=== PATIENT | female | born 1970 | race Caucasian/White ===

== ENCOUNTER 2021-09-20 15:33 | Emergency (ER) | payer MEDICARE, MEDICAID, SELFPAY ==
[2021-09-20] VITALS (14 sets, daily range): BP systolic 92–143; BP diastolic 66–83; PULSE 77–129; RESP 10–21; TEMP 36.6–36.7; O2SAT 97–100
--- NOTE | ~2021-09-20 | XR_ITS ---
EXAMINATION: XR chest 1V portable EXAM DATE: 09/20/2021 18:14 INDICATION: cough/covid,weakness and vomiting . TECHNIQUE: Portable AP frontal chest x-ray was obtained. There is no prior study for comparison. FINDINGS: Small amount of focal left basilar airspace disease, probably nonspecific pneumonia. Follow -up chest x-ray is indicated to exclude chronic process, cancer. There are right breast and axillary surgical clips. No pneumothorax or pleural effusion. Narrow cardiac silhouette, hyperinflated lungs. IMPRESSION: 1. Subsegmental left basilar airspace disease could be pneumonia but follow-up chest x-ray indicated to exclude chronic process. Reviewed, dictated and finalized at location A. ONHOLER
[2021-09-20 18:19] LABS: Basophils Percent Auto 0.3 % (0.2-1.2); Eosinophils Percent Auto 0.7 % (0-4.4); Hematocrit 42.7 % (37.0-47.0); Hemoglobin 14.6 g/dL (12.0-15.0); Immature Granulocyte Absolute 0.01 K/mm3 (0.00-0.031); Immature Granulocyte Percent A 0.2 % (0-0.5); Lymphocytes Absolute Auto 1.28 K/mm3 (0.9-3.2); Lymphocytes Percent Auto 22.1 % (18.3-44.2); Mean Corpuscular HGB Conc 34.2 g/dl (32-36); Mean Corpuscular Hemoglobin 29.3 pg (26-34); Mean Corpuscular Volume 85.7 fl (80-100); Monocytes Absolute Auto 0.4 K/mm3 (0.1-0.6); Monocytes Percent Auto 7.1 % (2.6-8.5); Neutrophils Percent Auto 69.6 % (45.5-73.1); Platelet Count Result 249 k/mm3 (150-375); Red Blood Count 4.98 M/mm3 (4.2-5.4); Red Cell Distribution Width 12.8 % (11.5-14.5); White Blood Count 5.8 K/mm3 (4.5-10.0)
[2021-09-20] MEDS: ONDANSETRON INJ 4 MG/2 ML VIAL IV PUSH (18:20)
[2021-09-20] MEDS: SODIUM CHLORIDE 0.9% IV 1,000 ML 999 ML IV CONT (18:24)
[2021-09-20 18:29] LABS: Alanine Aminotransferase 23 U/L (4-35); Albumin Level 5.2 g/dL (3.5-5.1); Alkaline Phosphatase 98 U/L (38-126); Anion Gap 16 mmol/L (8-16); Aspartate Amino Transferase 33 U/L (14-36); Bilirubin,Total 2.6 mg/dL (0.2-1.3); Blood Urea Nitrogen 22 mg/dL (7-17); Calcium 9.5 mg/dL (8.4-10.2); Carbon Dioxide 26 mmol/L (22-30); Chloride 94 mmol/L (98-107); Estimated CRCL calculation 53 ml/min; Estimated Glomerular Filt Rate > 60; Glucose 102 mg/dL (65-110); Potassium 3.4 mmol/L (3.4-5.0); Sodium 136 mmol/L (137-145)
[2021-09-20 18:31] LABS: CRP 0.8 mg/dL (<1.0)
--- NOTE | 2021-09-20 19:44 | PC.NURSE ---
Walk test ordered by ED MD Dr. Wallace. civil design technician currently in room c pt.
--- NOTE | 2021-09-20 19:58 | PC.NURSE ---
Pt unable to take a step with walker and oil change technician assisting. ED MD Wallace updated. 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 When asked why, pt reported it's bc her wc won't fit next to her bed. She never ambulates unassisted. Lives alone and has daily homemaker services. States specifically she is able to accomplish ADLs without assist and does not want to go to residential/assisted living.
--- NOTE | 2021-09-20 20:39 | ED.NAVMDI ---
HPI - Nausea/Vomiting/Diarrhea General Chief complaint: Nausea/Vomiting/Diarrhea Stated complaint: COVID + SOB Time Seen by Provider: 09/20/21 17:27 History of Present Illness HPI Narrative: Patient is a 51-year-old female who presents ER due to concern for becoming Covid positive. Patient test +2 days ago. She reports fevers and chills. She has been having persistent nausea with occasional vomiting. No chest pain or chest pressure. No productive cough. She reports she is feeling short of breath the moment however she is also crying and anxious. Patient is a not vaccinated. No alleviating factors. Related Data Allergies Allergy/AdvReac Type Severity Reaction Status Date / Time hydromorphone [From Dilaudid] Allergy Anaphylaxis Verified 09/20/21 18:16 Review of Systems Review of Systems: All systems reviewed & are unremarkable except as noted in HPI and below Constitutional: Constitutional: Reports chills, Reports fatigue and Reports fever(s) ENT: Denies nasal congestion and Denies sore throat Cardiovascular: Cardiovascular: Denies chest pain and Denies radiating jaw, neck or arm pain Respiratory: Respiratory: Reports cough and Reports dyspnea Gastrointestinal: Gastrointestinal: Denies abdominal pain, Denies diarrhea, Reports nausea and Reports vomiting PMFSH Past Medical History Medical History (Updated 09/20/21 @ 21:24 by Ciaran Wallace MD) Blindness Breast cancer Surgical History Surgical History (Updated 09/20/21 @ 21:24 by Ciaran Wallace MD) H/O mastectomy History of breast reconstruction Exam Narrative: GENERAL: Chronically ill-appearing, well-nourished, and anxious/tearful. HEAD: Normocephalic, atraumatic. ENT: Mucous membranes moist. CHEST: Clear to auscultation. No respiratory distress. HEART: Tachycardic and regular. Normal peripheral pulses. ABDOMEN: Soft, nontender, nondistended. EXTREMITIES: Normal range of motion. No edema. SKIN: Warm, dry, no rash. NEURO: Alert and oriented x3. PSYCH: Normal mood and affect. Course Course Emergency Course: Patient hydrated and given antiemetics. She feels improved. Labs unremarkable. Chest x-ray concerning for Covid pneumonia. Patient without hypoxia. Patient reports able to perform ADLs at home and can get around. She uses a walker to transfer to her wheelchair at home. Vital Signs Vital signs: Vital Signs Temperature 97.9 F 09/20/21 15:54 Pulse Rate 129 H 09/20/21 15:54 Respiratory Rate 20 09/20/21 15:54 Blood Pressure 106/73 09/20/21 15:54 Pulse Oximetry 100 09/20/21 15:54 Temperature 97.9 F 09/20/21 19:20 Pulse Rate 85 09/20/21 19:45 Respiratory Rate 20 09/20/21 19:45 Blood Pressure 143/72 H 09/20/21 19:45 Pulse Oximetry 97 09/20/21 19:45 MDM - Nausea/Vomiting/Diarrhea Lab Data Result diagrams: 09/20/21 18:10 09/20/21 18:10 Labs: Lab Results 09/20/21 09/20/21 09/20/21 Range/Units 18:10 18:10 18:11 WBC 5.8 (4.5-10.0) K/mm3 RBC 4.98 (4.2-5.4) M/mm3 Hgb 14.6 (12.0-15.0) g/dL Hct 42.7 (37.0-47.0) % MCV 85.7 (80-100) fl MCH 29.3 (26-34) pg MCHC 34.2 (32-36) g/dl RDW 12.8 (11.5-14.5) % Plt Count 249 (150-375) k/mm3 MPV 10.0 (7.4-10.4) fl Immature Gran % (Auto) 0.2 (0-0.5) % Neut % (Auto) 69.6 (45.5-73.1) % Lymph % (Auto) 22.1 (18.3-44.2) % Smyth % (Auto) 7.1 (2.6-8.5) % Eos % (Auto) 0.7 (0-4.4) % Baso % (Auto) 0.3 (0.2-1.2) % Lymph # (Auto) 1.28 (0.9-3.2) K/mm3 Smyth # (Auto) 0.4 (0.1-0.6) K/mm3 Eos # (Auto) 0.0 (0-0.3) K/mm3 Baso # (Auto) 0.0 (0.0-0.1) K/mm3 Abs Immat Gran (auto) 0.01 (0.00-0.031) K/mm3 Absolute Neuts (auto) 4.0 (1.3-6.7) K/mm3 Absolute Nucleated RBC 0.0 (0.0-0.012) K/mm3 Nucleated RBC % 0.0 (0.0-0.2) % Sodium 136 L (137-145) mmol/L Potassium 3.4 (3.4-5.0) mmol/L Chloride 94 L (98-107) mmol/L Carbon D
== END 2021-09-20 22:18 | disposition home or self-care (01) ==
PROVIDERS: Emergency Provider Emergency Medicine; PCP Internal Medicine
DX: U07.1 COVID-19 (principal); J12.82 Pneumonia due to coronavirus disease 2019; R11.0 Nausea; Z85.3 Personal history of malignant neoplasm of breast; Z90.10 Acquired absence of unspecified breast and nipple
CPT/HCPCS: 36415; 71045; 80053; 85025; 86140; 96361; 96374; 99284; J2405; J7030

== ENCOUNTER → 2021-10-20 01:02 | Outpatient (CLI) | payer MEDICARE, MEDICAID, SELFPAY ==
[2021-10-20 21:03] LABS: SARS-CoV-2 RNA PCR Positive
== END ==
PROVIDERS: PCP Internal Medicine
DX: U07.1 COVID-19 (principal)
CPT/HCPCS: C9803; U0003; U0005

== ENCOUNTER 2023-11-14 21:00 | Emergency (ER) | payer MEDICARE, MEDICAID, SELFPAY ==
--- NOTE | ~2023-11-14 | CT_ITS ---
EXAMINATION: CT brain wo con DATE: 11/15/2023 01:20 INDICATION: Syncope. TECHNIQUE: Computed tomography (CT) of the head was performed without intravenous contrast. The mA wa s adjusted according to patient size. Iterative reconstruction technique was employed. The dose-lengt h product was 605.33 mGy-cm. COMPARISON: None FINDINGS: There is no intracranial hemorrhage, acute infarction, or abnormal intracranial mass lesion . The ventricles are normal in size. The paranasal sinuses are clear. The mastoid air cells are katlin l. IMPRESSION: 1. Normal brain. Reviewed, dictated and finalized at location A. TIC PARTS DESIGNER IMPRESSION: 1. Normal brain.
--- NOTE | ~2023-11-14 | XR_ITS ---
EXAMINATION: XR chest 2V Exam Date/Time: 11/14/2023 21:40 CARTRIDGE LOADING OPERATOR HISTORY: cp Comparison: 09/20/2021. RESULT: Lines, tubes, and devices: Bilateral axillary and breast surgical clips. Lungs and pleura: Clear. Cardiomediastinal silhouette: Stable. Other: No acute osseous or upper abdominal finding. IMPRESSION: No acute cardiopulmonary process. Reviewed, dictated and finalized at location K. RIDGE LOADING OPERATOR
--- NOTE | ~2023-11-14 | CT_ITS ---
EXAMINATION: CTA chest PE protocol DATE: 11/15/2023 01:20 INDICATION: Syncope. Chest pain. Breast cancer. TECHNIQUE: Computed tomography angiography (CTA) of the chest was performed with 100 mL Omnipaque-350 intravenous contrast timed to evaluate the pulmonary arteries. Coronal maximum intensity projection 3D-reconstructions were created by the technologist. Automated exposure control and iterative reconst ruction technique were employed. The dose-length product was 465.06 mGy-cm. COMPARISON: Chest 2 views 11/14/2023 FINDINGS: There are airspace opacities with volume loss and bronchiectasis in right upper lobe and ri ght middle lobe, consistent with scarring. There is mild atelectasis in left lower lobe and lingula. A calcified left lung nodule is consistent with old granulomatous disease. No pleural effusion. The h eart size is normal. No pericardial effusion. There is no pulmonary embolus. There are bilateral favian st implants. There are changes of cholecystectomy. There is a small focus of old calcified fat necros is in the abdomen. There is a small sliding hiatal hernia. There is mild thoracic spondylosis. IMPRESSION: 1. No pulmonary embolus. 2. Chronic lung disease involving right upper lobe and right middle lobe. 3. Small sliding hiatal hernia. Reviewed, dictated and finalized at location A. NITIES TEACHER
--- NOTE | 2023-11-14 21:01 | ECG_ITS ---
Measurements Intervals Venus Rate: 112 P: 75 MN: 159 QRS: -63 QRSD: 86 T: 60 QT: 302 QTc: 413 Interpretive Statements SINUS TACHYCARDIA POSSIBLE LEFT ATRIAL ENLARGEMENT [-0.1mV P WAVE IN V1/V2] MARKED LEFT AXIS DEVIATION [QRS AXIS < -30] NONSPECIFIC T-WAVE ABNORMALITY BASELINE ARTIFACT LIMITS INTERPRETATION NO PREVIOUS ECG AVAILABLE FOR COMPARISON Electronically Signed On 11-15-2023 8:44:54 COMMUNICATIONS EDITOR by Chanel Beltran M.D.
[2023-11-14 21:10] VITALS: BP 115/80; PULSE 94; RESP 15; TEMP 36.8; O2SAT 100
[2023-11-14 21:29] LABS: Basophils Percent Auto 0.4 % (0.2-1.2); Eosinophils Absolute Auto 0.1 K/mm3 (0-0.3); Hematocrit 40.3 % (37.0-47.0); Hemoglobin 13.1 g/dL (12.0-15.0); Immature Granulocyte Absolute 0.01 K/mm3 (0.00-0.031); Immature Granulocyte Percent A 0.2 % (0-0.5); Lymphocytes Absolute Auto 1.69 K/mm3 (0.9-3.2); Lymphocytes Percent Auto 35.9 % (18.3-44.2); Mean Corpuscular HGB Conc 32.5 g/dl (32-36); Mean Corpuscular Volume 89.4 fl (80-100); Mean Platelet Volume 9.1 fl (7.4-10.4); Monocytes Absolute Auto 0.4 K/mm3 (0.1-0.6); Monocytes Percent Auto 8.7 % (2.6-8.5); Neutrophils Absolute Auto 2.4 K/mm3 (1.3-6.7); Neutrophils Percent Auto 51.8 % (45.5-73.1); Platelet Count Result 175 k/mm3 (150-375); Red Blood Count 4.51 M/mm3 (4.2-5.4); Red Cell Distribution Width 13.5 % (11.5-14.5); White Blood Count 4.7 K/mm3 (4.5-10.0)
[2023-11-14 21:40] LABS: INR 0.9
[2023-11-14 21:41] LABS: Partial Thromboplastin Time 22.5 SECONDS (22.3-36.8)
[2023-11-14 21:42] LABS: Alanine Aminotransferase 21 U/L (6-35); Albumin Level 4.2 g/dL (3.5-5.1); Alkaline Phosphatase 68 U/L (38-126); Anion Gap 8 mmol/L (8-16); Aspartate Amino Transferase 32 U/L (14-36); Bilirubin,Total 1.6 mg/dL (0.2-1.3); Blood Urea Nitrogen 16 mg/dL (7-17); Calcium 8.2 mg/dL (8.4-10.2); Carbon Dioxide 25 mmol/L (22-30); Chloride 106 mmol/L (98-107); Estimated CRCL calculation 56 ml/min; Estimated Glomerular Filt Rate > 60; Glucose 106 mg/dL (65-110); Lipase 186 U/L (23-300); Potassium 3.9 mmol/L (3.4-5.0); Sodium 139 mmol/L (137-145)
[2023-11-14 21:54] LABS: Troponin I < 0.012 ng/mL (0.000-0.034)
[2023-11-15 00:48] VITALS: BP 130/89; PULSE 83; RESP 16; O2SAT 100
--- NOTE | 2023-11-15 02:19 | ED.GENADULT ---
HPI - General Adult General Chief complaint: Chest Pain Stated complaint: chest pain Time Seen by Provider: 11/15/23 00:05 History of Present Illness HPI narrative: patient 53-year-old female who presents emergency department with chief complaint of left upper extremity discomfort. Patient reports that she has prior history of breast cancer and had a double mastectomy the patient reports that she started having swelling and pain in her left upper extremity and reports that she also had an episode where she briefly passed out and family noticed that she may have had some shaking within regain consciousness. The patient had no postictal phase no bowel or bladder dysfunction. Related Data Allergies Allergy/AdvReac Type Severity Reaction Status Date / Time hydromorphone [From Dilaudid] Allergy Unknown Anaphylaxis Verified 11/14/23 22:44 aspirin AdvReac Unknown Vomiting Verified 11/14/23 22:44 Review of Systems Review of Systems: A 10 system review of systems was completed on the patient and is negative except for what is stated in the HPI. Nursing and ancillary documentation was reviewed. PMFSH Past Medical History Medical History Blindness Breast cancer Surgical History Surgical History H/O mastectomy History of breast reconstruction Exam Narrative: GENERAL: Well-appearing, well-nourished, and in no acute distress. HEAD: Normocephalic, atraumatic. EYES: PERRLA and EOMI. ENT: Nares clear, no rhinorrhea or epistaxis. Mucous membranes moist. NECK: Supple. CHEST: Clear to auscultation. No respiratory distress. HEART: Regular rate and rhythm. No murmur heard. Normal peripheral pulses. ABDOMEN: Soft, nontender, nondistended, normal active bowel sounds. EXTREMITIES: Normal range of motion. No edema. SKIN: Warm, dry, no rash. NEURO: No focal deficits. Alert and oriented x3. PSYCH: Normal mood and affect. Course Vital Signs Vital signs: Vital Signs Temperature 36.8 C 11/14/23 21:10 Pulse Rate 94 11/14/23 21:10 Respiratory Rate 15 11/14/23 21:10 Blood Pressure 115/80 11/14/23 21:10 Pulse Oximetry 100 11/14/23 21:10 Oxygen Delivery Room Air 11/14/23 21:10 Temperature 36.8 C 11/14/23 21:10 Pulse Rate 83 11/15/23 00:48 Respiratory Rate 16 11/15/23 00:48 Blood Pressure 130/89 11/15/23 00:48 Pulse Oximetry 100 11/15/23 00:48 Oxygen Delivery Room Air 11/14/23 21:10 Medical Decision Making MDM Narrative Medical decision making narrative: Differential diagnosis includes syncopal episode, seizure, pulmonary embolism, left upper extremity DVT laboratory studies were obtained on the patient showed normal CBC normal CMP troponin was negative CT head was negative CTA chest showed no evidence of PE Vital Signs Vital Signs: Vital Signs Temperature 36.8 C 11/14/23 21:10 Pulse Rate 94 11/14/23 21:10 Respiratory Rate 15 11/14/23 21:10 Blood Pressure 115/80 11/14/23 21:10 Pulse Oximetry 100 11/14/23 21:10 Oxygen Delivery Room Air 11/14/23 21:10 Temperature 36.8 C 11/14/23 21:10 Pulse Rate 83 11/15/23 00:48 Respiratory Rate 16 11/15/23 00:48 Blood Pressure 130/89 11/15/23 00:48 Pulse Oximetry 100 11/15/23 00:48 Oxygen Delivery Room Air 11/14/23 21:10 Lab Data 11/14/23 21:23 11/14/23 21:23 Labs: Lab Results 11/14/23 11/15/23 Range/Units 21:23 02:07 WBC 4.7 (4.5-10.0) K/mm3 RBC 4.51 (4.2-5.4) M/mm3 Hgb 13.1 (12.0-15.0) g/dL Hct 40.3 (37.0-47.0) % MCV 89.4 (80-100) fl MCH 29.0 (26-34) pg MCHC 32.5 (32-36) g/dl RDW 13.5 (11.5-14.5) % Plt Count 175 (150-375) k/mm3 MPV 9.1 (7.4-10.4) fl Immature Gran % (Auto) 0.2 (0-0.5) % Neut % (Auto) 51.8 (45.5-73.1) % Lymph % (Auto) 35.9 (18.3-44.2) %
[2023-11-15 02:42] LABS: Troponin I < 0.012 ng/mL (0.000-0.034)
[2023-11-15 03:30] VITALS: BP 127/76; PULSE 81; RESP 16; O2SAT 100
== END 2023-11-15 03:32 | disposition home or self-care (01) ==
PROVIDERS: Emergency Provider Emergency Medicine; PCP Internal Medicine
DX: R22.32 Localized swelling, mass and lump, left upper limb (principal); R55 Syncope and collapse; H54.7 Unspecified visual loss; Z85.3 Personal history of malignant neoplasm of breast; Z90.13 Acquired absence of bilateral breasts and nipples; R00.0 Tachycardia, unspecified; R94.31 Abnormal electrocardiogram [ECG] [EKG]
CPT/HCPCS: 36415; 70450; 71046; 71275; 80053; 83690; 84484; 85025; 85610; 85730; 93005; 93971; 99284; Q9967

== ENCOUNTER 2023-11-15 08:04 | Outpatient (CLI) | payer MEDICARE, MEDICAID, SELFPAY ==
--- NOTE | ~2023-11-15 | US_ITS ---
EXAMINATION: US venous doppler UE LT DATE: 11/15/2023 09:13 INDICATION: Left upper limb pain and swelling TECHNIQUE: Grayscale images without and with compression and Doppler images of the left upper extremi ty veins were obtained. COMPARISON: None. FINDINGS: The left internal jugular vein, subclavian vein, axillary vein, brachial vein, basilic vein, cephalic vein, radial vein, and ulnar vein are patent. IMPRESSION: 1. Patent left upper extremity veins. No evidence of venous thrombosis. Reviewed, dictated and finalized at location A. MANUFACTURING SPECIALIST
== END 2023-11-15 08:05 | disposition home or self-care (01) ==
PROVIDERS: PCP Internal Medicine; Visit Provider Emergency Medicine
DX: M79.622 Pain in left upper arm (principal)
CPT/HCPCS: 93971

== ENCOUNTER 2025-04-16 16:21 | Outpatient (CLI) | payer MEDICARE, MEDICAID, SELFPAY ==
--- NOTE | ~2025-04-16 | US_ITS ---
RIGHT LOWER EXTREMITY VENOUS ULTRASOUND Ordering provider: Monserrat Smith, History: . Right leg pain . Comparison: None. FINDINGS: --COMMON FEMORAL: Patent and free of thrombus. Normal compressibility, phasic flow and augmentation. --PROXIMAL SUPERFICIAL FEMORAL: Patent and free of thrombus. Normal compressibility, phasic flow and augmentation. --DISTAL SUPERFICIAL FEMORAL: Patent and free of thrombus. Normal compressibility, phasic flow and au gmentation. --POPLITEAL: Patent and free of thrombus. Normal compressibility, phasic flow and augmentation. --POSTERIOR TIBIAL: Patent and free of thrombus. Normal compressibility, phasic flow and augmentation . IMPRESSION: Negative right lower extremity venous US. No deep vein thrombosis. Reviewed, dictated and finalized at location A.
--- OUTSIDE RECORDS SUMMARY | 2025-04-16 16:25 | XMS_ITS | Encounter Summary ---
Author Organization [facility] Address [address] [facility] [address] [place] [address] Phone Care Team Providers Care Chef Head Name Role Phone Carol Harris MD Primary Care Provid er Carol Harris MD Primary Care Provid er Daniella Elmore MD Primary Care Provider + No, Physician Primary Care Provider [phone] Daniella Elmore MD Primary Care Provider + Elke Perrin MD Unavailable [phone] [facility] Unavailable [phone] Cori Mcgee NP Primary Care Provider + [phone] Dipak Ramsey MD Unavailable [phone] Kurtis Tyson MD Unavailable + [phone] Helen Sweeney MD Unavailable [phone] James Reece MD Unavailable [phone] Daniella Elmore MD Unavailable [phone] Osorio Camacho MD Unavailable [phone] Cori Mcgee NP Primary Care Provider + [phone] Unknown, Notinfile Primary Care Provider Unavail able Unknown, Notinfile Primary Care Provider Unavail able Unknown, Notinfile Primary Care Provider Unavail able Leroy Cotton MD Unavailable [phone] Niles Valencia MD Unavailable [phone] Jaimie Smith MD Primary Care Provide r Дмитрий Pearson MD PhD Unavailable Osorio Munoz MD Unavailable [phone] Peewee Palma MD PhD Unavailable [phone] Curt Layne MD Unavailable Carolina Lutz RN Unavailable Brayden James MD Unavailable Encounter Details Date Type Department Care Team (Latest Contact Info) Description 02/29/2012 Orders Only [facility] Scanning, Provider Social History Tobacco Use Types Packs/Day Years Used Date Smoking Tobacco: Never Assessed Comments Unknown Sex and Gender Information Value Date Recorded Sex Assigned at Not on file Legal Sex Female 2:52 PM DIRECTOR 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 FOR THERAPY Gender Identity Not on file Sexual Orientation Not on file documented as of this encounter Plan of Treatment Not on file documented as of this encounter Procedures Procedure Name Priority Date/Time Associated Diagnosis Comments SCAN - LABS 02/29/2012 documented in this encounter Results * SCAN - LABS (02/29/2012) us Provider Scanning Final Result documented in this encounter Visit Diagnoses Not on filedocumented in this encounter Care Teams Chef Head Relationship Specialty Start Date End Date Carol Harris MD PCP - General 09/18/13 06/26/17 Carol Harris MD PCP - General 07/12/11 09/17/13 Daniella Elmore MD PCP - General 06/27/17 01/10/18 No, Physician PCP - General 01/11/18 02/04/18 Daniella Elmore MD PCP - General 02/05/18 07/17/18 Cori Mcgee NP PCP - General 07/18/18 04/22/19 Cori Mcgee, TRANSLATOR PCP - General 04/24/19 07/24/19 Unknown, Notinfile PCP - General 07/25/19 08/27/19 Unknown, Notinfile PCP - General 08/29/19 03/23/20 Unknown, Notinfile PCP - General 08/28/19 08/28/19 Jaimie Smith MD [address] [place] [address] PCP - General Internal Medicine 03/24/20 Elke Perrin MD Consulting Physician Gastroenterology 03/21/18 08/13/21 Nafisa Son MD Consulting Physician Medical Oncology 03/21/18 04/01/19 Dipak Ramsey MD Referring Physician Otolaryngology 04/02/19 04/22/19 Kurtis Tyson MD Surgeon Ophthalmology 04/02/19 Helen Sweeney MD [address] [place] [address] Referring Physician Ophthalmology 04/02/19 [place] [address] [place] [id number] Consulting Physician Pulmonary Disease 04/02/19 0 Daniella Elmore MD [address] [facility] [address] [place] [address] Referring Physician Family Medicine 04/23/19 03/23/20 Osorio Camacho MD [address] [place] [address] Consulting Physician Internal Medicine 04/23/19 0 Leroy Cotton MD [address] [facility] [address] [place] [address] Referring Physician Dermatology 12/06/19 [place] [address] [facility] [address] [place] [address] Consulting Physician Pulmonary Disease 03/24/20 Дмитрий Pearson MD PhD [address] [facility] [address] [place], [place] [id number] Consulting Physician Neurology 08/11/21 10/09/22 Osorio Munoz MD [address] [facility] [address] [place] [address] Consulting Physician Neurology 08/11/21 05/09/22 Peewee Palma MD PhD [address] [facility] [address] [place] [address] Medical Oncologist/Burrito Maker Medical Oncology 08/14/21 05/31/22 Curt Layne MD [address] [facility] [address] [place] [address] Consulting Physician Gastroenterology 08/14/21 Carolina Lutz, RN [address] [address] Horticultural Specialty Grower Inside 06/25/22 Brayden James MD [address] [address] Consulting Physician Medical Oncology 11/10/22 documented as of this encounter
--- OUTSIDE RECORDS SUMMARY | 2025-04-16 16:25 | XMS_ITS | Data Portability ---
Author Organization [facility] [employer], Main Office Address [address] [place] [address] Assessment Encounter Date Assessment Date Assessment LastModified by Organization Details LastModified Time 06/28/2023 06/28/2023 04/13/2023: B12 989 VIT D 28.0 Gluc 108, ca 7.7 Chol 218, LDL 135 WBC 3.8 40 minutes spent with the patient [email or web address] Not available 06/28/2023 12:03:36 12/13/2023 12/13/2023 04/13/2023: B12 989 VIT D 28.0 Gluc 108, ca 7.7 Chol 218, LDL 135 WBC 3.8 08/24/2023: WBC 3.7 Bili T 2.20H 10/28/2023: Gluc 105 11/14/2023: [facility] 8.2L, T bili 1.6H [facility] Not available 12/13/2023 15:26:55 06/07/2024 06/07/2024 04/13/2023: B12 989 VIT D 28.0 Gluc 108, ca 7.7 Chol 218, LDL 135 WBC 3.8 08/24/2023: WBC 3.7 Bili T 2.20H 10/28/2023: Gluc 105 11/14/2023: [facility] Ca 8.2L, T bili 1.6H [facility] Not available 06/07/2024 17:49:03 04/16/2025 04/16/2025 04/13/2023: B12 989 VIT D 28.0 Gluc 108, ca 7.7 Chol 218, LDL 135 WBC 3.8 08/24/2023: WBC 3.7 Bili T 2.20H 10/28/2023: Gluc 105 11/14/2023: [facility] Ca 8.2L, T bili 1.6H 11/16/2024: Jelena Huff [employer] [facility] PLT 144 CMP stable 45 minutes spent with the patient from 2.15pm till 3.00pm Her oncologist note reviewed, labs reviewed from oncology, referrals and labs provided advised to get US R LE stat and called [facility] to notify that she is to come there [email or web address] Not available 04/16/2025 16:17:47 Plan of Treatment Reminders Order Date Submit Date Provider Last Modified By Organization Details Last Modified Time Details Appointments Any 2024 02:30P Audrey ascencio MD Not available Not available Not available Any 2024 02:45P Audrey ascencio MD Not available Not available Not available Lab vitamin D, 25-hydrox y, total, serum [address] (Lab), [address] [place], [address], 04/16/2025 16:57:42 lipid panel, serum [address] (Lab), [address] [place], [address], 04/16/2025 16:57:42 CMP, serum or plasma [address] (Lab), [address] [place], [address], 04/16/2025 16:57:42 CBC w/ auto diff [address] (Lab), [address] [place], [address], 04/16/2025 16:57:42 TSH, serum or plasma [address] (Lab), [address] [place], [address], 04/16/2025 16:57:42 vitamin D, 25-hydrox y, total, serum [address] (Lab), [address] [place], [address], 12/04/2024 08:42:53 lipid panel, serum [address] (Lab), [address] [place], [address], 12/04/2024 08:42:52 CMP, serum or plasma [address] (Lab), [address] [place], [address], 12/04/2024 08:42:52 CBC w/ auto diff [address] (Lab), [address] [place], [address], 12/04/2024 08:42:53 TSH, serum or plasma [address] (Lab), [address] [place], [address], 12/04/2024 08:42:53 T4, free, serum [address] (Lab), [address] [place], [address], 12/04/2024 08:42:53 vitamin D, 25-hydrox y, total, serum [address] (Lab), [address] [place], [address], 06/18/2024 09:11:30 lipid panel, serum [address] (Lab), [address] [place], [address], 06/18/2024 09:11:29 CMP, serum or plasma [address] (Lab), [address] [place], [address], 06/18/2024 09:11:30 CBC w/ auto diff [address] (Lab), [address] [place], [address], 06/18/2024 09:11:30 TSH, serum or plasma [address] (Lab), [address] [place], [address], 06/18/2024 09:11:30 T4, free, serum [address] (Lab), [address] [place], [address], 06/18/2024 09:11:30 vitamin D, 25-hydrox y, total, serum [address] (Lab), [address] [place], [address], 10/13/2023 09:48:03 lipid panel, serum 2022 023 [facility] (Lab), [address] [place], [address], 08/24/2023 18:23:10 CMP, serum or plasma 2022 023 [facility] (Lab), [address] [place], [address], 08/24/2023 18:23:20 CBC w/ auto diff 2022 023 [facility] (Lab), [address] [place], [address], 08/24/2023 18:14:18 TSH, serum or plasma 2022 023 [facility] (Lab), [address] [place], [address], 08/24/2023 18:58:04 T4, free, serum 2022 023 [facility] (Lab), [address] [place], [address], 08/24/2023 18:45:37 vitamin D, 25-hydrox y, total, serum [address] (Lab), [address] [place], [address], 04/26/2023 11:31:38 lipid panel, serum [address] (Lab), [address] [place], [address], 04/26/2023 11:30:33 CMP, serum or plasma [address] (Lab), [address] [place], [address], 04/26/2023 11:30:51 CBC w/ auto diff [address] (Lab), [address] [place], [address], 04/26/2023 11:31:07 TSH, serum or plasma [address] (Lab), [address] [place], [address], 04/26/2023 11:31:20 T4, free, serum 2022 023 [email or web address] [facility] ([facility] [address] [place], [address], 04/26/2023 11:31:[address] referral 2024 025 [email or web address] Jason Laboy MD, [address] [facility], [address], [place], [address], 04/16/2025 16:00:24 gastroent erologist referral 2024 025 [email or web address] Vargas Aden MD, [address] [facility], [facility] [address], [address], 04/16/2025 16:00:24 gastroent erologist referral - Please call patient to [facility] nt. Thank you. 2024 025 [email or web address] Vargas Aden MD, [address] [facility], [facility] [address], [place], [address], 04/16/2025 16:34:10 cardiolog ist referral - Please call patient to schedule. 2024 025 [email or web address] [place], [address] , [place] [address], [address], 04/16/2025 16:00:24 oncologis t referral 2023 024 MICHAEL Magana MD, [address], [place], [address], 11/16/2024 12:06:30 gastroent erologist referral - Please call patient to schedule. 2023 024 [facility], [address], [address], [place], [address], 01/16/2025 15:41:20 cardiolog ist referral - Please call patient to schedule. 2023 024 [email or web address] [place], [address], [address], [place], [address], 12/10/2024 08:49:26 gastroent erologist referral 2023 024 [email or web address] Del Cid MD, [address], [address], [place], [address], 07/10/2024 08:34:13 cardiolog ist referral 2023 024 [place], [address], [address], [place], [address], 07/10/2024 08:34:11 gastroent erologist referral 2022 023 tiffanie Del Cid MD, [address], [address], [place], [address], 12/27/2023 08:43:04 cardiolog ist referral 2022 023 [place], [address] , [address], [place], [address], 12/27/2023 08:43:02 hematolog ist/oncol ogist referral 2022 023 MICHAEL Palma MD, [address] [facility] , [place], [address], 08/19/2023 18:23:20 cardiolog ist referral 2022 023 [email or web address], [address], [address], [place], [address], 04/26/2023 11:29:55 hematolog ist/oncol ogist referral 2022 023 [email or web address] Palma MD, [address], [place], [address], 04/26/2023 11:29:24 Procedures None recorded. Surgeries None recorded. Imaging US, duplex, venous, lower extremity , unilatera l - STAT hold and call, Dr. Emili ascencio 2024 025 [facility], [address] [facility] [address], [place], [address], 04/16/2025 16:02:25 DEXA, axial skeleton 2024 025 [facility] ([facility]), [address] [place], [address], 04/16/2025 16:00:08 DEXA, axial skeleton [email or web address] ([facility]), [address] [place], [address], 06/12/2024 11:52:10 DEXA, axial skeleton 2023 024 [facility] ([facility]), [address] [place], [address], 12/16/2023 16:31:55 Medication Orders cholecalc iferol (vitamin D3) 1,250 mcg (50,000 unit) capsule 2022 023 [id number], [address] [place], [place], [id number], 04/16/2025 15:17:23 Patient TargetsNo targets recorded. Patient Instructions Encounter Date Encounter Id Patient Instructions Last Modified By Organization Details Last Modified Time 06/07/2024 [id number] dementia rating scale-2* [email or web address] Not available 06/07/2024 18:07:21 alcohol misuse* [email or web address] Not available 06/13/2024 08:02:19 depression screening* [email or web address] Not available 06/07/2024 18:07:40 Timed Up and Go test (TUG)* [email or web address] Not available 06/07/2024 19:17:26 multi-dimensiona l health assessment questionnaire* [email or web address] Not available 06/07/2024 18:06:21 advance directiv es: care instructions [email or web address] 2 Not available 06/07/2024 19:17:26 advance care planning: care instructions [email or web address] 2 Not available 06/07/2024 19:17:26 [place] Advance Directives [email or web address] 2 Not available 06/07/2024 19:17:26 Personalized a lth Plan and Screening Recommendations Advance Directives - Do you have one? No You have indicated that you are capable of preparing your advance care directive Advance Directives - Do we have your advance directive on file in your health record? Primary Prevention/Interven tion (prevents or decreases the chance of common diseases from occurring) Smoking Risk: Non Smoker Alcohol Misuse Screening: Negative Weight: Overweight try to lose 5% of your body weight Physical activity: Appropriate physical activity minimum of 10-20 minutes of activity that causes mild breathlessness/day Nutrition: Good Refer to attached handout Heart-Healthy Diet: After Your Visit Fall Risk (screened today): High Refer to attached handout Preventing Falls: After your Visit Vaccines Pneumococcal: Recommended today, but you have declined Influenza: Recommended today, but you have declined Chronic Disease Risks Stroke: Intermediate Risk Follow Heart Healthy/ DASH diet. Heart Attack: Intermediate Risk Follow Heart Healthy/ DASH diet. Clogging of the Arteries: Intermediate Risk Follow Heart Healthy/ DASH diet. Diabetes: Intermediate Risk Drastically limit sugar and products made with any type of flour (bread, pasta, cereal, cookies, crackers, etc.) Secondary Prevention/Interven tion (detects treatable diseases before they may cause symptoms, disability, or ) Breast Cancer Screening with mammogram: No screening necessary Cervical/Uterine/Ov yomaira Cancer Screening: No screening necessary Osteoporosis Screening: Recommended today Colon Cancer Screening: No screening necessary Eye Disease Screening: Recommended today Dementia Risk: Low Depression Screening: Positive Active diagnosis, Continue current treatment plan [email or web address] Not available 06/07/2024 18:09:53 Reason for Referral Referring Physician: Alexandrea Smith, Internal Medicine, Encounter Date: 03/08/2023 Yard Laborer Referral for Sc reening for cardiovascular system disease Referring Physician: Gregorio Geronimo, Encounter Date: 03/08/2023 Referring Physician: Gregorio Geronimo, Encounter Date: 06/28/2023 Yard Laborer Referral for Sc reening for cardiovascular system disease Referring Physician: Gregorio Geronimo, Encounter Date: 06/28/2023 Extension Course Counselor Referral for Colostomy present Referring Physician: Gregorio Geronimo, Encounter Date: 06/28/2023 Yard Laborer Referral for Sc reening for cardiovascular system disease Referring Physician: Gregorio Geronimo, Encounter Date: 12/13/2023 Extension Course Counselor Referral for Colostomy present Referring Physician: Gregorio Geronimo, Encounter Date: 12/13/2023 Yard Laborer Referral for Sc reening for cardiovascular system disease Please call patient to schedule. Referring Physician: Gregorio Geronimo, Encounter Date: 06/07/2024 Extension Course Counselor Referral for Colostomy present Please call patient to schedule. Referring Physician: Gregorio Geronimo, Encounter Date: 06/07/2024 Referring Physician: Gregorio Geronimo, Encounter Date: 06/07/2024 Yard Laborer Referral for Sc reening for cardiovascular system disease Please call patient to schedule. Referring Physician: Gregorio Geronimo, Encounter Date: 04/16/2025 Extension Course Counselor Referral for Colostomy present Please call patient to schedu an appointment. Thank you. 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 Referring Physician: Alexandrea Smith, Internal Medicine, Encounter Date: 04/16/2025 Results Created Date Observation Date Name Description Value Unit Range Abnormal Flag Note LastModifiedBy Organization Detail LastModifiedTime 03/24/20 23 03/24/2023 CBC/C OMPLE TE BLD COUNT W/DIF F white blood cells 3.5 x10'3 /uL 4.2-10 .8 low Not Available [facility] (Lab) [address] [place], [address], 03/24/2023 10:09:09 03/24/20 23 03/24/2023 CBC/C OMPLE TE BLD COUNT W/DIF F red blood cells 4.87 x10'6 /uL 3.80-5 .20 Not Available [facility] (Lab) [address] [place], [address], 03/24/2023 10:09:09 03/24/20 23 03/24/2023 CBC/C OMPLE TE BLD COUNT W/DIF F hemoglobin 13.9 g/dL 12.0-1 5.6 Not Available [facility] (Lab) [address] [place], [address], 03/24/2023 10:09:09 03/24/20 23 03/24/2023 CBC/C OMPLE TE BLD COUNT W/DIF F hematocrit 43.2 % 35.7-4 5.7 Not Available [facility] (Lab) [address] [place], [address], 03/24/2023 10:09:09 03/24/20 23 03/24/2023 CBC/C OMPLE TE BLD COUNT W/DIF F mean red cell volume 88.7 fL 82.0-9 9.0 Not Available [facility] (Lab) [address] [place], [address], 03/24/2023 10:09:09 03/24/20 23 03/24/2023 CBC/C OMPLE TE BLD COUNT W/DIF F mean red cell hemoglobin 28.5 pg 27.0-3 3.0 Not Available [facility] (Lab) [address] [place], [address], 03/24/2023 10:09:09 03/24/20 23 03/24/2023 CBC/C OMPLE TE BLD COUNT W/DIF F mean RBC HGB concentratio n 32.2 g/dL 31.0-3 6.0 Not Available [facility] (Lab) [address] [place], [address], 03/24/2023 10:09:09 03/24/20 23 03/24/2023 CBC/C OMPLE TE BLD COUNT W/DIF F red cell distribution width 13.4 % 11.8-1 5.5 Not Available [facility] (Lab) [address] [place], [address], 03/24/2023 10:09:09 03/24/20 23 03/24/2023 CBC/C OMPLE TE BLD COUNT W/DIF F platelets 173 x10'3 /uL 150-40 0 Not Available [facility] (Lab) [address] [place], [address], 03/24/2023 10:09:09 03/24/20 23 03/24/2023 CBC/C OMPLE TE BLD COUNT W/DIF F mean platelet volume 9.2 fL 9.0-12 .4 Not Available [facility] (Lab) [address] [place], [address], 03/24/2023 10:09:09 03/24/20 23 03/24/2023 CBC/C OMPLE TE BLD COUNT W/DIF F neutrophils 44.5 % 39.0-7 2.0 Not Available [facility] (Lab) [address] [place], [address], 03/24/2023 10:09:09 03/24/20 23 03/24/2023 CBC/C OMPLE TE BLD COUNT W/DIF F lymphocytes 43.8 % 16.0-4 7.0 Not Available [facility] (Lab) [address] [place], [address], 03/24/2023 10:09:09 03/24/20 23 03/24/2023 CBC/C OMPLE TE BLD COUNT W/DIF F monocytes 7.7 % 5.0-12 .0 Not Available [facility] (Lab) [address] [place], [address], 03/24/2023 10:09:09 03/24/20 23 03/24/2023 CBC/C OMPLE TE BLD COUNT W/DIF F eosinophils 3.4 % 1.0-7. 0 Not Available [facility] (Lab) [address] [place], [address], 03/24/2023 10:09:09 03/24/20 23 03/24/2023 CBC/C OMPLE TE BLD COUNT W/DIF F basophils 0.6 % 0.0-2. 0 Not Available [facility] (Lab) [address] [place], [address], 03/24/2023 10:09:09 03/24/20 23 03/24/2023 CBC/C OMPLE TE BLD COUNT W/DIF F immature granulocytes 0.0 % 0.00-0 .50 Not Available [facility] (Lab) [address] [place], [address], 03/24/2023 10:09:09 03/24/20 23 03/24/2023 CBC/C OMPLE TE BLD COUNT W/DIF F neutrophils, absolute count 1.55 x10'3 /uL 1.5-8. 0 Not Available [facility] (Lab) [address] [place], [address], 03/24/2023 10:09:09 03/24/20 23 03/24/2023 CBC/C OMPLE TE BLD COUNT W/DIF F lymphocytes, absolute count 1.53 x10'3 /uL 1.07-3 .43 Not Available [facility] (Lab) [address] [place], [address], 03/24/2023 10:09:09 03/24/20 23 03/24/2023 CBC/C OMPLE TE BLD COUNT W/DIF F monocytes, absolute count 0.27 x10'3 /uL 0.29-0 .99 low Not Available [facility] (Lab) [address] [place], [address], 03/24/2023 10:09:09 03/24/20 23 03/24/2023 CBC/C OMPLE TE BLD COUNT W/DIF F eosinophils, absolute count 0.12 x10'3 /uL 0.02-0 .53 Not Available [facility] (Lab) [address] [place], [address], 03/24/2023 10:09:09 03/24/20 23 03/24/2023 CBC/C OMPLE TE BLD COUNT W/DIF F basophils, absolute count 0.02 x10'3 /uL 0.01-0 .08 Not Available [facility] (Lab) [address] [place], [address], 03/24/2023 10:09:09 03/24/20 23 03/24/2023 CBC/C OMPLE TE BLD COUNT W/DIF F immature granulocytes ,absolute 0.00 x10'3 /uL 0.00-0 .05 Not Available [facility] (Lab) [address] [place], [address], 03/24/2023 10:09:09 03/24/20 23 03/24/2023 CBC/C OMPLE TE BLD COUNT W/DIF F nucleated red blood cells 0.0 % -0 Not Available [facility] (Lab) [address] [place], [address], 03/24/2023 10:09:09 03/24/20 23 03/24/2023 CBC/C OMPLE TE BLD COUNT W/DIF F NRBC# 0.00 x10'3 /uL Not Available [facility] (Lab) [address] [place], [address], 03/24/2023 10:09:09 03/24/20 23 03/24/2023 LIPID PANEL cholesterol 253 mg/dL 140-19 9 high NIH POLLY NSUS RECOM MENDA TION FOR KHUSHBU STERO L: ADULT CHILD LOW RISK: <200 <170 BORDE RLINE : <200- 239 ----- HIGH RISK: >240 >200 Not Available [facility] (Lab) [address] [place], [address], 03/24/2023 10:18:13 03/24/20 23 03/24/2023 LIPID PANEL triglyceride s 130 mg/dL 0-150 NIH POLLY NSUS REPOR T RECOM MENDA TION FOR TRIGL YCERI YOLANDA: ADULT CHILD LOW RISK: <150 ----- BODER LINE: 150-1 99 ----- HIGH RISK: >200 ----- Not Available [facility] (Lab) [address] [place], [address], 03/24/2023 10:18:13 03/24/20 23 03/24/2023 LIPID PANEL HDL cholesterol 53 mg/dL 40- Not Available [facility] (Lab) [address] [place], [address], 03/24/2023 10:18:13 03/24/20 23 03/24/2023 LIPID PANEL LDL cholesterol, calculated 174 mg/dL 0-130 high NIH POLLY NSUS REPOR T RECOM MENDA TIONS FOR LDL: ADULT CHILD LOW RISK <130 <110 (OPTI MAL LDL) <100 ----- BORDE RLINE : 130-1 59 ----- HIGH RISK: >160 >130 A TRIGL YCERI DE RESUL T >400 INVAL IDATE S THE CALCU LATIO N FOR LDL FRACT IONAT ION - THE LDL RESUL T WILL NOT BE REPOR CINDY. Not Available [facility] (Lab) [address] [place], [address], 03/24/2023 10:18:13 03/24/20 23 03/24/2023 COMPR EHENS SHWETHA METAB OLIC PANEL sodium 140 mmol/ L 137-14 5 Not Available [facility] (Lab) [address] [place], [address], 03/24/2023 10:18:28 03/24/20 23 03/24/2023 COMPR EHENS SHWETHA METAB OLIC PANEL potassium 4.1 mmol/ L 3.5-5. 1 Not Available [facility] (Lab) [address] [place], [address], 03/24/2023 10:18:28 03/24/20 23 03/24/2023 COMPR EHENS SHWETHA METAB OLIC PANEL chloride 104 mmol/ L 98-107 Not Available [facility] (Lab) [address] [place], [address], 03/24/2023 10:18:28 03/24/20 23 03/24/2023 COMPR EHENS SHWETHA METAB OLIC PANEL carbon dioxide 27 mmol/ L 22-30 Not Available [facility] (Lab) [address] [place], [address], 03/24/2023 10:18:28 03/24/20 23 03/24/2023 COMPR EHENS SHWETHA METAB OLIC PANEL anion gap 13.1 mmol/ L 14-22 low Not Available [facility] (Lab) [address] [place], [address], 03/24/2023 10:18:28 03/24/20 23 03/24/2023 COMPR EHENS SHWETHA METAB OLIC PANEL glucose 101 mg/dL 70-99 high Not Available [facility] (Lab) [address] [place], [address], 03/24/2023 10:18:28 03/24/20 23 03/24/2023 COMPR EHENS SHWETHA METAB OLIC PANEL BUN 14 mg/dL 8-19 Not Available [facility] (Lab) [address] [place], [address], 03/24/2023 10:18:28 03/24/20 23 03/24/2023 COMPR EHENS SHWETHA METAB OLIC PANEL creatinine 0.89 mg/dL 0.66-1 .25 Not Available [facility] (Lab) [address] [place], [address], 03/24/2023 10:18:28 03/24/20 23 03/24/2023 COMPR EHENS SHWETHA METAB OLIC PANEL GFR >60 Refer ence Range : [place] ge GFR Healt hy Adult : >60 mL/mi n/1.7 3 m2 Chron ic Kidne y Disea se: 15-60 mL/mi n/1.7 3 m2 Kidne y Failu re: <15/m L/min /1.73 m2 www.n iddk. nih.g ov The MDRD study equat ion has not been valid ated in child ronald <18 years of age; pregn ant women ; the elder ly >85 years of age; or in some racia l or ethni c subgr oups, such as [facility] nics. Outsi de the valid ated myron eters , estim ated GFR is less accur ate, requi ring clini milagros judgm ent on a case- by-ca se basis . Clini milagros inter preta tion for other races and ages must be made by the clini shirley. The MDRD study equat ion has not been valid ated for the evalu ation of serum creat inine relat ed to nutri lisa l statu s or medic ation usage . For perso ns <18 years of age, a pedia tric GFR calcu lator is avail able on the [facility] websi te: https ://shakira w.zuly dubon.o rg/pr ofess ional s/kdo qi/gf r_cal culat or Not Available [facility] (Lab) [address] [place], [address], 03/24/2023 10:18:28 03/24/20 23 03/24/2023 COMPR EHENS SHWETHA METAB OLIC PANEL alkaline phosphatase 69 U/L 38-126 Not Available [facility] (Lab) [address] [place], [address], 03/24/2023 10:18:28 03/24/20 23 03/24/2023 COMPR EHENS SHWETHA METAB OLIC PANEL alanine aminotransfe rase 18 U/L 0-35 Not Available [facility] (Lab) [address] [place], [address], 03/24/2023 10:18:28 03/24/20 23 03/24/2023 COMPR EHENS SHWETHA METAB OLIC PANEL aspartate aminotransfe rase 30 U/L 15-37 Not Available [facility] (Lab) [address] [place], [address], 03/24/2023 10:18:28 03/24/20 23 03/24/2023 COMPR EHENS SHWETHA METAB OLIC PANEL bilirubin, total 1.80 mg/dL 0.20-1 .30 high Not Available [facility] (Lab) [address] [place], [address], 03/24/2023 10:18:28 03/24/20 23 03/24/2023 COMPR EHENS SHWETHA METAB OLIC PANEL calcium 8.1 mg/dL 8.4-10 .2 low Not Available [facility] (Lab) [address] [place], [address], 03/24/2023 10:18:28 03/24/20 23 03/24/2023 COMPR EHENS SHWETHA METAB OLIC PANEL total protein 7.7 g/dL 6.3-8. 2 Not Available [facility] (Lab) [address] [place], [address], 03/24/2023 10:18:28 03/24/20 23 03/24/2023 COMPR EHENS SHWETHA METAB OLIC PANEL albumin 4.4 g/dL 3.4-5. 0 Not Available [facility] (Lab) [address] [place], [address], 03/24/2023 10:18:28 03/24/20 23 03/24/2023 COMPR EHENS SHWETHA METAB OLIC PANEL globulin 3.3 g/dL 2.6-4. 2 Not Available [facility] (Lab) [address] [place], [address], 03/24/2023 10:18:28 03/24/20 23 03/24/2023 COMPR EHENS SHWETHA METAB OLIC PANEL A/G ratio 1.3 ratio 1.0-2. 0 Not Available [facility] (Lab) [address] [place], [address], 03/24/2023 10:18:28 03/24/20 23 03/24/2023 TSH W/REF KATHERINE FT4 TSH with reflex free T4 3.760 uIU/m L 0.465- 4.680 Not Available [facility] (Lab) [address] [place], [address], 03/24/2023 10:45:20 03/24/20 23 03/24/2023 VITAM IN D 25-HY DROXY [id number] 22.0 NG/mL 30-100 low Vitam in D Statu s: Defic ient: <20 ng/mL Insuf ficie nt: 20-29 ng/mL Suffi cient : 30-10 0 ng/mL Not Available [facility] (Lab) [address] [place], [place], [address], 03/24/2023 13:32:31 03/24/20 23 03/24/2023 VITAM IN B12 (KAYLEE IVETTE ) vb12 >1000 pg/mL 239-93 1 high Not Available [facility] (Lab) [address] [place], [address], 03/24/2023 14:21:40 03/24/20 23 03/24/2023 FOLAT E, SERUM /PLAS MA folate 6.20 NG/mL 2.76-2 0.0 Not Available [facility] (Lab) [address] [place], [address], 03/24/2023 14:21:46 04/13/20 23 04/13/2023 CBC/C OMPLE TE BLD COUNT W/DIF F white blood cells 3.8 x10'3 /uL 4.2-10 .8 low Not Available [facility] (Lab) [address] [place], [address], 04/13/2023 14:23:35 04/13/20 23 04/13/2023 CBC/C OMPLE TE BLD COUNT W/DIF F red blood cells 4.62 x10'6 /uL 3.80-5 .20 Not Available [facility] (Lab) [address] [place], [address], 04/13/2023 14:23:35 04/13/20 23 04/13/2023 CBC/C OMPLE TE BLD COUNT W/DIF F hemoglobin 13.2 g/dL 12.0-1 5.6 Not Available [facility] (Lab) [address] [place], [address], 04/13/2023 14:23:35 04/13/20 23 04/13/2023 CBC/C OMPLE TE BLD COUNT W/DIF F hematocrit 40.6 % 35.7-4 5.7 Not Available [facility] (Lab) [address] [place], [address], 04/13/2023 14:23:35 04/13/20 23 04/13/2023 CBC/C OMPLE TE BLD COUNT W/DIF F mean red cell volume 87.9 fL 82.0-9 9.0 Not Available [facility] (Lab) [address] [place], [address], 04/13/2023 14:23:35 04/13/20 23 04/13/2023 CBC/C OMPLE TE BLD COUNT W/DIF F mean red cell hemoglobin 28.6 pg 27.0-3 3.0 Not Available [facility] (Lab) [address] [place], [address], 04/13/2023 14:23:35 04/13/20 23 04/13/2023 CBC/C OMPLE TE BLD COUNT W/DIF F mean RBC HGB concentratio n 32.5 g/dL 31.0-3 6.0 Not Available [facility] (Lab) [address] [place], [address], 04/13/2023 14:23:35 04/13/20 23 04/13/2023 CBC/C OMPLE TE BLD COUNT W/DIF F red cell distribution width 13.8 % 11.8-1 5.5 Not Available [facility] (Lab) [address] [place], [address], 04/13/2023 14:23:35 04/13/20 23 04/13/2023 CBC/C OMPLE TE BLD COUNT W/DIF F platelets 165 x10'3 /uL 150-40 0 Not Available [facility] (Lab) [address] [place], [address], 04/13/2023 14:23:35 04/13/20 23 04/13/2023 CBC/C OMPLE TE BLD COUNT W/DIF F mean platelet volume 9.2 fL 9.0-12 .4 Not Available [facility] (Lab) [address] [place], [address], 04/13/2023 14:23:35 04/13/20 23 04/13/2023 CBC/C OMPLE TE BLD COUNT W/DIF F neutrophils 52.3 % 39.0-7 2.0 Not Available [facility] (Lab) [address] [place], [address], 04/13/2023 14:23:35 04/13/20 23 04/13/2023 CBC/C OMPLE TE BLD COUNT W/DIF F lymphocytes 36.5 % 16.0-4 7.0 Not Available [facility] (Lab) [address] [place], [address], 04/13/2023 14:23:35 04/13/20 23 04/13/2023 CBC/C OMPLE TE BLD COUNT W/DIF F monocytes 6.1 % 5.0-12 .0 Not Available [facility] (Lab) [address] [place], [address], 04/13/2023 14:23:35 04/13/20 23 04/13/2023 CBC/C OMPLE TE BLD COUNT W/DIF F eosinophils 4.0 % 1.0-7. 0 Not Available [facility] (Lab) [address] [place], [address], 04/13/2023 14:23:35 04/13/20 23 04/13/2023 CBC/C OMPLE TE BLD COUNT W/DIF F basophils 0.8 % 0.0-2. 0 Not Available [facility] (Lab) [address] [place], [address], 04/13/2023 14:23:35 04/13/20 23 04/13/2023 CBC/C OMPLE TE BLD COUNT W/DIF F immature granulocytes 0.3 % 0.00-0 .50 Not Available [facility] (Lab) [address] [place], [address], 04/13/2023 14:23:35 04/13/20 23 04/13/2023 CBC/C OMPLE TE BLD COUNT W/DIF F neutrophils, absolute count 1.96 x10'3 /uL 1.5-8. 0 Not Available [facility] (Lab) [address] [place], [address], 04/13/2023 14:23:35 04/13/20 23 04/13/2023 CBC/C OMPLE TE BLD COUNT W/DIF F lymphocytes, absolute count 1.37 x10'3 /uL 1.07-3 .43 Not Available [facility] (Lab) [address] [place], [address], 04/13/2023 14:23:35 04/13/20 23 04/13/2023 CBC/C OMPLE TE BLD COUNT W/DIF F monocytes, absolute count 0.23 x10'3 /uL 0.29-0 .99 low Not Available [facility] (Lab) [address] [place], [address], 04/13/2023 14:23:35 04/13/20 23 04/13/2023 CBC/C OMPLE TE BLD COUNT W/DIF F eosinophils, absolute count 0.15 x10'3 /uL 0.02-0 .53 Not Available [facility] (Lab) [address] [place], [address], 04/13/2023 14:23:35 04/13/20 23 04/13/2023 CBC/C OMPLE TE BLD COUNT W/DIF F basophils, absolute count 0.03 x10'3 /uL 0.01-0 .08 Not Available [facility] (Lab) [address] [place], [address], 04/13/2023 14:23:35 04/13/20 23 04/13/2023 CBC/C OMPLE TE BLD COUNT W/DIF F immature granulocytes ,absolute 0.01 x10'3 /uL 0.00-0 .05 Not Available [facility] (Lab) [address] [place], [address], 04/13/2023 14:23:35 04/13/20 23 04/13/2023 CBC/C OMPLE TE BLD COUNT W/DIF F nucleated red blood cells 0.0 % -0 Not Available [facility] (Lab) [address] [place], [address], 04/13/2023 14:23:35 04/13/20 23 04/13/2023 CBC/C OMPLE TE BLD COUNT W/DIF F NRBC# 0.00 x10'3 /uL Not Available [facility] (Lab) [address] [place], [address], 04/13/2023 14:23:35 04/13/20 23 04/13/2023 LIPID PANEL cholesterol 218 mg/dL 140-19 9 high NIH POLLY NSUS RECOM MENDA TION FOR KHUSHBU STERO L: ADULT CHILD LOW RISK: <200 <170 BORDE RLINE : <200- 239 ----- HIGH RISK: >240 >200 Not Available [facility] (Lab) [address] [place], [address], 04/13/2023 14:39:55 04/13/2004/13/2023 LIPID PANEL triglyceride s 140 mg/dL 0-150 NIH POLLY NSUS REPOR T RECOM MENDA TION FOR TRIGL YCERI YOLANDA: ADULT CHILD LOW RISK: <150 ----- BODER LINE: 150-1 99 ----- HIGH RISK: >200 ----- Not Available [facility] (Lab) [address] [place], [address], 04/13/2023 14:39:55 04/13/20 23 04/13/2023 LIPID PANEL HDL cholesterol 55 mg/dL 40- Not Available [facility] (Lab) [address] [place], [address], 04/13/2023 14:39:55 04/13/20 23 04/13/2023 LIPID PANEL LDL cholesterol, calculated 135 mg/dL 0-130 high NIH POLLY NSUS REPOR T RECOM MENDA TIONS FOR LDL: ADULT CHILD LOW RISK <130 <110 (OPTI MAL LDL) <100 ----- BORDE RLINE : 130-1 59 ----- HIGH RISK: >160 >130 A TRIGL YCERI DE RESUL T >400 INVAL IDATE S THE CALCU LATIO N FOR LDL FRACT IONAT ION - THE LDL RESUL T WILL NOT BE REPOR CINDY. Not Available [facility] (Lab) [address] [place], [address], 04/13/2023 14:39:55 04/13/20 23 04/13/2023 COMPR EHENS SHWETHA METAB OLIC PANEL sodium 140 mmol/ L 137-14 5 Not Available [facility] (Lab) [address] [place], [address], 04/13/2023 14:40:00 04/13/20 23 04/13/2023 COMPR EHENS SHWETHA METAB OLIC PANEL potassium 4.2 mmol/ L 3.5-5. 1 Not Available [facility] (Lab) [address] [place], [address], 04/13/2023 14:40:00 04/13/20 23 04/13/2023 COMPR EHENS SHWETHA METAB OLIC PANEL chloride 106 mmol/ L 98-107 Not Available [facility] (Lab) [address] [place], [address], 04/13/2023 14:40:00 04/13/20 23 04/13/2023 COMPR EHENS SHWETHA METAB OLIC PANEL carbon dioxide 23 mmol/ L 22-30 Not Available [facility] (Lab) [address] [place], [address], 04/13/2023 14:40:00 04/13/20 23 04/13/2023 COMPR EHENS SHWETHA METAB OLIC PANEL anion gap 15.2 mmol/ L 14-22 Not Available [facility] (Lab) [address] [place], [address], 04/13/2023 14:40:00 04/13/20 23 04/13/2023 COMPR EHENS SHWETHA METAB OLIC PANEL glucose 108 mg/dL 70-99 high Not Available [facility] (Lab) [address] [place], [address], 04/13/2023 14:40:00 04/13/20 23 04/13/2023 COMPR EHENS SHWETHA METAB OLIC PANEL BUN 13 mg/dL 8-19 Not Available [facility] (Lab) [address] [place], [address], 04/13/2023 14:40:00 04/13/20 23 04/13/2023 COMPR EHENS SHWETHA METAB OLIC PANEL creatinine 0.84 mg/dL 0.66-1 .25 Not Available [facility] (Lab) [address] [place], [address], 04/13/2023 14:40:00 04/13/20 23 04/13/2023 COMPR EHENS SHWETHA METAB OLIC PANEL GFR >60 Refer ence Range : [place] ge GFR Healt hy Adult : >60 mL/mi n/1.7 3 m2 Chron ic Kidne y Disea se: 15-60 mL/mi n/1.7 3 m2 Kidne y Failu re: <15/m L/min /1.73 m2 www.n iddk. nih.g ov The MDRD study equat ion has not been valid ated in child ronald <18 years of age; pregn ant women ; the elder ly >85 years of age; or in some racia l or ethni c subgr oups, such as Hispa nics. Outsi de the valid ated myron eters , estim ated GFR is less accur ate, requi ring clini milagros judgm ent on a case- by-ca se basis . Clini milagros inter preta tion for other races and ages must be made by the clini shirley. The MDRD study equat ion has not been valid ated for the evalu ation of serum creat inine relat ed to nutri lisa l statu s or medic ation usage . For perso ns <18 years of age, a pedia tric GFR calcu lator is avail able on the [facility] websi te: https ://shakira w.kid jagdish.o rg/pr ofess ional s/kdo qi/gf r_cal culat or Not Available [facility] (Lab) [address] [place], [address], 04/13/2023 14:40:00 04/13/20 23 04/13/2023 COMPR EHENS SHWETHA METAB OLIC PANEL alkaline phosphatase 67 U/L 38-126 Not Available [facility] (Lab) [address] [place], [address], 04/13/2023 14:40:00 04/13/20 23 04/13/2023 COMPR EHENS SHWETHA METAB OLIC PANEL alanine aminotransfe rase 18 U/L 0-35 Not Available [facility] (Lab) [address] [place], [address], 04/13/2023 14:40:00 04/13/20 23 04/13/2023 COMPR EHENS SHWETHA METAB OLIC PANEL aspartate aminotransfe rase 31 U/L 15-37 Not Available [facility] (Lab) [address] [place], [address], 04/13/2023 14:40:00 04/13/20 23 04/13/2023 COMPR EHENS SHWETHA METAB OLIC PANEL bilirubin, total 1.00 mg/dL 0.20-1 .30 Not Available [facility] (Lab) [address] [place], [address], 04/13/2023 14:40:00 04/13/20 23 04/13/2023 COMPR EHENS SHWETHA METAB OLIC PANEL calcium 7.7 mg/dL 8.4-10 .2 low Not Available [facility] (Lab) [address] [place], [address], 04/13/2023 14:40:00 04/13/20 23 04/13/2023 COMPR EHENS SHWETHA METAB OLIC PANEL total protein 7.3 g/dL 6.3-8. 2 Not Available [facility] (Lab) [address] [place], [address], 04/13/2023 14:40:00 04/13/20 23 04/13/2023 COMPR EHENS SHWETHA METAB OLIC PANEL albumin 4.3 g/dL 3.4-5. 0 Not Available [facility] (Lab) [address] [place], [address], 04/13/2023 14:40:00 04/13/20 23 04/13/2023 COMPR EHENS SHWETHA METAB OLIC PANEL globulin 3.0 g/dL 2.6-4. 2 Not Available [facility] (Lab) [address] [place], [address], 04/13/2023 14:40:00 04/13/20 23 04/13/2023 COMPR EHENS SHWETHA METAB OLIC PANEL A/G ratio 1.4 ratio 1.0-2. 0 Not Available [facility] (Lab) [address] [place], [address], 04/13/2023 14:40:00 04/13/20 23 04/13/2023 VITAM IN D 25-HY DROXY [id number] 28.0 NG/mL 30-100 low Vitam in D Statu s: Defic ient: <20 ng/mL Insuf ficie nt: 20-29 ng/mL Suffi cient : 30-10 0 ng/mL Not Available [facility] (Lab) [address] [place], [address], 04/13/2023 15:03:26 04/13/20 23 04/13/2023 TSH W/REF KATHERINE FT4 TSH with reflex free T4 3.300 uIU/m L 0.465- 4.680 Not Available [facility] (Lab) [address] [place], [address], 04/13/2023 15:11:59 04/13/20 23 04/13/2023 VITAM IN B12 (KAYLEE IVETTE ) vb12 989 pg/mL 239-93 1 high Not Available [facility] (Lab) [address] [place], [address], 04/13/2023 15:51:33 04/13/20 23 04/13/2023 FOLAT E, SERUM /PLAS MA folate 7.18 NG/mL 2.76-2 0.0 Not Available [facility] (Lab) [address] [place], [address], 04/13/2023 15:51:40 08/24/20 23 08/24/2023 CBC/C OMPLE TE BLD COUNT W/DIF F white blood cells 3.7 x10'3 /uL 4.2-10 .8 low Not Available [facility] (Lab) [address] [place], [address], 08/24/2023 19:03:56 08/24/20 23 08/24/2023 CBC/C OMPLE TE BLD COUNT W/DIF F red blood cells 4.56 x10'6 /uL 3.80-5 .20 Not Available [facility] (Lab) [address] [place], [address], 08/24/2023 19:03:56 08/24/20 23 08/24/2023 CBC/C OMPLE TE BLD COUNT W/DIF F hemoglobin 13.8 g/dL 12.0-1 5.6 Not Available [facility] (Lab) [address] [facility], [address], 08/24/2023 19:03:56 08/24/20 23 08/24/2023 CBC/C OMPLE TE BLD COUNT W/DIF F hematocrit 41.0 % 35.7-4 5.7 Not Available [facility] (Lab) [address] [place], [address], 08/24/2023 19:03:56 08/24/20 23 08/24/2023 CBC/C OMPLE TE BLD COUNT W/DIF F mean red cell volume 89.9 fL 82.0-9 9.0 Not Available [facility] (Lab) [address] [place], [address], 08/24/2023 19:03:56 08/24/20 23 08/24/2023 CBC/C OMPLE TE BLD COUNT W/DIF F mean red cell hemoglobin 30.3 pg 27.0-3 3.0 Not Available [facility] (Lab) [address] [place], [address], 08/24/2023 19:03:56 08/24/20 23 08/24/2023 CBC/C OMPLE TE BLD COUNT W/DIF F mean RBC HGB concentratio n 33.7 g/dL 31.0-3 6.0 Not Available [facility] (Lab) [address] [place], [address], 08/24/2023 19:03:56 08/24/20 23 08/24/2023 CBC/C OMPLE TE BLD COUNT W/DIF F red cell distribution width 13.3 % 11.8-1 5.5 Not Available [facility] (Lab) [address] [place], [address], 08/24/2023 19:03:56 08/24/20 23 08/24/2023 CBC/C OMPLE TE BLD COUNT W/DIF F platelets 173 x10'3 /uL 150-40 0 Not Available [facility] (Lab) [address] [place], [address], 08/24/2023 19:03:56 08/24/2008/24/2023 CBC/C OMPLE TE BLD COUNT W/DIF F mean platelet volume 9.7 fL 9.0-12 .4 Not Available [facility] (Lab) [address] [place], [address], 08/24/2023 19:03:56 08/24/2008/24/2023 CBC/C OMPLE TE BLD COUNT W/DIF F neutrophils 55.8 % 39.0-7 2.0 Not Available [facility] (Lab) [address] [place], [address], 08/24/2023 19:03:56 08/24/2008/24/2023 CBC/C OMPLE TE BLD COUNT W/DIF F lymphocytes 33.9 % 16.0-4 7.0 Not Available [facility] (Lab) [address] [place], [address], 08/24/2023 19:03:56 08/24/2008/24/2023 CBC/C OMPLE TE BLD COUNT W/DIF F monocytes 6.5 % 5.0-12 .0 Not Available [facility] (Lab) [address] [place], [address], 08/24/2023 19:03:56 08/24/2008/24/2023 CBC/C OMPLE TE BLD COUNT W/DIF F eosinophils 3.0 % 1.0-7. 0 Not Available [facility] (Lab) [address] [place], [address], 08/24/2023 19:03:56 08/24/20 23 08/24/2023 CBC/C OMPLE TE BLD COUNT W/DIF F basophils 0.5 % 0.0-2. 0 Not Available [facility] (Lab) [address] [place], [address], 08/24/2023 19:03:56 08/24/2008/24/2023 CBC/C OMPLE TE BLD COUNT W/DIF F immature granulocytes 0.3 % 0.00-0 .50 Not Available [facility] (Lab) [address] [place], [address], 08/24/2023 19:03:56 08/24/2008/24/2023 CBC/C OMPLE TE BLD COUNT W/DIF F neutrophils, absolute count 2.08 x10'3 /uL 1.5-8. 0 Not Available [facility] (Lab) [address] [place], [address], 08/24/2023 19:03:56 08/24/20 23 08/24/2023 CBC/C OMPLE TE BLD COUNT W/DIF F lymphocytes, absolute count 1.26 x10'3 /uL 1.07-3 .43 Not Available [facility] (Lab) [address] [place], [address], 08/24/2023 19:03:56 08/24/20 23 08/24/2023 CBC/C OMPLE TE BLD COUNT W/DIF F monocytes, absolute count 0.24 x10'3 /uL 0.29-0 .99 low Not Available [facility] (Lab) [address] [place], [address], 08/24/2023 19:03:56 08/24/20 23 08/24/2023 CBC/C OMPLE TE BLD COUNT W/DIF F eosinophils, absolute count 0.11 x10'3 /uL 0.02-0 .53 Not Available [facility] (Lab) [address] [place], [address], 08/24/2023 19:03:56 08/24/20 23 08/24/2023 CBC/C OMPLE TE BLD COUNT W/DIF F basophils, absolute count 0.02 x10'3 /uL 0.01-0 .08 Not Available [facility] (Lab) [address] [place], [address], 08/24/2023 19:03:56 08/24/20 23 08/24/2023 CBC/C OMPLE TE BLD COUNT W/DIF F immature granulocytes ,absolute 0.01 x10'3 /uL 0.00-0 .05 Not Available [facility] (Lab) [address] [place], [address], 08/24/2023 19:03:56 08/24/20 23 08/24/2023 CBC/C OMPLE TE BLD COUNT W/DIF F nucleated red blood cells 0.0 % -0 Not Available [facility] (Lab) [address] [place], [address], 08/24/2023 19:03:56 08/24/20 23 08/24/2023 CBC/C OMPLE TE BLD COUNT W/DIF F NRBC# 0.00 x10'3 /uL Not Available [facility] (Lab) [address] [place], [address], 08/24/2023 19:03:56 08/24/20 23 08/24/2023 CBC/C OMPLE TE BLD COUNT W/DIF F plt clum OCCASI ONAL Not Available [facility] (Lab) [address] [place], [address], 08/24/2023 19:03:56 08/24/20 23 08/24/2023 LIPID PANEL cholesterol 248 mg/dL 140-19 9 high NIH POLLY NSUS RECOM MENDA TION FOR KHUSHBU STERO L: ADULT CHILD LOW RISK: <200 <170 BORDE RLINE : <200- 239 ----- HIGH RISK: >240 >200 Not Available [facility] (Lab) [address] [place], [address], 08/24/2023 18:23:10 08/24/20 23 08/24/2023 LIPID PANEL triglyceride s 121 mg/dL 0-150 NIH POLLY NSUS REPOR T RECOM MENDA TION FOR TRIGL YCERI YOLANDA: ADULT CHILD LOW RISK: <150 ----- BODER LINE: 150-1 99 ----- HIGH RISK: >200 ----- Not Available [facility] (Lab) [address] [place], [address], 08/24/2023 18:23:10 08/24/20 23 08/24/2023 LIPID PANEL HDL cholesterol 49 mg/dL 40- Not Available [facility] (Lab) [address] [place], [address], 08/24/2023 18:23:10 08/24/20 23 08/24/2023 LIPID PANEL LDL cholesterol, calculated 175 mg/dL 0-130 high NIH POLLY NSUS REPOR T RECOM MENDA TIONS FOR LDL: ADULT CHILD LOW RISK <130 <110 (OPTI MAL LDL) <100 ----- BORDE RLINE : 130-1 59 ----- HIGH RISK: >160 >130 A TRIGL YCERI DE RESUL T >400 INVAL IDATE S THE CALCU LATIO N FOR LDL FRACT IONAT ION - THE LDL RESUL T WILL NOT BE REPOR CINDY. Not Available [facility] (Lab) [address] [place], [address], 08/24/2023 18:23:10 08/24/20 23 08/24/2023 COMPR EHENS SHWETHA METAB OLIC PANEL sodium 138 mmol/ L 137-14 5 Not Available [facility] (Lab) [address] [place], [address], 08/24/2023 18:23:20 08/24/20 23 08/24/2023 COMPR EHENS SHWETHA METAB OLIC PANEL potassium 4.7 mmol/ L 3.5-5. 1 Not Available [facility] (Lab) [address] [place], [address], 08/24/2023 18:23:20 08/24/20 23 08/24/2023 COMPR EHENS SHWETHA METAB OLIC PANEL chloride 104 mmol/ L 98-107 Not Available [facility] (Lab) [address] [place], [address], 08/24/2023 18:23:20 08/24/20 23 08/24/2023 COMPR EHENS SHWETHA METAB OLIC PANEL carbon dioxide 28 mmol/ L 22-30 Not Available [facility] (Lab) [address] [place], [address], 08/24/2023 18:23:20 08/24/20 23 08/24/2023 COMPR EHENS SHWETHA METAB OLIC PANEL anion gap 10.7 mmol/ L 14-22 low Not Available [facility] (Lab) [address] [place], [address], 08/24/2023 18:23:20 08/24/20 23 08/24/2023 COMPR EHENS SHWETHA METAB OLIC PANEL glucose 98 mg/dL 70-99 Not Available [facility] (Lab) [address] [place], [address], 08/24/2023 18:23:20 08/24/20 23 08/24/2023 COMPR EHENS SHWETHA METAB OLIC PANEL BUN 18 mg/dL 8-19 Not Available [facility] (Lab) [address] [place], [address], 08/24/2023 18:23:20 08/24/20 23 08/24/2023 COMPR EHENS SHWETHA METAB OLIC PANEL creatinine 0.98 mg/dL 0.66-1 .25 Not Available [facility] (Lab) [address] [place], [address], 08/24/2023 18:23:20 08/24/20 23 08/24/2023 COMPR EHENS SHWETHA METAB OLIC PANEL GFR 59 Refer ence Range : [place] ge GFR Healt hy Adult : >60 mL/mi n/1.7 3 m2 Chron ic Kidne y Disea se: 15-60 mL/mi n/1.7 3 m2 Kidne y Failu re: <15/m L/min /1.73 m2 www.n iddk. nih.g ov The MDRD study equat ion has not been valid ated in child ronald <18 years of age; pregn ant women ; the elder ly >85 years of age; or in some racia l or ethni c subgr oups, such as Hispa nics. Outsi de the valid ated myron eters , estim ated GFR is less accur ate, requi ring clini milagros judgm ent on a case- by-ca se basis . Clini milagros inter preta tion for other races and ages must be made by the clini shirley. The MDRD study equat ion has not been valid ated for the evalu ation of serum creat inine relat ed to nutri lisa l statu s or medic ation usage . For perso ns <18 years of age, a pedia tric GFR calcu lator is avail able on the [facility] websi te: https :[email or web address] dubon.jade choi/mahesh gunness mikaelal s/kdo qi/gf r_cal culat or Not Available [facility] (Lab) [address] [place], [address], 08/24/2023 18:23:20 08/24/20 23 08/24/2023 COMPR EHENS SHWETHA METAB OLIC PANEL alkaline phosphatase 54 U/L 38-126 Not Available [facility] (Lab) [address] [place], [address], 08/24/2023 18:23:20 08/24/20 23 08/24/2023 COMPR EHENS SHWETHA METAB OLIC PANEL alanine aminotransfe rase 16 U/L 0-35 Not Available [facility] (Lab) [address] [place], [address], 08/24/2023 18:23:20 08/24/20 23 08/24/2023 COMPR EHENS SHWETHA METAB OLIC PANEL aspartate aminotransfe rase 29 U/L 15-37 Not Available [facility] (Lab) [address] [place], [address], 08/24/2023 18:23:20 08/24/20 23 08/24/2023 COMPR EHENS SHWETHA METAB OLIC PANEL bilirubin, total 2.20 mg/dL 0.20-1 .30 high Not Available [facility] (Lab) [address] [place], [address], 08/24/2023 18:23:20 08/24/20 23 08/24/2023 COMPR EHENS SHWETHA METAB OLIC PANEL calcium 9.1 mg/dL 8.4-10 .2 Not Available [facility] (Lab) [address] [place], [address], 08/24/2023 18:23:20 08/24/20 23 08/24/2023 COMPR EHENS SHWETHA METAB OLIC PANEL total protein 7.4 g/dL 6.3-8. 2 Not Available [facility] (Lab) [address] [place], [address], 08/24/2023 18:23:20 08/24/20 23 08/24/2023 COMPR EHENS SHWETHA METAB OLIC PANEL albumin 4.4 g/dL 3.4-5. 0 Not Available [facility] (Lab) [address] [place], [address], 08/24/2023 18:23:20 08/24/20 23 08/24/2023 COMPR EHENS SHWETHA METAB OLIC PANEL globulin 3.0 g/dL 2.6-4. 2 Not Available [facility] (Lab) [address] [place], [address], 08/24/2023 18:23:20 11/08/24/2023 COMPR EHENS SHWETHA METAB OLIC PANEL A/G ratio 1.5 ratio 1.0-2. 0 Not Available [facility] (Lab) [address] [place], [address], 08/24/2023 18:23:20 08/24/20 23 08/24/2023 VITAM IN D 25-HY DROXY [id number] 33.0 NG/mL 30-100 Vitam in D Statu s: Defic ient: <20 ng/mL Insuf ficie nt: 20-29 ng/mL Suffi cient : 30-10 0 ng/mL Not Available [facility] - [facility] (Lab) [address] [place], [address], 08/24/2023 18:45:27 08/24/20 23 08/24/2023 T4 FREE free T4 0.95 NG/dL 0.78-2 .19 Not Available [facility] (Lab) [address] [place], [address], 08/24/2023 18:45:37 08/24/20 23 08/24/2023 TSH thyroid-stim ulating hormone 4.620 uIU/m L 0.465- 4.680 Not Available [facility] (Lab) [address] [place], [address], 08/24/2023 18:58:04 09/14/20 23 09/14/2023 CT, head, w/wo contr ast [facility] [address] [place] [address] Patien t Name: HERMILA WALL Access ion #: [id number] Sex: F : 1969 6 Dictat ed By: Awais Sands Attend ing Physic bg: ALYSA KINCAID Orderi Physic bg: ALYSA KINCAID Exam Date: 2022 07:54 AM Exam Name: CT HEAD WO Admitt ing Diagno sis(es ): CT HEAD WO INDICA TION: : 53 years old Female prior trauma with pain. EXAM DATE: 023 7:54 AM NON DESTRUCTIVE EVALUATION TECHNICIAN COMPAR MILAGRO: None RADIAT ION DOSE: CTDIvo l: 47 mGy, DLP: 1018 mGy*cm PROCED URE: CT scans of the head were obtain ed from the vertex to the skull base. Sagitt al and das l recons tructi ons were provid ed. All CT scans at this medica l facili ty are perfor med using dose modula tion techni ques as approp riate to a perfor med exam includ ing the follow ing: Automa cindy exposu re contro l was utiliz ed; adjust ment of the MA and/or KV accord ing to patien t size; and use of iterat shwetha recons tructi on techni que. FINDIN GS: The brain shows normal morpho logy and segundo-w rajesh matter differ entiat ion, withou t intrac ranial hemorr rafa, extra- axial fluid collec tion, mass effect or acute large vessel infarc t. The ventri cles are normal in size. The basal cister ns are patent . The skull and visibl e facial bones are intact . The parana dileep sinuse s, mastoi d air cells and middle ear caviti es are well-a erated . The soft tissue s of the scalp are unrema rkable . IMPRES GARTH: No acute intrac ranial abnorm ality. Electr onical ly Signed by: Awais Sands at 2022 13:43: 36 PM Page 1 [email or web address] [facility] (Imaging) [address] [place], [address], 09/16/2023 15:50:50 09/14/20 23 09/14/2023 CT, head, w/o contr ast No observ ation record ed. [email or web address] [facility] [address] [place], [address], 09/16/2023 15:50:50 09/14/20 23 09/14/2023 CT, maxil lofac ial, w/o contr ast [facility] [address] [place] [address] Patien t Name: HERMILA WALL Access ion #: [id number] Sex: F : 1969 6 Dictat ed By: Awais Sands Attend ing Physic bg: ALYSA KINCAID Orderi ng Physic bg: ALYSA KINCAID Exam Date: 2022 07:54 AM Exam Name: CT MAXILL OFACIA L WO Admitt ing Diagno sis(es ): CT MAXILL OFACIA L WO INDICA TION: : 53 years old Female with trauma and face pain. EXAM DATE: 023 7:54 AM NON DESTRUCTIVE EVALUATION TECHNICIAN COMPAR MILAGRO: None RADIAT ION DOSE: CTDIvo l: 20 mGy, DLP: 418 mGy*cm PROCED URE: Using the CT scanne r, contig uous noncon trast scans were obtain ed from above the orbita l rims to below the mandib le. Das l and sagitt al reform atted images were then genera cindy. All CT scans at this [facility] facili ty are perfor med using dose modula tion techni ques as approp riate to a perfor med exam includ ing the follow ing: Automa cindy exposu re contro l was utiliz ed; adjust ment of the MA and/or KV accord ing to patien t size; and use of iterat shwetha recons tructi on techni que. FINDIN GS: The facial bones, includ ing the orbits and parana dileep sinuse s are intact withou t eviden ce of fractu re. The parana dileep sinuse s, mastoi d air cells and middle ear caviti es are normal ly aerate d. The orbita l conten ts are normal . The soft tissue s of the face are unrema rkable . IMPRES GARTH: No acute abnorm al CT findin gs of the maxill ofacia l region . Electr onical ly Signed by: Awais Sands at 2022 13:51: 37 PM Page 1 [email or web address] [facility] (Imaging) [address] [place], [address], 09/16/2023 15:50:51 09/14/20 23 09/14/2023 CT, head, w/o contr ast No observ ation record ed. [email or web address] [facility] [address] [facility], [place], [address], 09/16/2023 15:50:51 11/14/19 24 11/14/2023 XR, chest , 2 view No observ ation record ed. [email or web address], [place], [address], 04/23/2024 17:49:52 11/15/19 24 11/15/2023 CT, head, w/o contr ast No observ ation record ed. [email or web address], [place], [address], 01/24/2025 17:03:58 11/15/19 24 11/15/2023 CT, angio gram, chest , w/ contr ast No observ ation record ed. [email or web address], [place], [address], 04/23/2024 17:50:17 11/15/19 24 11/15/2023 US, doppl er, venou s No observ ation record ed. [address], [place], [address], 04/23/2024 17:53:45 11/15/19 24 11/15/2023 US, doppl er, venou s No observ ation record ed. 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 Fractu re probab ility calcul ated for an untrea cindy patien t. Fractu re probab ility may be lower if the patien t has receiv ed treatm ent. T-scor e: compar milagro by birdie restrepo deviat ion (SD) to a young adult popula tion, matche d for sex and ethnic ity (used for postme nopkody al women and men >50 years) and classi fied by WHO criter ia. -1.0: normal <-1.0 to >-2.5: osteop enia -2.5: osteop orosis -2.5 plus fragil ity fractu re: severe osteop orosis Page 1 [place] [address] Patien t Name: HERMILA WALL Access ion #: [id number] Sex: F : 1969 0 Dictat ed By: Edmund Roth Attend ing Physic bg: ALYSA Mcmullen NESTORFREDDIE MUNGUIA Orderi Physic bg: NESTORALYSA VAZQUEZ Exam Date: 2023 11:43 AM Exam Name: XR DEXA-H IPS PELVIS SPINE Admitt ing Diagno sis(es ): Z-scor e: compar ed by SD to an age, sex, and ethnic ity popula tion (used for premen opausa l women, men <50 years, and childr en instea d of T-scor e WHO criter ia 4) <-2.0: below expect ed range/ low bone densit y for age, and a cause should be sought Electr onical ly Signed by: Edmund Roth at 2023 15:30: 36 PM Page 2 [email or web address] [facility] (Imaging) [address] [place], [address], 01/24/2025 17:03:59 Result Notes Documentation Provider Name and Address Organization Details Recorded Time Ct, Head, W/wo Contrast : [facility] [address] [place] [address] Patient Name: HERMILA WALL Sex: F : 1970 Dictated By: Awais Sands Attending Physician: ALEXANDREA SMITH Ordering Physician: ALEXANDREA SMITH Exam Date: 09/14/2023 07:54 AM Exam Name: CT HEAD WO Admitting Diagnosis(es): CT HEAD WO INDICATION: : 53 years old Female prior trauma with pain. EXAM DATE: 09/14/2023 7:54 AM NON DESTRUCTIVE EVALUATION TECHNICIAN COMPARISON: None RADIATION DOSE: CTDIvol: 47 mGy, DLP: 1018 mGy*cm PROCEDURE: CT scans of the head were obtained from the vertex to the skull base. Sagittal and coronal reconstructions were provided. All CT scans at this medical facility are performed using dose modulation techniques as appropriate to a performed exam including the following: Automated exposure control was utilized; adjustment of the MA and/or KV according to patient size; and use of iterative reconstruction technique. FINDINGS: The brain shows normal morphology and segundo-white matter differentiation, without intracranial hemorrhage, extra-axial fluid collection, mass effect or acute large vessel infarct. The ventricles are normal in size. The basal cisterns are patent. The skull and visible facial bones are intact. The paranasal sinuses, mastoid air cells and middle ear cavities are well-aerated. The soft tissues of the scalp are unremarkable. IMPRESSION: No acute intracranial abnormality. Page 1 Eleonora crocker [employer] 09/16/2023 15:50:50 Ct, Maxillofacial, W/o Contrast : [address] [address] Patient Name: HERMILA WALL Sex: F : 1970 Dictated By: Awais Sands Attending Physician: ALEXANDREA SMITH Ordering Physician: ALEXANDREA SMITH Exam Date: 09/14/2023 07:54 AM Exam Name: CT MAXILLOFACIAL WO Admitting Diagnosis(es): CT MAXILLOFACIAL WO INDICATION: : 53 years old Female with trauma and face pain. EXAM DATE: 09/14/2023 7:54 AM NON DESTRUCTIVE EVALUATION TECHNICIAN COMPARISON: None RADIATION DOSE: CTDIvol: 20 mGy, DLP: 418 mGy*cm PROCEDURE: Using the CT scanner, contiguous noncontrast scans were obtained from above the orbital rims to below the mandible. Coronal and sagittal reformatted images were then generated. All CT scans at this medical facility are performed using dose modulation techniques as appropriate to a performed exam including the following: Automated exposure control was utilized; adjustment of the MA and/or KV according to patient size; and use of iterative reconstruction technique. FINDINGS: The facial bones, including the orbits and paranasal sinuses are intact without evidence of fracture. The paranasal sinuses, mastoid air cells and middle ear cavities are normally aerated. The orbital contents are normal. The soft tissues of the face are unremarkable. IMPRESSION: No acute abnormal CT findings of the maxillofacial region. Page 1 RAFAELA Benedict [employer] [facility] [employer] [facility] 09/16/2023 15:50:51 Dexa, Axial Skeleton : [facility] [address] [place] [address] Patient Name: HERMILA WALL Sex: F : 1970 Dictated By: Abran Roth Attending Physician: ALEXANDREA SMITH Ordering Physician: ALEXANDREA SMITH Exam Date: 12/16/2023 11:43 AM Exam Name: XR DEXA-HIPS PELVIS SPINE Admitting Diagnosis(es): INDICATION: Postmenopausal osteoporosis DEXA SCAN: BONE DENSITY REPORT: AP SPINE (L2-L3) : T Score: -3.1 LEFT HIP TOTAL : T Score: -2.9 RT HIP TOTAL : T Score: -3.0 TOTAL BILAT HIP AVG: T Score: -2.9 10 YEAR FRACTURE RISK* na IMPRESSION: Osteoporosis bilateral hips and lumbar spine - *FRAX version 3.08. Fracture probability calculated for an untreated patient. Fracture probability may be lower if the patient has received treatment. T-score: comparison by standard deviation (SD) to a young adult population, matched for sex and ethnicity (used for postmenopausal women and men >50 years) and classified by WHO criteria. -1.0: normal <-1.0 to >-2.5: osteopenia -2.5: osteoporosis -2.5 plus fragility fracture: severe osteoporosis Page 1 [facility] [address] [place] [address] Patient Name: HERMILA WALL Sex: F : 1970 Dictated By: Abran Roth Attending Physician: LUIS LECHUGA Ordering Physician: ALEXANDREA SMITH Exam Date: 12/16/2023 11:43 AM Exam Name: XR DEXA-HIPS PELVIS SPINE Admitting Diagnosis(es): Z-score: compared by SD to an age, sex, and ethnicity population (used for premenopausal women, men <50 years, and children instead of T-score WHO criteria 4) <-2.0: below expected range/low bone density for age, and a cause should be sought Page 2 Silvia crocker, [facility] [employer] [facility] 01/24/2025 17:03:59 Problems Name Problem SNOMED Code Status Onset Date Resolution Date Notes Provider Name and Address Organization Details Recorded Time Legal blindness 90640465 Active 2022 MD Mireya [address], [place], [address] , [facility] [employer] [facility] 3 17:21:44 Thrombocy topenic disorder 773779494 Active 2022 MD Mireya [address], [place], [address] , [facility] [email or web address] [facility] 3 17:21:55 Wernicke' s disease 64111738 Active 2022 MD Mireya [address], [place], [address] , [facility] [employer] [facility] 3 17:22:09 Moderate recurrent major depressio n 90904588 Active 2022 MD Mireya [address], [place], [address] , [facility] [employer] [facility] 3 17:22:25 Gastroeso phageal reflux disease without esophagit is 627110627 Active 2022 MD Mireya [address], [place], [address] , [facility] [employer] [facility] 3 17:22:46 Unsteady when walking 82509612 Active 2022 MD Mireya [address], [place], [address] , [facility] [employer] [facility] 3 17:23:07 Persisten t insomnia 682617907 Active 2022 Alexandrea mcmullen MD [address], [facility] [address], [place], [address] , [facility] 3 17:23:32 Fatigue 00737603 Active 2022 Eleonora crocker, [facility] [employer] [employer] [facility] 3 12:31:24 Leukopeni a 91629921 Active 2022 Eleonora crocker, [facility] [employer] [employer] [facility] 3 14:08:48 Difficult y getting in and out of a chair 498269056 Active 2022 Eleonora crocker, [facility] 3 11:32:16 Dyspnea on exertion 04513753 Active 2022 VIRAL Jackson null, [facility] 3 15:40:17 Depressiv e disorder 18706772 Active 2022 Eleonora crocker, [facility] 3 14:59:27 Upper respirato ry infection 73313315 Active 2022 Eleonora crocker, [facility] 3 11:10:29 Backache 707272687 Active 2023 Alexandrea mcmullen MD [address], [facility] [address], [place], [address] , [facility] 4 15:46:18 Chronic back pain 363237840 Active 2023 Alexandrea mcmullen MD [address], [facility] [address], [place], [address] , [facility] 4 15:46:41 Swelling of left upper limb 61947648776 799202 Active 2023 Alexandrea mcmullen MD [address], [address], [place], [address] , [facility] 4 16:03:49 Essential hypertens ion 73513320 Active 2023 Mary Hancock [place] [facility], [facility] 4 11:03:17 Pain in right lower limb 267876788 Active 2024 Alexandrea mcmullen MD [address], [address], [place], [address] , [facility] 5 15:55:55 Acute sinusitis 51906442 Active 2021 Not Available [facility] 3 04:46:50 Mixed anxiety and depressiv e disorder 805585056 Active 2017 Not Available [facility] 3 04:46:50 Chronic constipat ion 238960623 Active 2016 Not Available [facility] 3 04:46:50 Muscle weakness 94642612 Active 2017 Not Available [employer] 3 04:46:50 Abnormal weight loss 600744314 Active 2017 Not Available [facility] 3 04:46:50 Osteopeni a 580581494 Active 2016 Not Available [employer] 3 04:46:50 Vitamin D deficienc y 21284129 Active 2021 Not Available [facility] 3 04:46:50 Malignant neoplasm of female breast 695649421 Active 2016 Recurrent Not Available [facility] 3 04:46:50 Thiamine deficienc y 989527331 Active 2018 Not Available [facility] 3 04:46:50 Hypothyro idism 41333744 Active 2016 s/p thyroidec abimbola Not Available [facility] 3 04:46:50 Serum bilirubin borderlin e high 860859875 Active 2022 Not Available [facility] 3 04:46:50 Anxiety 62818748 Active 2016 Not Available [facility] 3 04:46:50 Cough 26900228 Active 2021 Not Available [facility] 3 04:46:51 Hyperlipi demia 10652388 Active 2021 Not Available [facility] 3 04:46:51 Diarrhea 57018940 Active 2021 Not Available [facility] 3 04:46:51 Osteoporo sis 86030121 Active 2022 Not Available [facility] 3 04:46:51 Otitis media 25348661 Active 2021 Not Available [facility] 3 04:46:51 Liver enzymes level above reference range 085658699 Active 2021 Not Available [facility] 3 04:46:51 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 Procedures Surgical History Date Name Laterality Status Provider Name and Address Organization Details Recorded Time 06/07/20 24 Medicare Wellness CPT Code, subsequent completed ANGELICA Galdamez Иван [employer] 04/24/2024 12:52:14 06/07/20 24 Advanced Care Planning completed ANGELICA Galdamez Иван [employer] [facility] 06/07/2024 18:03:50 09/03/20 20 other completed Not Available [facility] 12/08/2022 04:42:05 09/03/20 20 Cancer Surgery completed Not Available [facility] 12/08/2022 04:42:05 Lumpectomy completed Not Available [facility] 12/08/2022 04:42:05 Unlisted procedure shoulder completed Not Available [facility] 12/08/2022 04:42:05 Hernia Repair completed Not Available [facility] 12/08/2022 04:42:05 thyroidectomy completed Not Available [facility] 12/08/2022 04:42:05 Colostomy completed Not Available [facility] 12/08/2022 04:42:05 laparoscopic cholecystectomy completed Not Available [facility] 12/08/2022 04:42:05 Hysterectomy completed Not Available [facility] 12/08/2022 04:42:05 excision of bilateral breasts completed Not Available [facility] 12/08/2022 04:42:05 excision of skin carcinoma completed JOSE C Flores - Иван [place] [employer] 04/16/2025 15:18:59 Imaging Results None recorded. Procedure Notes None recorded. Medical Equipment None Reported. Allergies Allergen ID Allergen Name Allergen Category Reaction Reaction Severity Criticality Documentation Date Start Date Code Code System Note Provider Name and Address Organization Details Recorded Time 7017 Dilaudid medicatio n dyspnea nausea vomiting Not available severe Not available Not available 12/08/2022 49388 3 RxNorm Not Available [facility] 3 04:53:58 7018 adhesive tape environme nt,medica tion other moderate Not available 12/08/2022 37050 UNK blist ers Not Available [facility] 3 04:53:58 Medications Name Sig Start Date Stop Date Status Note LastModified by Organization Details LastModified Time quetiapine 25 mg tablet TAKE 1 TABLET BY MOUTH TWICE DAILY 11/04 completed Not Available Not Available Not Available atorvastati n 40 mg tablet Take 1 tablet every day by oral route in the evening. 05/01 completed Not Available Not Available Not Available buspirone 5 mg tablet TAKE 1 TABLET BY MOUTH TWICE DAILY 06/07 completed Not Available Not Available Not Available anastrozole 1 mg tablet 1 po qday 01/26 completed Not Available Not Available Not Available atorvastati n 80 mg tablet Take 1 tablet every day by oral route. 06/28 completed Not Available Not Available Not Available venlafaxine 75 mg tablet 1 po qday 12/13 completed Not Available Not Available Not Available citalopram 40 mg tablet 05/09 completed Not Available Not Available Not Available trazodone 50 mg tablet Take 1 tablet every day by oral route as needed for 90 days. 03/08 completed Not Available Not Available Not Available azithromyci n 250 mg tablet 01/26 completed Not Available Not Available Not Available Lidocaine Viscous 2 % mucosal solution 12/13 completed Not Available Not Available Not Available amoxicillin 600 mg-potassiu m clavulanate 42.9 mg/5 mL oral suspension Take 7.5 mL twice a day by oral route for 7 days. 03/08 completed Not Available Not Available Not Available hydrocodone 5 mg-acetamin ophen 325 mg tablet 05/09 completed Not Available Not Available Not Available prochlorper azine maleate 5 mg tablet TAKE 1 TABLET BY MOUTH EVERY 4 HOURS NEEDED 05/09 completed Not Available Not Available Not Available prednisone 20 mg tablet 01/26 completed Not Available Not Available Not Available alendronate 70 mg tablet 01/26 completed Not Available Not Available Not Available clonazepam 0.5 mg tablet once in the am and once at night 01/12 completed Not Available Not Available Not Available fluorouraci l 5 % topical cream 01/22 completed Not Available Not Available Not Available thiamine HCl (vitamin B1) 100 mg tablet Take 1 tablet daily 04/30 completed Not Available Not Available Not Available hydroxyzine pamoate 50 mg capsule 12/24 completed Not Available Not Available Not Available diphenoxyla te-atropine 2.5 mg-0.025 mg tablet 01/26 completed Not Available Not Available Not Available Nexium 40 mg capsule,del ayed release TK 1 C PO QAM BEFORE BREAKFAST 05/09 completed Not Available Not Available Not Available potassium chloride ER 10 mEq tablet,exte nded release 05/09 completed Not Available Not Available Not Available ciprofloxac in 500 mg tablet 12/13 completed Not Available Not Available Not Available hydrocodone 10 mg-acetamin ophen 325 mg tablet TAKE 1 TABLET BY MOUTH EVERY 6 HOURS NEEDED active Not Available Not Available No t Available amitriptyli ne 50 mg tablet TAKE 1 TABLET BY MOUTH EVERY NIGHT AT BEDTIME 12/24 completed Not Available Not Available Not Available ondansetron 8 mg disintegrat ing tablet 05/09 completed Not Available Not Available Not Available potassium chloride 20 mEq/15 mL oral liquid TAKE 15 ML BY MOUTH EVERY DAY FOR 90 DAYS 05/09 completed Not Available Not Available Not Available levothyroxi ne 75 mcg tablet TAKE ONE TABLET BY MOUTH EVERY DAY 01/31 completed Not Available Not Available Not Available amoxicillin 400 mg-denitaoscariu m clavulanate 57 mg/5 mL oral suspension TAKE 10ML BY MOUTH TWICE DAILY FOR 7 DAYS DISCARD REMAINDER 12/12 completed Not Available Not Available Not Available levothyroxi ne 100 mcg tablet 05/09 completed Not Available Not Available Not Available levothyroxi ne 88 mcg tablet TAKE 1 TABLET(88 MCG) BY MOUTH DAILY active Not Available Not Available No t Available alprazolam 0.5 mg tablet 03/08 completed Not Available Not Available Not Available thiamine HCl (vitamin B1) 100 mg/mL injection solution INJECT 100MG IM DAILY FOR 3 DAYS AND THEN START THE TABLETS BY MOUTH 10/23 completed Not Available Not Available Not Available propranolol 40 mg tablet 12/24 completed Not Available Not Available Not Available citalopram 20 mg tablet 1 po qday 01/12 completed Not Available Not Available Not Available lorazepam 0.5 mg tablet TK 1 T PO TID PRN FOR NAUSEA 05/09 completed Not Available Not Available Not Available oxycodone-a cetaminophe n 10 mg-325 mg tablet TK 1 T PO Q 4 H PRN P 01/26 completed Not Available Not Available Not Available dicyclomine 20 mg tablet 1 po q6 hours prn 11/04 completed Not Available Not Available Not Available amoxicillin 250 mg/5 mL oral suspension Take 10 mL 3 times a day by oral route for 7 days. 11/04 completed Not Available Not Available Not Available meclizine 25 mg tablet 05/09 completed Not Available Not Available Not Available levothyroxi ne 50 mcg tablet TAKE 1 TABLET BY MOUTH DAILY ON AN EMPTY STOMACH active Not Available Not Available No t Available hydrocodone 7.5 mg-acetamin ophen 325 mg tablet Pain mgmt 01/22 completed Not Available Not Available Not Available pantoprazol e 40 mg tablet,veronica yed release TAKE 1 TABLET BY MOUTH EVERY DAY active Not Available Not Available No t Available venlafaxine 37.5 mg tablet 05/09 completed Not Available Not Available Not Available mirtazapine 30 mg tablet 05/09 completed Not Available Not Available Not Available levothyroxi ne 125 mcg tablet TK 1 T PO QD 05/09 completed Not Available Not Available Not Available triamcinolo ne acetonide 0.1 % topical ointment 01/22 completed Not Available Not Available Not Available ranitidine 150 mg tablet 05/09 completed Not Available Not Available Not Available buspirone 10 mg tablet 11/04 completed Not Available Not Available Not Available calcium 200 mg (as calcium carbonate 500 mg) chewable tablet LEAD JAVASCRIPT DEVELOPER ONE T BID 05/09 completed Not Available Not Available Not Available sulfamethox azole 200 mg-trimetho prim 40 mg/5 mL oral suspension 12/13 completed Not Available Not Available Not Available gabapentin 300 mg capsule 05/09 completed Not Available Not Available Not Available buspirone 7.5 mg tablet 05/09 completed Not Available Not Available Not Available folic acid 1 mg tablet Take 1 tablet every day by oral route. 01/22 completed Not Available Not Available Not Available hydroxyzine HCl 25 mg tablet 09/14 completed Not Available Not Available Not Available cyanocobala min (vit B-12) 1,000 mcg sublingual tablet 1 po qday 12/24 completed Not Available Not Available Not Available amoxicillin 400 mg/5 mL oral suspension TAKE 6.25 MLS BY MOUTH THREE TIMES DAILY FOR 7 DAYS. DISCARD REMAINDER 06/07 completed Not Available Not Available Not Available mupirocin 2 % topical ointment 01/22 completed Not Available Not Available Not Available alprazolam 2 mg tablet TK 1 T PO TID 05/09 completed Not Available Not Available Not Available mirtazapine 15 mg tablet 1 po qday 12/24 completed Not Available Not Available Not Available gabapentin 100 mg capsule 05/09 completed Not Available Not Available Not Available ergocalcife rol (vitamin D2) 1,250 mcg (50,000 unit) capsule TK 1 T PO WEEKLY 06/28 completed Not Available Not Available Not Available diazepam 10 mg tablet 1 po x 1 30 minute prior to procedure active Not Available Not Available No t Available neomycin 500 mg tablet 01/26 completed Not Available Not Available Not Available morphine 15 mg immediate release tablet 12/24 completed Not Available Not Available Not Available ondansetron 4 mg disintegrat ing tablet 05/09 completed Not Available Not Available Not Available fluticasone propionate 50 mcg/actuati on nasal spray,suspe nsion 12/13 completed Not Available Not Available Not Available sertraline 50 mg tablet 1 po qday 07/10 completed Not Available Not Available Not Available dicyclomine 10 mg capsule Take 1 capsule every day by oral route as needed. active Not Available Not Available No t Available diazepam 5 mg tablet 10/23 completed Not Available Not Available Not Available metoclopram linda 10 mg tablet 05/09 completed Not Available Not Available Not Available amoxicillin 875 mg-potassiu m clavulanate 125 mg tablet Take 1 tablet every 12 hours by oral route. 2022 active Not Available Not Available Not Avai lable Ventolin HFA 90 mcg/actuati on aerosol inhaler 05/09 completed Not Available Not Available Not Available neomycin 3.5 mg/g-polymy shoaib B 10,000 unit/g-dexa meth 0.1 % eye oint 12/13 completed Not Available Not Available Not Available escitalopra m 10 mg tablet TAKE 1 TABLET BY MOUTH EVERY DAY 09/14 completed Not Available Not Available Not Available ezetimibe 10 mg tablet Take 1 tablet every day by oral route. 06/07 completed Not Available Not Available Not Available aripiprazol e 5 mg tablet 05/09 completed Not Available Not Available Not Available rosuvastati n 40 mg tablet TAKE 1 TABLET BY MOUTH EVERY DAY IN THE EVENING 04/14 completed Not Available Not Available Not Available bupropion HCl XL 150 mg 24 hr tablet, extended release 1 po qAM with food active Not Available Not Available No t Available mirtazapine 7.5 mg tablet 09/14 completed Not Available Not Available Not Available duloxetine 30 mg capsule,del ayed release once a day in am 01/12 completed Not Available Not Available Not Available Lyrica 50 mg capsule 05/09 completed Not Available Not Available Not Available cholecalcif geovanni (vitamin D3) 1,250 mcg (50,000 unit) capsule Take 1 capsule every week by oral route for 60 days. 04/16 completed Not Available Not Available Not Available Livalo 2 mg tablet Take 1 tablet every day by oral route. 06/28 completed Not Available Not Available Not Available Prolia 60 mg/mL subcutaneou s syringe Please bring to office to be administe red. INJECT 1 ML BY SUBCUTANE OUS ROUTE 2024 active Not Available Not Available Not Avai lable Multi Vitamin 04/16 completed Not Available Not Available Not Available Embeda 20 mg-0.8 mg capsule, extend release, oral only 05/09 completed Not Available Not Available Not Available Vitamin B12 TK 1T PO QD 06/28 completed Not Available Not Available Not Available naloxone 4 mg/actuatio n nasal spray CALL 911. SPR CONTENTS OF ONE SPRAYER (0.1ML) INTO ONE NOSTRIL. REPEAT IN 2-3 MIN IF SYMPTOMS OF OPIOID EMERGENCY PERSIST, ALTERNATE NOSTRILS active Not Available Not Available No t Available Quick[employer] At-Home COVID-19 Test kit 11/04 completed Not Available Not Available Not Available Vitals Date Recorded Body height Body mass index (BMI) Body weight Body temperature Heart rate Systolic And Diastolic Provider Name and Address Organization Details Last Updated DateTime 4 160.02 cm 25.9 kg/m2 75909.4 9 g 97.6 [degF] 78 /min 122/68 mm[Hg] Nydia Healy Benedict [facility] [email or web address] [facility] 4 15:36:43 Date Recorded Body height Body mass index (BMI) Body weight Body temperature Heart rate Systolic And Diastolic Provider Name and Address Organization Details Last Updated DateTime 3 160.02 cm 24.6 kg/m2 68951.3 4 g 97.5 [degF] 82 /min 114/80 mm[Hg] VIRAL Hamilton [facility] [email or web address] [facility] 3 16:28:46 Date Recorded Body height Body mass index (BMI) Body weight Body temperature Heart rate Oxygen saturation Oxygen saturation in Arterial blood by Pulse oximetry Systolic And Diastolic Provider Name and Address Organization Details Last Updated DateTime 5 160.02 cm 25.5 kg/m2 66086.3 g 97.7 [degF] 103 /min 97 % 97 % 124/78 mm[Hg] Mary Gallagher MA [facility] [email or web address] [facility] 5 15:15:42 Date Recorded Body temperature Heart rate Systolic And Diastolic Provider Name and Address Organization Details Last Updated DateTime 06/07/2024 97.7 [degF] 78 /min 120/68 mm[Hg] VIRAL Jackson [facility] [email or web address] [facility] 06/07/2024 17:39:09 Date Recorded Body height Body mass index (BMI) Body weight Provider Name and Address Organization Details Last Updated DateTime 06/07/2024 160.02 cm 25.5 kg/m2 55042.3 g Noman Gamez LPN [facility] [employer] [facility] 06/07/2024 17:13:45 Date Recorded Body height Body mass index (BMI) Body weight Body temperature Heart rate Oxygen saturation Oxygen saturation in Arterial blood by Pulse oximetry Systolic And Diastolic Provider Name and Address Organization Details Last Updated DateTime 160.02 cm 25 kg/m2 28007.5 2 g 96.7 [degF] 103 /min 98 % 98 % 118/80 mm[Hg] Sandra De Luna MA [facility] [email or web address] [facility] 10:57:37 Social History Question Answer Notes LastModified by Organization Details LastModified Time Tobacco Smoking Status Never Smoker Not Available [employer] 12/08/2022 04:22:10 Do You Have An Advance Directive? No Patient Given Informatio n. [email or web address] Information not available 06/07/2024 Are You Blind Or Do You Have Difficulty Seeing? 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 Yes Information not available 06/07/2024 What Is Your Level Of Caffeine Consumption? Occasional [id number] Information not available 12/08/2022 How Much Tobacco Do You Chew? None MIGRATION.030 [id number] Information not available 12/08/2022 In The 14 Days Before Symptom Onset, Have You Had Close Contact With A Laboratory-confi rmed COVID-19 While That Case Was Ill? No [id number] Information not available 12/08/2022 In The 14 Days Before Symptom Onset, Have You Had Close Contact With A Person Who Is Under Investigation For COVID-19 While That Person Was Ill? No MIGRATION.[id number] Information not available 12/08/2022 Are You Deaf Or Do You Have Serious Difficulty Hearing? No MIGRATION.0301 [id number] Information not available 12/08/2022 What Type Of Diet Are You Following? REGULAR MIGRATION.030 [id number] Information not available 12/08/2022 Which Illicit Or Recreational Drugs Have You Used? None MIGRATION.030 368990 Information not available 12/08/2022 What Is The Highest Grade Or Level Of School You Have Completed Or The Highest Degree You Have Received? [id number] MIGRATION.030 336658 Information not available 12/08/2022 How Many Days Of Moderate To Strenuous Exercise, Like A Brisk Walk, Did You Do In The Last 7 Days? 0 Information not available 06/07/2024 Have There Been Any Changes To Your Family Or Social Situation? No MIGRATION.030 110235 Information not available 12/08/2022 What Is The Fluoride Status Of Your Home? Unknown MIGRATION.030 [id number] Information not available 12/08/2022 Are There Any Guns Present In Your Home? No MIGRATION.0301 [id number] Information not available 12/08/2022 Do You Use Insect Repellent Routinely? No MIGRATION.030 014173 Information not available 12/08/2022 Where Do You Live? SingleLevelHouse MIGRATION.030 [id number] Information not available 12/08/2022 Presence Of Domestic Violence No [email or web address] Information not available 06/07/2024 Guns Present In The Home? No Information not available 06/07/2024 Are You Blind Or Do Yo Have Difficulty Seeing? Yes Poor Vision Both Eyes [email or web address] Information not available 06/07/2024 Are You Deaf Or Do You Have Serious Difficulty Hearing? No [email or web address] Information not available 06/07/2024 General Stress Level? High [email or web address] Information not available 06/07/2024 Live Alone Of With Others? Alone [email or web address] Information not available 06/07/2024 Do You Have A Medical Power Of Physical Therapy Assistant? No MIGRATION.0301 [id number] Information not available 12/08/2022 What Was The Date Of Your Most Recent Tobacco Screening? 04/16/2025 [email or web address] Information not available 04/16/2025 How Many Children Do You Have? 1 [email or web address] Information not available 06/07/2024 Do You Have Any Pets? No MIGRATION.0301 [id number] Information not available 12/08/2022 What Is Your Relationship Status? Information not available 06/07/2024 Do You Use Your Seat Belt Or Car Seat Routinely? Yes [email or web address] Information not available 06/07/2024 Are You Sexually Active? No [email or web address] Information not available 06/07/2024 Do You Have Smoke And Carbon Monoxide Detectors In Your Home? Yes MIGRATION.0301 [id number] Information not available 12/08/2022 Are You Passively Exposed To Smoke? No MIGRATION.0301 194274 Information not available 12/08/2022 Are There Any Smokers In Your House? No MIGRATION.0301 [id number] Information not available 12/08/2022 How Much Tobacco Do You Smoke? No MIGRATION.0301 344263 Information not available 12/08/2022 What Types Of Sporting Activities Do You Participate In? None Information not available 06/07/2024 Do You Use Sunscreen Routinely? No MIGRATION.0301 316594 Information not available 12/08/2022 Has Tobacco Cessation Counseling Been Provided? No N/a MIGRATION.0301 036415 Information not available 12/08/2022 How Many Years Have You Smoked Tobacco? 0 MIGRATION.0301 222343 Information not available 12/08/2022 Have You Recently Traveled Abroad? No MIGRATION.0301 220336 Information not available 12/08/2022 Do You Have Difficulty Walking Or Climbing Stairs? Yes Uses Rollator Walker Outside Home. W/C In The Home [email or web address] Information not available 06/07/2024 Do You Have Any Dietary Restrictions? No MIGRATION.0301 [id number] Information not available 12/08/2022 Sex: Female Functional Status Question Answer Note LastModified by Organizat ion Details LastModified Time Do you use any illicit or recreational drugs? No [email or web address] Information not available 06/07/2024 Do you or have you ever used any other forms of tobacco or nicotine? No MIGRATION.79122 64858 Information not available 12/08/2022 What is your level of alcohol consumption? None MIGRATION.10961 12151 Information not available 12/08/2022 Do you or have you ever used smokeless tobacco? Never used smokeless tobacco MIGRATION.23367 42839 Information not available 12/08/2022 Are you currently employed? No Information not available 06/07/2024 Do you have difficulty doing errands alone? Yes Patient does not drive. 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 No MIGRATION.37706 42033 Information not available 12/08/2022 Do you or have you ever used e-cigarettes or vape? Never used electronic cigarettes MIGRATION.21923 54204 Information not available 12/08/2022 What is your exercise level? None MIGRATION.20817 34441 Information not available 12/08/2022 Mental Status Question Answer Note LastModified by Organizat ion Details LastModified Time Do you feel stressed (tense, restless, nervous, or anxious, or unable to sleep at night)? [id number] MIGRATION.[id number] 26 Information not available 12/08/2022 Do you have difficulty concentrating, remembering or making decisions? No MIGRATION.[id number] 26 Information not available 12/08/2022 Family History Relationship Description Onset Age of this Age Resolved Age Notes LastModified by Organization Details LastModified Time Mother Malignant tumor of breast MIGRATION.238 [id number] Not available 12/08/2022 04:42:09 Father Heart disease MIGRATION.662 [id number] Not available 12/08/2022 04:42:09 Medical History Condition Response BLINDNESS Y NERVE DISEASE Y RHEUMATIC FEVER N BLADDER PROBLEMS N KIDNEY STONES N MRSA N OTHER # 1 N POLIO N LUNG DISEASE/DISORDER N RADIATION / CHEMOTHERAPY Y COPD N Other # 2 N BLOOD DISEASES N SURGERY N EAR OR HEARING PROBLEMS N MUMPS N DEPRESSION (INCLUDING POST ) Y BOWEL PROBLEMS Y STROKE/TIA N ULCERS N BENIGN PROSTATIC HYPERPLASIA N MEASLES N MYOCARDIAL INFARCTION N OBESITY N GERD/NAUSEA Y ANEURYSM N URINARY/BLADDER/KIDNEY PROBLEMS N CORONARY ARTERY DISEASE (CAD) N ADDICTION CONCERNS N ENDOMETRIOSIS N Impotence N USE OF BLOOD THINNERS N SKIN PROBLEMS N GASTROINTESTINAL DISORDER N PERIPHERAL VASCULAR DISEASE N MUSCLE,JOINT OR BONE PROBLEMS N GASTROINTESTINAL BLEEDING N BLOOD CLOTS N ASTHMA N CATARACTS N ERECTILE DYSFUNCTION N VARICOSITIES N GI PROBLEMS N Low Testosterone N INFERTILITY N AIDS/HIV N CHEMOTHERAPY / RADIATION N LIVER DISEASE N MALE HYPOGONADISM N HYPERTENSION N Deficiency Y ANXIETY DISORDER Y BLOOD TRANSFUSION N ANEMIA/BLOOD DISORDER N CHRONIC EAR INFECTIONS N BRONCHITIS N TUBERCULOSIS N GLAUCOMA N FOOT PROBLEM N DIVERTICULITIS N SLEEP APNEA N CHICKENPOX N INFECTIOUS DISEASE N HEART ARRHYTHMIA N PROSTATE N INSOMNIA N HIGH CHOLESTEROL / HYPERLIPIDEMIA Y HYPERTHYROIDISM N EYE PROBLEMS N NEUROLOGICAL PROBLEMS Y EDEMA N CHRONIC PAIN SYNDROME N HYPOTHYROIDISM Y CAROTID BLOCKAGE N CONSTIPATION N BACK / NECK PROBLEMS Y HAVE YOU BEEN HOSPITALIZED OR SEEN IN [facility] ER IN THE PAST YEAR ? N ATHEROSCLEROSIS N BREAST PROBLEMS Y DIALYSIS N ECZEMA N OSTEOPOROSIS Y ARTHRITIS N NO SIGNIFICANT PAST MEDICAL HISTORY N APPENDICITIS N DIABETES, TYPE N BAD TEETH N ENT N HEARTBURN / REFLUX Y AFIB N AUTISM SPECTRUM DISORDER (ASD) N HEPATITIS / LIVER DISEASE N GOUT N SLEEP DISORDER Y ALZHEIMER'S DISEASE N Brain Problems N HERPES N DEMENTIA N HEADACHES/MIGRAINES Y SEIZURES/EPILEPSY N VASCULAR DISEASE N PACEMAKER N Blood Disorder Y DIZZINESS Y HEART DISEASE/HEART PROBLEMS N KIDNEY DISEASE N MULTIPLE SCLEROSIS N CARDIAC ARRHYTHMIA Y CANCER: SPECIFY Y ATRIAL FIBRILLATION N Gall Stones N PULMONARY EMBOLISM N AUTOIMMUNE DISEASE N Gynecological History Statement/Question Response How many live births 2 Date of Last Mammogram Date of Last Colonoscopy Date of LMP Most Recent Bone Density Sexually Active? N Menses Monthly N Date of Last Pap Current Control Method Hysterectom y Obstetrics History GPAL:G 2 P 2 0 0 2 Type Value Multiple Births 0 Full Term 2 Induced 0 Spontaneous 0 Premature 0 Living 2 Ectopics 0 Total 2 Immunizations Vaccine Type Date Status Note Provider Nam e and Address Organization Details Recorded Time Influenza, split virus, trivalent, preservative 0 completed Not Available [facility] 12/08/2022 04:53:50 influenza, unspecified formulation 4 completed Not Available [facility] 12/08/2022 04:53:50 Influenza, split virus, quadrivalent, PF 9 completed Not Available [facility] 12/08/2022 04:53:50 Past Encounters Encounter ID Performer Location Encounter Start Date Encounter Closed Date Diagnosis/Indication Diagnosis SNOMED-CT Code Diagnosis ICD10 Code Diagnosis Note [id number] MD MATTHEW Beth_G Internal Med [facility] [address] [facility] [address] [place] [address] 01/22/2021 00:00:00 01/22/2021 16:12:57 [id number] MD MATTHEW Beth_Giovany Internal Med [facility] [address] [place] [address] [place] [address] 02/18/2021 00:00:00 02/18/2021 15:43:01 [id number] Alexandrea mcmullen MD [facility] Internal Med [facility] [address] [place] [address] [place] [address] 04/30/2021 00:00:00 04/30/2021 16:19:19 [id number] Alexandrea mcmullen MD [facility] Internal Med Maria C fleming [address] [facility] , [facility] [place] [address] 09/14/2021 00:00:00 09/14/2021 16:00:41 [id number] Alexandrea mcmullen MD [facility] Internal Med [facility] [address] [address] 11/04/2022 00:00:00 11/04/2022 12:54:09 [id number] Alexandrea mcmullen MD [facility] Internal Med [facility] [address] [address] 03/08/2023 16:08:05 03/08/2023 17:40:07 Screening - NAD 139881613 Z13.9 C-scope: s/p colostomy for past 5 years, no complaints at this time, sees Dr Del Cid who gives her her colostomy suppliesMa mmogram: S/p zulema mastectomy Not on anastrazol e[facility] : [facility]:08/11/20 21: CBC: WBC 3.2, PLT 138Concern for paraneopla stic syndromeNe eds to do c-scope/EG D GI: Dr Aydin Ching MD: Dr Tyson/Estephania Olson logy: Dr Saez nary: Dr Merrill tology: Dr Sanchez to get PET scanSee hematology for low PLT count Dr Louie ZhifuPAP: Used to see Dr Gingrich, s/p hystrectriley y, WWE, declines any more referrals 11/04/2022 DEXA: Ordered 11/04/2022 UTD on flu shotGet tdap if not doneGet COVID 19 vaccine but does not want to do this 04/30/2021 , 11/04/2022 RTC in 6 monthGet labsER if any symptoms worsenShe and her daughter Nasima did verbalize her understand ing of the above Hyperlipidemia 70710122 E78.5 Not on any medsGet labs Legal blindness 98999818 H54.8 As per her history is not seeing Dr Chan the eye MD at this time Thrombocyt openic disorder 065167483 D69.[address] Rogers, has seen himOV 09/14/2021 :As per her history will see Dr Lin next apt in 12/2020OV 11/04/2022 :Get labsNeeds to see Dr Louie Vides Screening for cardiovascular system disease 823898219 Z13.6 S/p US carotid 04/04/2020 US ECHO 04/04/2020 : EF 60% hyperdynam ic LV fx Get another apt with Dr Osborne Wernicke's disease 68653 002 E51.2 12/27/2019 :D/w Dr Cavanaugh the neurologis t at [facility] yesterday in the evening, he reviewed her chart and has declined to see Myles per him thiamine levels should be checked and replenishe d, he also stated that this was an irreversib le condition, and the speech and the vision impediment s are now permanent0 12/31/2019: Dr Peters, she went to see him to see if the hernia surgery could have caused her sympotms but he could not see how a mesh could cause her [id number]: Dr Pearson: Now referred to a movement clinicOV 01/22/2021 :Keep apt with Dr Pearson, is to see a MD for movement clinic in 03/04/2021 OV 02/18/2021 :Sees the MD in the movement clinic now on 03/04/2021 OV 04/30/2021 :Did see Dr Pearson and did see a MD in the movement clinic and was told that 'nothing could be done'Was told to have 24 hour careOV 09/14/2021 :No change in symptoms at this timeOV 11/04/2022 :Wants to get a walker, no symptoms change at this time Thiamine deficiency 3993 95072 E51.9 OV 12/25/2019 :Not on any medication sNoted to have visual issuesSe[facility] eye 10/25/18Se en by Dr Heck neurologis t 09/28/18e en by Dr Chan eye 09/15/18/ p MRI brain 12/12/2019 OV 01/22/2021 :Keep on the thiamineOV 02/18/2021 :On thiamine and does wellOV 09/14/2021 :Does well nowIs taking thiamineOV 11/04/2022 :Needs to do labs and take the thiamine Moderate r ecurrent major depression 98640563 F33.[address] Booker 09/14/2021 :On citalopram 20mg dailyOn clonazepam 0.5mg daily but not taking itOn duloxetine 20mg dailyOn lexapro 10mg daily but not taking itOn hydroxyzin e 25mg but not taking itOn mitrazapin e 7.5mg daily but not itGiven by Dr Raiza Camara suicidal or homicidalO V 11/04/2022 :Not on any meds at this time, not suicidal or homicidal, declines any referrals too History of malignant neoplasm of breast 734071226 Z85.3 Sees onclogist at [facility] endum: 08/13/2020 : 0: Dr Sue LEMON: R breast infiltrati ng ductal carcinoma 02/17/1999 , L breast infiltrati ng ductal carcinoma 07/06/2011 S/p R partial mastectomy 02/17/99, L modified radical mastectomy /r simple mastectomy 07/06/11re ferred to Dr Roman 's GI for C-scope and f/u with neurologyF /u in 8 weeksOV 10/23/2020 :She states that she states that she did see Dr Rogers on 11/11/2020 OV 01/22/2021 :Needs to see Dr Gutiérrez 02/18/2021 :Keep apt with Dr Gutiérrez 04/30/2021 :Did see Dr Rogers, next apt in 09/2021, last OV 12/17/2020 OV 09/14/2021 :Dr Barnett 08/14/2021 : [facility]:08/11/20 21: CBC: WBC 3.2, PLT 138Concern for paraneopla stic syndromeNe eds to do c-scope/EG D GI: Dr Aydin Ching MD: Dr Tyson/Estephania Olson logy: Dr Se martinez: Dr Merrill tology: Dr Sanchez to get PET scanSee hematology for low PLT count Dr Louie Munguia 11/04/2022 :Sees [facility] oncologist Jelena Huff NP last OV 06/11/2022 OV 03/08/2023 : Keep apts with oncology Hypothyroidism 26954320 E03.9 On levothyrox ine 50mcgs dailyGet labs Gastroesop hageal reflux disease without esophagitis 873262542 K21.9 On pantoprazo le 40mg dailyTake only as needed History of malignant neoplasm of skin 167063998 Z85.828 05/21/2020 : [facility] arm: Squamous cell carcinomaD oes well now, no more apts Unsteady when walking 22 826198 R26.89 Needs to get an electric wheelchair Get PT to eval also for thisShe cannot use a manual wheelchair as that will NOT allow her to do her ADLs or IADLsShe also cannot use a cane or a walker as she is very unsteady on gait, and cannot do her ADLS or IADLsNow has an electric wheelchair , needs the replacemen t batteryAls o get a walkerDoes wellDoes not want to do PT at this time Colostomy present 505262 [address] Del Cid GI for this Persistent insomnia 1919 17781 G47.09 Agreeable to get on trazodone, all side effects explained to her and her daughter, sleep hygeine explainedS tart traZODone 50 mg tablet 1 tablet every day as needed for 90 days Vitamin D deficiency 347 35421 E55.9 [id number] Alexandrea mcmullen MD [facility] [address] [place] [address] 06/28/2023 10:39:40 06/28/2023 11:47:19 Screening - NAD 872804052 Z13.9 C-scope: s/p colostomy for past 5 years, no complaints at this time, sees Dr Del Cid who gives her her colostomy supplies Mammogram: S/p zulema mastectomy Not on anastrazol e[facility] : [facility]:08/11/20 21: CBC: WBC 3.2, PLT 138Concern for paraneopla stic syndromeNe eds to do c-scope/EG D GI: Dr Aydin Ching MD: Dr Tyson/Estephania Olson logy: Dr Se martinez: Dr Merrill tolcrow: Dr Sanchez to get PET scanSee hematology for low PLT count Dr Louie Vides PAP: Used to see Dr Ann, s/p hystrectom y, WWE, declines any more referrals 11/04/2022 DEXA: Ordered 11/04/2022 Get on flu shotGet tdap if not doneGet COVID 19 vaccine but does not want to do this 04/30/2021 , 11/04/2022 Get RSV vaccineCan do shingrix vaccine RTC in 4 monthsGet labsER if any symptoms worsenShe and her daughter Nasima did verbalize her understand ing of the above Hyperlipidemia 05704145 E78.5 Not on any medsGet labs Legal blindness 45966903 H54.8 As per her history is not seeing Dr Chan the eye MD at this time Thrombocyt openic disorder 894631394 D69.[address] Rogers, has seen him OV 09/14/2021 :As per her history will see Dr Lin next apt in 12/2020 OV 11/04/2022 :Get labsNeeds to see Dr Louie Vides OV 06/28/2023 : Needs to be seen by her hematologi st Screening for cardiovascular system disease 738730640 Z13.6 S/p US carotid 04/04/2020 US ECHO 04/04/2020 : EF 60% hyperdynam ic LV fx Get another apt with Dr Dylon Hernandez's disease 92273 002 E51.2 12/27/2019 :D/w Dr Cavanaugh the neurologis t at [facility] yesterday in the evening, he reviewed her chart and has declined to see Myles per him thiamine levels should be checked and replenishe d, he also stated that this was an irreversib le condition, and the speech and the vision impediment s are now permanent 12/31/2019 : Dr Peters, she went to see him to see if the hernia surgery could have caused her sympotms but he could not see how a mesh could cause her symptoms 11/06/2020 : Dr Pearson: Now referred to a movement clinic OV 01/22/2021 :Keep apt with Dr Pearson, is to see a MD for movement clinic in 03/04/2021 OV 02/18/2021 :Sees the MD in the movement clinic now on 03/04/2021 OV 04/30/2021 :Did see Dr Pearson and did see a MD in the movement clinic and was told that 'nothing could be done'Was told to have 24 hour care OV 09/14/2021 :No change in symptoms at this time OV 11/04/2022 :Wants to get a walker, no symptoms change at this time OV 06/28/2023 :Now has a walker, has seen neurology Dr Laboy on 02/15/2023 , was to get a lift chair as she has felt unsteady on her feet when she gets up from a sitting position Thiamine deficiency 3993 25937 E51.9 OV 12/25/2019 :Not on any medication sNoted to have visual issuesSe[facility]ey eye 10/25/18Se en by Dr Heck neurologis t 09/28/18e en by Dr Chan eye 09/15/18/ p MRI brain 12/12/2019 OV 01/22/2021 :Keep on the thiamine OV 02/18/2021 :On thiamine and does well OV 09/14/2021 :Does well nowIs taking thiamine OV 11/04/2022 :Needs to do labs and take the thiamine OV 06/28/2023 : Get labs Moderate r ecurrent major depression 72800286 F33.[address] Driver OV 09/14/2021 :On citalopram 20mg dailyOn clonazepam 0.5mg daily but not taking itOn duloxetine 20mg dailyOn lexapro 10mg daily but not taking itOn hydroxyzin e 25mg but not taking itOn mitrazapin e 7.5mg daily but not it Given by Dr Raiza Camara suicidal or homicidal OV 11/04/2022 : Not on any meds at this time, not suicidal or homicidal, declines any referrals too History of malignant neoplasm of breast [id number] Z85.3 Sees onclogist at [facility] endum: 08/13/2020 : 0: Dr Sue LEMON: R breast infiltrati ng ductal carcinoma 02/17/1999 , L breast infiltrati ng ductal carcinoma 07/06/2011 S/p R partial mastectomy 02/17/99, L modified radical mastectomy /r simple mastectomy 07/06/11re ferred to Dr Roman 's GI for C-scope and f/u with neurologyF /u in 8 weeksOV 10/23/2020 :She states that she states that she did see Dr Rogers on 11/11/2020 OV 01/22/2021 :Needs to see Dr Gutiérrez 02/18/2021 :Keep apt with Dr Gutiérrez 04/30/2021 :Did see Dr Rogers, next apt in 09/2021, last OV 12/17/2020 OV 09/14/2021 :Dr Barnett 08/14/2021 : [facility]:08/11/20 21: CBC: WBC 3.2, PLT 138Concern for paraneopla stic syndromeNe eds to do c-scope/EG D GI: Dr Aydin Ching MD: Dr Tyson/Estephania Olson logy: Dr Se martinez: Dr Merrill tolcrow: Dr Sanchez to get PET scanSee hematology for low PLT count Dr Louie Munguia 11/04/2022 :Sees [facility] oncologist Jelena Huff NP last OV 06/11/2022 OV 03/08/2023 : Keep apts with oncology OV 06/28/2023 : Seen by Dr James 11/10/2022 and was told to f/u with her regular hematologi st/oncolog ist Hypothyroidism 60373579 E03.9 On levothyrox ine 50mcgs dailyGet labs Gastroesop hageal reflux disease without esophagitis 788481834 K21.9 On pantoprazo le 40mg dailyTake only as needed History of malignant neoplasm of skin 042949558 Z85.828 05/21/2020 : [facility] arm: Squamous cell carcinomaD oes well now, no more apts Unsteady when walking 22 498540 R26.89 Needs to get an electric wheelchair Get PT to eval also for this She cannot use a manual wheelchair as that will NOT allow her to do her ADLs or IADLsShe also cannot use a cane or a walker as she is very unsteady on gait, and cannot do her ADLS or IADLs Now has an electric wheelchair Now has a walkerDoes wellDoes not want to do PT at this timeWants to get a lift chairFille d form for [employer] for the lift chair Colostomy present 273416 [address] Del Cid GI for this Persistent insomnia 1919 14189 G47.09 Agreeable to get on trazodone, all side effects explained to her and her daughter, sleep hygeine explained Has been on traZODone 50 mg tablet 1 tablet every day as needed for 90 days Vitamin D deficiency 347 59909 E55.9 Get on vit d weekly and repeat the vit d level [id number] Alexandrea mcmullen MD [facility] [address] [facility], [address] [place] [address] 12/13/2023 15:16:43 12/13/2023 16:06:57 Screening - NAD 917986789 Z13.9 C-scope: s/p colostomy for past 5 years, no complaints at this time, sees Dr Del Cid who gives her her colostomy supplies Mammogram: S/p zulema mastectomy Not on anastrazol e, [facility] : [facility]:08/11/20 21: CBC: WBC 3.2, PLT 138Concern for paraneopla stic syndromeNe eds to do c-scope/EG D GI: Dr Aydin Ching MD: Dr Tyson/Estephania Olson logy: Dr Se martinez: Dr Garfield fontenot: Dr Sanchez to get PET scanSee hematology for low PLT count Dr Louie Vides PAP: Used to see Dr Ann, s/p hystrectriley y, WWE, declines any more referrals 11/04/2022 DEXA: Ordered 11/04/2022 , on prolia Get on flu shotGet tdap if not doneGet COVID 19 vaccine but does not want to do this 04/30/2021 , 11/04/2022 Get RSV vaccineCan do shingrix vaccine RTC in 4 monthsGet labsER if any symptoms worsenShe and her daughter Nasima did verbalize her understand ing of the above Hyperlipidemia 52537194 E78.5 On zetiaGet labs Legal blindness 72767364 H54.8 As per her history is not seeing Dr Chan the eye MD at this time Thrombocyt openic disorder 417149224 D69.[address] Rogers, has seen him OV 09/14/2021 :As per her history will see Dr Lin next apt in 12/2020 OV 11/04/2022 :Get labsNeeds to see Dr Louie Vides OV 06/28/2023 : Needs to be seen by her hematologi st OV 12/13/2023 : Jelena Huff [employer] 10/28/2013 , f/u in one year Screening for cardiovascular system disease 399696550 Z13.6 S/p US carotid 04/04/2020 US ECHO 04/04/2020 : EF 60% hyperdynam ic LV fx Get another apt with Dr Osborne Wernickward's disease 53712 002 E51.2 12/27/2019 :D/w Dr Cavanaugh the neurologis t at [facility] yesterday in the evening, he reviewed her chart and has declined to see Myles per him thiamine levels should be checked and replenishe d, he also stated that this was an irreversib le condition, and the speech and the vision impediment s are now permanent 12/31/2019 : Dr Peters, she went to see him to see if the hernia surgery could have caused her sympotms but he could not see how a mesh could cause her symptoms 11/06/2020 : Dr Pearson: Now referred to a movement clinic OV 01/22/2021 :Keep apt with Dr Pearson, is to see a MD for movement clinic in 03/04/2021 OV 02/18/2021 :Sees the MD in the movement clinic now on 03/04/2021 OV 04/30/2021 :Did see Dr Pearson and did see a MD in the movement clinic and was told that 'nothing could be done'Was told to have 24 hour care OV 09/14/2021 :No change in symptoms at this time OV 11/04/2022 :Wants to get a walker, no symptoms change at this time OV 06/28/2023 :Now has a walker, has seen neurology Dr Laboy on 02/15/2023 , was to get a lift chair as she has felt unsteady on her feet when she gets up from a sitting position OV 01/02/2024 :Dr Laboy 11/17/2023 , was referred to a movement clinic Thiamine deficiency 3993 54491 E51.9 OV 12/25/2019 :Not on any medication sNoted to have visual issuesSeen by [facility] S[facility]ey eye 10/25/18Se en by Dr Heck neurologis t 09/28/18e en by Dr Chan eye 09/15/18/ p MRI brain 12/12/2019 OV 01/22/2021 :Keep on the thiamine OV 02/18/2021 :On thiamine and does well OV 09/14/2021 :Does well nowIs taking thiamine OV 11/04/2022 :Needs to do labs and take the thiamine OV 06/28/2023 : Get labs OV 12/12/2022 : Has seen Dr Laboy, also she is to be on thiamine Moderate r ecurrent major depression 44528343 F33.[address] Driver OV 09/14/2021 :On citalopram 20mg dailyOn clonazepam 0.5mg daily but not taking itOn duloxetine 20mg dailyOn lexapro 10mg daily but not taking itOn hydroxyzin e 25mg but not taking itOn mitrazapin e 7.5mg daily but not it Given by Dr Raiza Camara suicidal or homicidal OV 11/04/2022 : Not on any meds at this time, not suicidal or homicidal, declines any referrals too OV 12/13/2023 :On buspirone 5mg po bidNot suicidal or homicidal and does not want any referrals to psychiatry History of malignant neoplasm of breast 946757312 Z85.3 Sees onclogist at [facility] endum: 08/13/2020 : 0: Dr Sue LEMON: R breast infiltrati ng ductal carcinoma 02/17/1999 , L breast infiltrati ng ductal carcinoma 07/06/2011 S/p R partial mastectomy 02/17/99, L modified radical mastectomy /r simple mastectomy 07/06/11re ferred to Dr Roman '[facility] for C-scope and f/u with neurologyF /u in 8 weeksOV 10/23/2020 :She states that she states that she did see Dr Rogers on 11/11/2020 OV 01/22/2021 :Needs to see Dr Gutiérrez 02/18/2021 :Keep apt with Dr Gutiérrez 04/30/2021 :Did see Dr Rogers, next apt in 09/2021, last OV 12/17/2020 OV 09/14/2021 :Dr Barnett 08/14/2021 : [facility]:08/11/20 21: CBC: WBC 3.2, PLT 138Concern for paraneopla stic syndromeNe eds to do c-scope/EG D GI: Dr Aydin Ching MD: Dr Tyson/Estephania Olson logy: Dr Se martinez: Dr Merrill tologkurt: Dr Sanchez to get PET scanSee hematology for low PLT count Dr Louie Munguia 11/04/2022 :Sees [facility] oncologist Jelena Huff NP last OV 06/11/2022 OV 03/08/2023 : Keep apts with oncology OV 06/28/2023 : Seen by Dr James 11/10/2022 and was told to f/u with her regular hematologi st/oncolog ist OV 12/12/2022 : Seen by her oncologist Hypothyroidism 05794164 E03.9 On levothyrox ine 50mcgs dailyGet labs Gastroesop hageal reflux disease without esophagitis 761622925 K21.9 On pantoprazo le 40mg dailyTake only as needed History of malignant neoplasm of skin 572703201 Z85.828 05/21/2020 : [facility] arm: Squamous cell carcinomaD oes well now, no more apts Unsteady when walking 22 671797 R26.89 Needs to get an electric wheelchair Get PT to eval also for this She cannot use a manual wheelchair as that will NOT allow her to do her ADLs or IADLsShe also cannot use a cane or a walker as she is very unsteady on gait, and cannot do her ADLS or IADLs Now has an electric wheelchair Now has a walkerDoes wellDoes not want to do PT at this timeWants to get a lift chairFille d form for [employer] for the lift chair Colostomy present 247556 [address] Del Cid GI for this Persistent insomnia 1919 38300 G47.09 Agreeable to get on trazodone, all side effects explained to her and her daughter, sleep hygeine explained Has been on traZODone 50 mg tablet 1 tablet every day as needed for 90 days Vitamin D deficiency 347 56269 E55.9 Get on vit d weekly and repeat the vit d level Screening for osteoporosis 210097987 Z13.820 Chronic back pain 322310 002 G89.29 IPC 10/27/2023 On hydrocodon Laisha naloxone Swelling o f left upper limb [id number] 0653978 R22.32 Seen in ER, now much better, suspect lymphedema she states that this occurred d/t blood draws and BP done on the L side, advised not to do this from now, also notify if the swelling is worse, or any symptoms worse, she and her son verbalized their understand ing of the above [id number] Alexandrea mcmullen MD [facility] [address] [facility], [address] [place] [address] 06/07/2024 17:02:44 06/07/2024 18:47:45 Adult health examination 155457275 Z00.00 Screening for disorder 670110780 Z13.9 Screening - NAD 29927018 3 Z13.9 C-scope: s/p colostomy for past 5 years, no complaints at this time, sees Dr Del Cid who gives her her colostomy supplies Mammogram: S/p zulema mastectomy Not on anastrazol e[facility] : [facility]:08/11/20 21: CBC: WBC 3.2, PLT 138Concern for paraneopla stic syndromeNe eds to do c-scope/EG D GI: Dr Aydin Ching MD: Dr Tyson/Estephania Olson logy: Dr Saez nary: Dr Merrill tology: Dr Sanchez to get PET scanSee hematology for low PLT count Dr Louie Vides PAP: Used to see Dr Ann, s/p hystrectom y, WWE, declines any more referrals 11/04/2022 DEXA: Ordered 11/04/2022 , on proliaDEXA : 12/16/2023 : OP Get on flu shotGet tdap if not doneGet COVID 19 vaccine but does not want to do this 04/30/2021 , 11/04/2022 Get RSV vaccineCan do shingrix vaccine RTC in 4 monthsGet labsER if any symptoms worsenShe and her daughter Nasima did verbalize her understand ing of the above Hyperlipidemia 38857065 E78.5 Not taking zetiaGet labs Legal blindness 59346075 H54.8 As per her history is not seeing Dr Chan the eye MD at this time Thrombocyt openic disorder 902606475 D69.[address] Rogers, has seen him OV 09/14/2021 :As per her history will see Dr Lin next apt in 12/2020 OV 11/04/2022 :Get labsNeeds to see Dr Louie Vides OV 06/28/2023 : Needs to be seen by her hematologi st OV 12/13/2023 : Jelena Huff [employer] 10/28/2013 , f/u in one year Screening for cardiovascular system disease 794882024 Z13.6 S/p US carotid 04/04/2020 US ECHO 04/04/2020 : EF 60% hyperdynam ic LV fx Get another apt with Dr Dylon Hernandez's disease 79107 002 E51.2 12/27/2019 :D/w Dr Cavanaugh the neurologis t at [facility] yesterday in the evening, he reviewed her chart and has declined to see Myles per him thiamine levels should be checked and replenishe d, he also stated that this was an irreversib le condition, and the speech and the vision impediment s are now permanent 12/31/2019 : Dr Peters, she went to see him to see if the hernia surgery could have caused her sympotms but he could not see how a mesh could cause her symptoms 11/06/2020 : Dr Pearson: Now referred to a movement clinic OV 01/22/2021 :Keep apt with Dr Pearson, is to see a MD for movement clinic in 03/04/2021 OV 02/18/2021 :Sees the MD in the movement clinic now on 03/04/2021 OV 04/30/2021 :Did see Dr Pearson and did see a MD in the movement clinic and was told that 'nothing could be done'Was told to have 24 hour care OV 09/14/2021 :No change in symptoms at this time OV 11/04/2022 :Wants to get a walker, no symptoms change at this time OV 06/28/2023 :Now has a walker, has seen neurology Dr Laboy on 02/15/2023 , was to get a lift chair as she has felt unsteady on her feet when she gets up from a sitting position OV 01/02/2024 :Dr Laboy 11/17/2023 , was referred to a movement clinic OV 06/07/2024 : States she did not see the movement clinic, encouraged to do so Thiamine deficiency 3993 67994 E51.9 OV 12/25/2019 :Not on any medication sNoted to have visual issuesSeen by [facility] Sweeney eye 10/25/18Se en by Dr Heck neurologis t 09/28/18e en by Dr Chan eye 09/15/18/ p MRI brain 12/12/2019 OV 01/22/2021 :Keep on the thiamine OV 02/18/2021 :On thiamine and does well OV 09/14/2021 :Does well nowIs taking thiamine OV 11/04/2022 :Needs to do labs and take the thiamine OV 06/28/2023 : Get labs OV 12/12/2022 : Has seen Dr Laboy, also she is to be on thiamine Moderate r ecurrent major depression 53201172 F33.[address] Driver OV 09/14/2021 :On citalopram 20mg dailyOn clonazepam 0.5mg daily but not taking itOn duloxetine 20mg dailyOn lexapro 10mg daily but not taking itOn hydroxyzin e 25mg but not taking itOn mitrazapin e 7.5mg daily but not it Given by Dr Raiza Camara suicidal or homicidal OV 11/04/2022 : Not on any meds at this time, not suicidal or homicidal, declines any referrals too OV 12/13/2023 :On buspirone 5mg po bidNot suicidal or homicidal and does not want any referrals to psychiatry OV 06/07/2024 : Does not want any meds, declined any referrals, not suicidal or homicidal History of malignant neoplasm of breast 391706537 Z85.3 Sees onclogist at [facility] endum: 08/13/2020 : 0: Dr Sue LEMON: R breast infiltrati ng ductal carcinoma 02/17/1999 , L breast infiltrati ng ductal carcinoma 07/06/2011 S/p R partial mastectomy 02/17/99, L modified radical mastectomy /r simple mastectomy 07/06/11re ferred to Dr Roman '[facility] for C-scope and f/u with neurologyF /u in 8 weeksOV 10/23/2020 :She states that she states that she did see Dr Rogers on 11/11/2020 OV 01/22/2021 :Needs to see Dr Gutiérrez 02/18/2021 :Keep apt with Dr Gutiérrez 04/30/2021 :Did see Dr Rogers, next apt in 09/2021, last OV 12/17/2020 OV 09/14/2021 :Dr Barnett 08/14/2021 : [facility]:08/11/20 21: CBC: WBC 3.2, PLT 138Concern for paraneopla stic syndromeNe eds to do c-scope/EG D GI: Dr Aydin Ching MD: Dr Tyson/Estephania Olson logy: Dr Se martinez: Dr Garfield fontenot: Dr Sanchez to get PET scanSee hematology for low PLT count Dr Palma ZhGurjit 11/04/2022 :Sees [facility] oncologist Jelena Huff NP last OV 06/11/2022 OV 03/08/2023 : Keep apts with oncology OV 06/28/2023 : Seen by Dr James 11/10/2022 and was told to f/u with her regular hematologi st/oncolog ist OV 12/12/2022 : Seen by her oncologist Jeelna Jeff NP 10/28/2023 , f/u in one year Hypothyroidism 30011341 E03.9 On levothyrox ine 50mcgs dailyGet labs Gastroesop hageal reflux disease without esophagitis 624240761 K21.9 On pantoprazo le 40mg dailyTake only as needed History of malignant neoplasm of skin 160527297 Z85.828 05/21/2020 : [facility] arm: Squamous cell carcinomaD oes well now, no more apts Unsteady when walking 22 743490 R26.89 Needs to get an electric wheelchair Get PT to eval also for this She cannot use a manual wheelchair as that will NOT allow her to do her ADLs or IADLsShe also cannot use a cane or a walker as she is very unsteady on gait, and cannot do her ADLS or IADLs Now has an electric wheelchair Now has a walkerDoes wellDoes not want to do PT at this timeWants to get a lift chairFille d form for [employer] for the lift chair Colostomy present 811473 [address] for this Persistent insomnia 1919 59184 G47.09 Agreeable to get on trazodone, all side effects explained to her and her daughter, sleep hygeine explained Has been on traZODone 50 mg tablet 1 tablet every day as needed for 90 days Vitamin D deficiency 347 17765 E55.9 Get on vit d weekly and repeat the vit d level Screening for osteoporosis 334354557 Z13.820 Chronic back pain 676484 002 G89.29 IPC 10/27/2023 On hydrocodon eReglaa 05/24/2024 On naloxone Swelling o f left upper limb 4674434834 4387363 R22.32 Seen in ER, now much better, suspect lymphedema she states that this occurred d/t blood draws and BP done on the L side, advised not to do this from now, also notify if the swelling is worse, or any symptoms worse, she and her son verbalized their understand ing of the above Hepatic granuloma 964622 009 D86.89 US liver 12/16/2022 : Seen by her oncologist , does need to see GI [id number] Alexandrea mcmullen MD [facility] [address] [facility], [address] [place] [address] 04/16/2025 14:58:47 04/16/2025 16:00:07 Screening - NAD 636373266 Z13.9 C-scope: s/p colostomy for past 5 years, no complaints at this time, sees Dr Del Cid who gives her her colostomy supplies Mammogram: S/p zulema mastectomy Not on anastrazol e[facility] : [facility]:08/11/20 21: CBC: WBC 3.2, PLT 138Concern for paraneopla stic syndromeNe eds to do c-scope/EG D GI: Dr Aydin Ching MD: Dr Tyson/Estephania Olson logy: Dr Saez nary: Dr Merrill tology: Dr Sanchez to get PET scanSee hematology for low PLT count Dr Louie Vides PAP: Used to see Dr Ann, s/p hystrectom y, WWE, declines any more referrals 11/04/2022 DEXA: Ordered 11/04/2022 , on proliaDEXA : 12/16/2023 : OP Get on flu shotGet tdap if not doneGet COVID 19 vaccine but does not want to do this 04/30/2021 , 11/04/2022 Get RSV vaccineCan do shingrix vaccine RTC in 4 monthsGet labsER if any symptoms worsenShe did verbalize her understand ing of the above Hyperlipidemia 22328410 E78.5 Not taking zetiaGet labs Legal blindness 71992168 H54.8 As per her history is not seeing Dr Chan the eye MD at this time Thrombocyt openic disorder 982877203 D69.[address] Rogers, has seen him OV 09/14/2021 :As per her history will see Dr Lin next apt in 12/2020 OV 11/04/2022 :Get labsNeeds to see Dr Louie Vides OV 06/28/2023 : Needs to be seen by her hematologi st OV 12/13/2023 : Jelena Huff [employer] 10/28/2013 , f/u in one year OV 04/16/2025 : Jelena Huff [employer] [facility] 11/16/2024 , next apt in one year Screening for cardiovascular system disease 785042148 Z13.6 S/p US carotid 04/04/2020 US ECHO 04/04/2020 : EF 60% hyperdynam ic LV fx Get another apt with Dr Osborne Wernicke's disease 24596 002 E51.2 12/27/2019 :D/w Dr Cavanaugh the neurologis t at [facility] yesterday in the evening, he reviewed her chart and has declined to see Myles per him thiamine levels should be checked and replenishe d, he also stated that this was an irreversib le condition, and the speech and the vision impediment s are now permanent 12/31/2019 : Dr Peters, she went to see him to see if the hernia surgery could have caused her sympotms but he could not see how a mesh could cause her symptoms 11/06/2020 : Dr Pearson: Now referred to a movement clinic OV 01/22/2021 :Keep apt with Dr Pearson, is to see a MD for movement clinic in 03/04/2021 OV 02/18/2021 :Sees the MD in the movement clinic now on 03/04/2021 OV 04/30/2021 :Did see Dr Pearson and did see a MD in the movement clinic and was told that 'nothing could be done'Was told to have 24 hour care OV 09/14/2021 :No change in symptoms at this time OV 11/04/2022 :Wants to get a walker, no symptoms change at this time OV 06/28/2023 :Now has a walker, has seen neurology Dr Laboy on 02/15/2023 , was to get a lift chair as she has felt unsteady on her feet when she gets up from a sitting position OV 01/02/2024 :Dr Laboy 11/17/2023 , was referred to a movement clinic OV 06/07/2024 : States she did not see the movement clinic, encouraged to do so OV 04/16/2025 : As noted did see Dr Ovalles to keep apt with him and the movement clinic but states today that she was told by the movement clin and Dr Laboy that 'nothing can be done'She has now decided and declined any new referrals Thiamine deficiency 3993 18301 E51.9 OV 12/25/2019 :Not on any medication sNoted to have visual issuesSe[facility] Sweeney eye 10/25/18Se en by Dr Heck neurologis t 09/28/18e en by Dr Chan eye 09/15/18/ p MRI brain 12/12/2019 OV 01/22/2021 :Keep on the thiamine OV 02/18/2021 :On thiamine and does well OV 09/14/2021 :Does well nowIs taking thiamine OV 11/04/2022 :Needs to do labs and take the thiamine OV 06/28/2023 : Get labs OV 12/12/2022 : Has seen Dr Laboy, also she is to be on thiamine OV 04/16/2025 : Keep apt with neurology Moderate r ecurrent major depression [id number] F33.[address] Driver OV 09/14/2021 :On citalopram 20mg dailyOn clonazepam 0.5mg daily but not taking itOn duloxetine 20mg dailyOn lexapro 10mg daily but not taking itOn hydroxyzin e 25mg but not taking itOn mitrazapin e 7.5mg daily but not it Given by Dr Raiza Camara suicidal or homicidal OV 11/04/2022 : Not on any meds at this time, not suicidal or homicidal, declines any referrals too OV 12/13/2023 :On buspirone 5mg po bidNot suicidal or homicidal and does not want any referrals to psychiatry OV 06/07/2024 : Does not want any meds, declined any referrals, not suicidal or homicidal OV 04/16/2025 :Not on any medication s, declined, not suicidal or homicidal History of malignant neoplasm of breast [id number] Z85.3 Sees onclogist at [facility] endum: 08/13/2020 : 0: Dr Sue LEMON: R breast infiltrati ng ductal carcinoma 02/17/1999 , L breast infiltrati ng ductal carcinoma 07/06/2011 S/p R partial mastectomy 02/17/99, L modified radical mastectomy /r simple mastectomy 07/06/11re ferred to Dr Roman '[facility] for C-scope and f/u with neurologyF /u in 8 weeksOV 10/23/2020 :She states that she states that she did see Dr Rogers on 11/11/2020 OV 01/22/2021 :Needs to see Dr Gutiérrez 02/18/2021 :Keep apt with Dr Gutiérrez 04/30/2021 :Did see Dr Rogers, next apt in 09/2021, last OV 12/17/2020 OV 09/14/2021 :Dr Barnett 08/14/2021 : [facility]:08/11/20 21: CBC: WBC 3.2, PLT 138Concern for paraneopla stic syndromeNe eds to do c-scope/EG D GI: Dr Aydin Ching MD: Dr Tyson/Estephania Olson logy: Dr eS martinez: Dr Merrill tolcrow: Dr Sanchez to get PET scanSee hematology for low PLT count Dr Louie Munguia 11/04/2022 :Sees [facility] oncologist Jelena Huff NP last OV 06/11/2022 OV 03/08/2023 : Keep apts with oncology OV 06/28/2023 : Seen by Dr James 11/10/2022 and was told to f/u with her regular hematologi st/oncolog ist OV 12/12/2022 : Seen by her oncologist Jelena Jeff NP 10/28/2023 , f/u in one year OV 04/16/2025 : Jelena Huff 11/16/2024 , next in one year Hypothyroidism [id number] E03.9 On levothyrox ine 50mcgs dailyGet labs Gastroesop hageal reflux disease without esophagitis [id number] K21.9 On pantoprazo le 40mg dailyTake only as neededSee GI History of malignant neoplasm of skin [id number] Z85.828 05/21/2020 : [facility] arm: Squamous cell carcinomaD oes well now, no more apts Unsteady when walking 22 445302 R26.89 Needs to get an electric wheelchair Get PT to eval also for this She cannot use a manual wheelchair as that will NOT allow her to do her ADLs or IADLsShe also cannot use a cane or a walker as she is very unsteady on gait, and cannot do her ADLS or IADLs Now has an electric wheelchair Now has a walkerDoes wellDoes not want to do PT at this timeWants to get a lift chairFille d form for [employer] for the lift chair Colostomy present [id number] Maria Eugenia [address] for thisReferr ed to Dr Moreno 04/16/2025 Persistent insomnia 1919 79092 G47.09 Agreeable to get on trazodone, all side effects explained to her and her daughter, sleep hygeine explained Has been on traZODone 50 mg tablet 1 tablet every day as needed for 90 days Vitamin D deficiency 347 73823 E55.9 Repeat the vit d level Screening for osteoporosis [id number] Z13.820 On prolia, last 02/08/2025 Chronic back pain 159671 002 G89.29 IPC 10/27/2023 On hydrocodon e, Lorilee Sebesta 05/24/2024 On naloxone Swelling o f left upper limb [id number] 0896386 R22.32 Seen in ER, now much better, suspect lymphedema she states that this occurred d/t blood draws and BP done on the L side, advised not to do this from now, also notify if the swelling is worse, or any symptoms worse, she and her son verbalized their understand ing of the above Hepatic granuloma 389797 009 D86.89 US liver 12/16/2022 : Seen by her oncologist , does need to see [facility] again 04/16/2025 Pain in ri ght lower limb [id number] M79.604 Get US R LE to r/o DVT stat Health Concerns Section Related Observation LastModified by Organization Lucian vasquez LastModified Time None Recorded Concern Status LastModified by Organization Details LastModified Time None Recorded Advance Directives Directive N: Patient given information . Payers Insurance Date Sequence Insurance Name Policy Number Policy Merchant Covered Member ID Merchant Member ID Guarantor Name 04/16/2025 2 [place] WHEN MEDICARE OR MEDICARE REPLACEMENT PRIMARY) Hermila Wall [id number] Hermila Wall 04/16/2025 1 [facility] (MEDICARE REPLACEMENT/AD VANTAGE - PPO) [id number] Hermila Wall [id number] Hermila Wall 04/16/2025 2 [facility] (MEDICAID REPLACEMENT - HMO) [id number] Hermila Wall [id number] Hermila Wall Notes Date Note Type Note Provider Name and Address Organization Details Recorded Time 03/08/2023 text/html OV 12/25/2019:He re to establish carePast PCP: Dr Valencia Hx:HypothyroidismG ERDReviewed social family and surgical historyHere with her daughter and GDShe feels well, needs to do labs OV 05/01/2020:Here for her routine aptNo lam Mandujano feels wellNeeds to see eye MDShe states that she is not seeing neurology anymore OV 10/23/2020:Here for the tele visitShe is agreeable to do the tele visitShe states that she is doing wellShe did do the labs on 10/22/2020he states that she has now seen a new neurologist in [facility] Dr King and is to get a MRI of the brain OV 01/22/2021:Here for her routine aptTele visit, she is agreeable to do the televisitShe feels wellNo recent labs since 10/30/2020 OV 02/18/2021:Here for apt for an electric scooterShe is doing well, has unsteady gait, recently seen a month agoMerte is here for her MWV also OV 04/30/2021:Tele visitShe is agreeable to do the televisitShe is doing wellNo lam wardMary states that she did get a wheelchair, but now she needs to get a letter stating that she needs a 2 bedroom apartment as she has a wheelchair and she needs a administration specialist to live with her OV 09/14/2021:Tele visitShe is agreeable to do the visitShe is doing wellShe states that she has seen Dr Rogers but has not been able to keep the other apts as she has been afraid of catching COVID and also the other MDs have not yet called to set up the aptsC/o URI sx but feels better, still has no sense of smell or taste OV 11/04/2022:Here for her f/u apt, she is here with her daughter Nasima, is doing well, needs to do a face to face for a walker and battery replacement for her wheelchair, no new labs noted OV 03/08/2023: Here for her f/u apt, she is feeling well today, wants a pill for sleep Alexandrea Smith MD [address] [facility] [facility], [place], [address], [facility] [employer] 04/14/2023 09:09:40 06/28/2023 text/html OV 12/25/2019:He re to establish carePast PCP: Dr Valencia Hx:HypothyroidismG ERDReviewed social family and surgical historyHere with her daughter and GDShe feels well, needs to do labsOV 05/01/2020:Here for her routine aptNo lam Mandujano feels wellNeeds to see eye MDShe states that she is not seeing neurology anymoreOV 10/23/2020:Here for the tele visitShe is agreeable to do the tele visitShe states that she is doing wellShe did do the labs on 10/22/2020he states that she has now seen a new neurologist in [facility] Dr King and is to get a MRI of the brainOV 01/22/2021:Here for her routine aptTele visit, she is agreeable to do the televisitShe feels wellNo recent labs since 10/30/2020OV 02/18/2021:Here for apt for an electric scooterShe is doing well, has unsteady gait, recently seen a month agoShe is here for her MWV alsoOV 04/30/2021:Tele visitShe is agreeable to do the televisitShe is doing wellNo lam Mandujano states that she did get a wheelchair, but now she needs to get a letter stating that she needs a 2 bedroom apartment as she has a wheelchair and she needs a administration specialist to live with herOV 09/14/2021:Tele visitShe is agreeable to do the visitShe is doing wellShe states that she has seen Dr Rogers but has not been able to keep the other apts as she has been afraid of catching COVID and also the other MDs have not yet called to set up the aptsC/o URI sx but feels better, still has no sense of smell or tasteOV 11/04/2022:Here for her f/u apt, she is here with her daughter Nasima, is doing well, needs to do a face to face for a walker and battery replacement for her wheelchair, no new labs noted OV 03/08/2023: Here for her f/u apt, she is feeling well today, wants a pill for sleep OV 06/28/2023: Here for her routine f/u, she feels well today but wants to now get a lift chair, she is seeing Dr Laboy who suggested that she get this as she has been unsteady d/t her getting up from a sitting position and she get bruised on the ankles Alexandrea Smith MD [address] [facility], [facility] [address], [place], [address], [facility] 06/28/2023 12:03:39 12/13/2023 text/html OV 12/25/2019:He re to establish carePast PCP: Dr Valencia Hx:HypothyroidismG ERDReviewed social family and surgical historyHere with her daughter and GDShe feels well, needs to do labsOV 05/01/2020:Here for her routine aptNo new labsShward feels wellNeeds to see eye MDShe states that she is not seeing neurology anymoreOV 10/23/2020:Here for the tele visitShe is agreeable to do the tele visitShe states that she is doing wellShe did do the labs on 10/22/2020he states that she has now seen a new neurologist in [facility] Dr King and is to get a MRI of the brainOV 01/22/2021:Here for her routine aptTele visit, she is agreeable to do the televisitShe feels wellNo recent labs since 10/30/2020OV 02/18/2021:Here for apt for an electric scooterShe is doing well, has unsteady gait, recently seen a month agoShe is here for her MWV alsoOV 04/30/2021:Tele visitShe is agreeable to do the televisitShe is doing wellNo new Delbert states that she did get a wheelchair, but now she needs to get a letter stating that she needs a 2 bedroom apartment as she has a wheelchair and she needs a administration specialist to live with herOV 09/14/2021:Tele visitShe is agreeable to do the visitShe is doing wellShe states that she has seen Dr Rogers but has not been able to keep the other apts as she has been afraid of catching COVID and also the other MDs have not yet called to set up the aptsC/o URI sx but feels better, still has no sense of smell or tasteOV 11/04/2022:Here for her f/u apt, she is here with her daughter Nasima, is doing well, needs to do a face to face for a walker and battery replacement for her wheelchair, no new labs noted OV 03/08/2023: Here for her f/u apt, she is feeling well today, wants a pill for sleep OV 06/28/2023: Here for her routine f/u, she feels well today but wants to now get a lift chair, she is seeing Dr Laboy who suggested that she get this as she has been unsteady d/t her getting up from a sitting position and she get bruised on the ankles OV 12/13/2023: Here for her f/u apt, she is doing well today, she is doing very well, did have swelling over the L forarm and it is now getting better, no pain, no N/T or weakness, she is here with her son Rg Duboiscarloscherie MD Luis [address] [facility], [place], [address], [place] [facility] [employer] 12/13/2023 16:38:28 06/07/2024 text/html OV 12/25/2019:He re to establish carePast PCP: Dr Valencia Hx:HypothyroidismG ERDReviewed social family and surgical historyHere with her daughter and GDShe feels well, needs to do labsOV 05/01/2020:Here for her routine aptNo lam Mandujano feels wellNeeds to see eye MDShe states that she is not seeing neurology anymoreOV 10/23/2020:Here for the tele visitShe is agreeable to do the tele visitShe states that she is doing wellShe did do the labs on 10/22/2020he states that she has now seen a new neurologist in [facility] Dr King and is to get a MRI of the brainOV 01/22/2021:Here for her routine aptTele visit, she is agreeable to do the televisitShe feels wellNo recent labs since 10/30/2020OV 02/18/2021:Here for apt for an electric scooterShe is doing well, has unsteady gait, recently seen a month agoShe is here for her MWV alsoOV 04/30/2021:Tele visitShe is agreeable to do the televisitShe is doing wellNo new labsShe states that she did get a wheelchair, but now she needs to get a letter stating that she needs a 2 bedroom apartment as she has a wheelchair and she needs a administration specialist to live with herOV 09/14/2021:Tele visitShe is agreeable to do the visitShe is doing wellShe states that she has seen Dr Rogers but has not been able to keep the other apts as she has been afraid of catching COVID and also the other MDs have not yet called to set up the aptsC/o URI sx but feels better, still has no sense of smell or tasteOV 11/04/2022:Here for her f/u apt, she is here with her daughter Nasima, is doing well, needs to do a face to face for a walker and battery replacement for her wheelchair, no new labs noted OV 03/08/2023: Here for her f/u apt, she is feeling well today, wants a pill for sleep OV 06/28/2023: Here for her routine f/u, she feels well today but wants to now get a lift chair, she is seeing Dr Laboy who suggested that she get this as she has been unsteady d/t her getting up from a sitting position and she get bruised on the ankles OV 12/13/2023: Here for her f/u apt, she is doing well today, she is doing very well, did have swelling over the L forarm and it is now getting better, no pain, no N/T or weakness, she is here with her son Rg OV 06/07/2024: Here for her f/u apt, she is doing well now Alexandrea Smith MD [address], [place], [address], [place] [facility] 06/07/2024 19:18:01 04/16/2025 text/html OV 12/25/2019:He re to establish carePast PCP: Dr Valencia Hx:HypothyroidismG ERDReviewed social family and surgical historyHere with her daughter and GDShe feels well, needs to do labsOV 05/01/2020:Here for her routine aptNo lam Mandujano feels wellNeeds to see eye MDShe states that she is not seeing neurology anymoreOV 10/23/2020:Here for the tele visitShe is agreeable to do the tele visitShe states that she is doing wellShe did do the labs on 10/22/2020he states that she has now seen a new neurologist in [facility] Dr King and is to get a MRI of the brainOV 01/22/2021:Here for her routine aptTele visit, she is agreeable to do the televisitShe feels wellNo recent labs since 10/30/2020OV 02/18/2021:Here for apt for an electric scooterShe is doing well, has unsteady gait, recently seen a month agoShe is here for her MWV alsoOV 04/30/2021:Tele visitShe is agreeable to do the televisitShe is doing wellNo lam Elkinsward states that she did get a wheelchair, but now she needs to get a letter stating that she needs a 2 bedroom apartment as she has a wheelchair and she needs a administration specialist to live with herOV 09/14/2021:Tele visitShe is agreeable to do the visitShe is doing wellShe states that she has seen Dr Rogers but has not been able to keep the other apts as she has been afraid of catching COVID and also the other MDs have not yet called to set up the aptsC/o URI sx but feels better, still has no sense of smell or tasteOV 11/04/2022:Here for her f/u apt, she is here with her daughter Nasima, is doing well, needs to do a face to face for a walker and battery replacement for her wheelchair, no new labs noted OV 03/08/2023: Here for her f/u apt, she is feeling well today, wants a pill for sleep OV 06/28/2023: Here for her routine f/u, she feels well today but wants to now get a lift chair, she is seeing Dr Laboy who suggested that she get this as she has been unsteady d/t her getting up from a sitting position and she get bruised on the ankles OV 12/13/2023: Here for her f/u apt, she is doing well today, she is doing very well, did have swelling over the L forarm and it is now getting better, no pain, no N/T or weakness, she is here with her son Rg OV 06/07/2024: Here for her f/u apt, she is doing well now OV 04/16/2025: Here for her f/u apt, she feels well today, she has noted some R leg pain, no N/T or weakness, this has occurred since past Tuesday, no chest pain or SOB, does have palpitationsShe does state that she 'walks' in the house 50 times a day from her door to bedroom to 'exercise' Alexandrea Smith MD [address] [facility], [place], [address], [facility] 04/16/2025 16:18:20 OBGyn Episode No OBEpisode recorded.
--- OUTSIDE RECORDS SUMMARY | 2025-04-16 16:26 | XMS_ITS | Encounter Summary ---
Author Organization [facility] Address [address] [facility] [place] [address] Care Team Providers Care Wood Turner Name Role Phone Everardo Cori Bravo GRAIN UNLOADER MACHINE-TARGET AIRCRAFT CONTROLLER Primary Care Provider Skylar Kc MD Primary Care Provider Unavaila ble Cori Mcgee GRAIN UNLOADER MACHINE-TARGET AIRCRAFT CONTROLLER Primary Care Provider Skylar Kc MD Unavailable Unavailable Marquita Umanzor RN Unavailable [phone] Monserrat Smith MD Primary Care Provider Encounter Details Date Type Department Care Team (Late st Contact Info) Description 05/10/2018 Ophth Exam [facility] [address] [place] [id number] Fidelina Tran MD [address] [place] [id number] Social History Tobacco Use Types Packs/Day Years Used Date Smoking Tobacco: Never Smokeless Tobacco: Never Alcohol Use Standard Drinks/Week Comments No 0 (1 standard drink = 0.6 oz pur e alcohol) Comments No Sex and Gender Information Value Date Recorded Sex Assigned at Not on file 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 Gender Identity Not on file Sexual Orientation Not on file documented as of this encounter Plan of Treatment Not on file documented as of this encounter Visit Diagnoses Not on filedocumented in this encounter Care Teams Wood Turner Relationship Specialty Start Date End Date Cori Mcgee APRN-TARGET AIRCRAFT CONTROLLER PCP - General Nurse Practitioner Family 05/10/1805/15 Skylar Kc MD PCP - General 05/16/18 06/13/18 Cori Mcgee APRN-TARGET AIRCRAFT CONTROLLER PCP - General 06/14/18 06/10/22 Monserrat Smith MD [address] [id number] PCP - General 06/11/22 Skylar Kc MD Internal Medicine 04/26/18 Marquita Umanzor RN Inspector General 05/11/18 documented as of this encounter
--- OUTSIDE RECORDS SUMMARY | 2025-04-16 16:26 | XMS_ITS | Encounter Summary ---
Author Organization [facility] Address [address] [facility] [place] [address] Care Team Providers Care Vegetable Washing Machine Operator Name Role Phone Everardo Cori Bravo MOLDED GRID AND PARTS INSPECTOR-TOLL TICKET CLERK Primary Care Provider Skylar Kc MD Primary Care Provider Unavaila ble Cori Mcgee MOLDED GRID AND PARTS INSPECTOR-TOLL TICKET CLERK Primary Care Provider Skylar Kc MD Unavailable Unavailable Marquita Umanzor RN Unavailable [phone] Monserrat Smith MD Primary Care Provider Encounter Details Date Type Department Care Team (Late st Contact Info) Description 05/11/2018 Ophth Exam [facility] [address] [place] [id number] Fidelina Tran MD [address] [place] [id number] Social History Tobacco Use Types Packs/Day Years Used Date Smoking Tobacco: Never Smokeless Tobacco: Never Alcohol Use Standard Drinks/Week Comments No 0 (1 standard drink = 0.6 oz pur e alcohol) Comments No Sex and Gender Information Value Date Recorded Sex Assigned at Not on file 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 Answer Date of Assessment Author No 05/10/2018 8:50 PM Rashard Montiel RN * Is person blind or have serious difficulty seeing? Answer Date of Assessment Author Yes 05/10/2018 9:36 PM Rashard Montiel RN * Does person have serious difficulty walking/climbing stairs? Answer Date of Assessment Author Yes 05/10/2018 9:36 PM Rashard Montiel RN * Does person have difficulty dressing/bathing? Answer Date of Assessment Author Yes 05/10/2018 9:36 PM Rashard Montiel RN * Does person have difficulty doing errands alone? Answer Date of Assessment Author Yes 05/10/2018 9:36 PM Rashard Montiel RN documented as of this encounter Mental Status * Does person have difficulty concentrating/remembering/making decisions? Answer Entry Date Author No 05/10/2018 8:50 PM Rashard Montiel RN documented in this encounter Plan of Treatment Not on file documented as of this encounter Visit Diagnoses Not on filedocumented in this encounter Care Teams Vegetable Washing Machine Operator Relationship Specialty Start Date End Date Cori Mcgee APRN-CNP PCP - General Nurse Practitioner Family 05/10/1805/15 Skylar Kc MD PCP - General 05/16/18 06/13/18 Cori Mcgee APRN-CNP PCP - General 06/14/18 06/10/22 Monserrat Smith MD [address] [phone] PCP - General 06/11/22 Skylar Kc MD Internal Medicine 7/18/18 Marquita Uamnzor RN Product Manager E Commerce 05/11/18 documented as of this encounter
--- OUTSIDE RECORDS SUMMARY | 2025-04-16 16:26 | XMS_ITS | Clinical Summary ---
Author Organization [facility] Address [address] [place] [address] Care Team Providers Care Biological Chemist Name Role Phone Kurtis Tyson MD Unavailable [phone] Helen Sweeney MD Unavailable Leroy Ctoton MD Unavailable [phone] Niles Valencia MD Unavailable Jaimie Smith MD Primary Care Provide r Curt Layne MD Unavailable Brayden James MD Unavailable Allergies Active Allergy Reactions Criticality Noted Date Comments Adhesive Hives Medium 01/01/2014 Adhesive Tape-Silicones Blisters High 03/26/2020 Hydromorphone Anaphylaxis,Other (See comments) High 03/26/2020 Reaction: ANAPHYLAXIS, , [place] Bark Extract (Pycnogenols) Unknown 03/26/2020 [place] Needle Oil Anaphylaxis High [place] Oil Anaphylaxis High 03/26/2020 [place] Tar Anaphylaxis High Medications levothyroxine (SYNTHROID, LEVOTHROID) 75 mcg tabletIndicatio ns:hypothyroidi sm Take 1 tablet (75 mcg total) by mouth early childhood before breakfast [address] (PROTONIX) 40 mg EC tabletIndicatio ns:GI Bleed Take 1 tablet (40 mg total) by mouth daily 0 9 Active Additional Information Patient taking differently:40 mg oralEvery morning, Indications: GI Bleed, Reported on 02/09/2023 cyanocobalamin (Vitamin B-12) 1,000 mcg tabletIndicatio ns:Prevention of Vitamin B12 Deficiency Take 1 tablet (1,000 mcg total) by mouth daily with lunch Active traZODone (DESYREL) 50 mg tablet Take 50 mg by mouth daily as needed 3 Active HYDROcodone-barbara taminophen (NORCO) 10-325 mg per tablet Take 1 tablet by mouth every 6 (six) hours 3 Active Prolia 60 mg/mL syringe INJECT 1ML UNDER THE SKIN ONCE EVERY 6 MONTHS 3 Active dicyclomine (BENTYL) 10 mg capsule 3 Active naproxen (ALEVE) 220 mg tablet Take 2 tablets (440 mg total) by mouth 3 (three) times a day as needed Active rosuvastatin (CRESTOR) 40 mg tablet Take 1 tablet (40 mg total) by mouth every evening 3 Active levothyroxine (SYNTHROID) 50 mcg tablet TAKE 1 TABLET BY MOUTH DAILY ON AN EMPTY STOMACH 3 Active ALPRAZolam (XANAX) 0.5 mg tablet Take 1-2 tablets (0.5-1 mg total) by mouth as directed 1-2 tablets by mouth 30 minutes prior to procedure 2 tablet 3 Active Active Problems Problem Noted Date Diagnosed Date BRCA1 gene mutation positive 12/25/2020 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 KUB significant for dilated bowel loops, c/f SBO vs ileus. Potential for partial SBO given patient's abdominal surgery history with continued bowel movements. Possible ileus given previous MSIR administration. Improvement in nausea after 1 episode. Requesting fluids and crackers this AM. - Hold MSIR - Full diet, monitor for redevelopment of symptoms. -- 09/05: tolerated full diet with no nausea/vomiting Recurrent major depressive disorder 08/27/2019 Assessment & Plan (08/27/2019 7:33 PM BISQUE CLEANER): Known history on home amitriptyline - Continue home amitriptyline 50 mg qd Postural instability 08/27/2019 Assessment & Plan (09/04/2019 11:15 AM BISQUE CLEANER): Patient with known history of postural instability that has been undergone extensive w/u as an outpatient; including, brain MRI, ENT, neuro-ophtho, LP, RPR, GQ1b, autoimmune studies, and paraneoplastic panel. All were negative. Receives thrice weekly outpatient therapy at home. Chart review notable for patient being bed ridden approximately 1 year prior. Ambulating with walker prior to admission. - PT/OT - Noted dysmetria on physical exam -> notable for potential cerebellar dysfunction -- Will not consult neuro while in house, may follow as an outpatient. - Discharged on 08/29 with noted ambulation at home -> PT/OT - Pain control -- Previously prescribed morphine, will attempt flexeril (09/01) -> patient reported improvement with flexeril 5 mg tid -- 09/03: increased flexeril to 10 mg tid -> patient's movement much improved with dosing on 09/04 Assessment & Plan (08/28/2019 10:37 AM BISQUE CLEANER): Patient with known history of postural instability that has been undergone extensive w/u as an outpatient; including, brain MRI, ENT, neuro-ophtho, LP, RPR, GQ1b, autoimmune studies, and paraneoplastic panel. All were negative. Receives thrice weekly outpatient therapy at home. Chart review notable for patient being bed ridden approximately 1 year prior. Ambulating with walker prior to admission. - PT/OT - Noted dysmetria on physical exam -> notable for potential cerebellar dysfunction -- Will not consult neuro while in house, may follow as an outpatient. - Attempt ambulation on 08/28 - Pain control Fall at home 08/27/2019 Assessment & Plan (09/02/2019 9:11 AM BISQUE CLEANER): Patient hx consistent with mechanical fall (walker wheel caught in jyoti causing a backwards fall). Notable pain s/p fall causing a prolonged process of return to the bed. Labs WNL. Imaging thus far negative (CT head and c-spine, L hip, L femur, L knee XRs). - PT/OT previously consulted on prior admission, both teams recommended SNF placement. Patient refused SNF placement at that time, stating that she had care at home with her daughter and would like PT/OT at home. Patient now returning to hospital for SNF placement. - PT/OT evaluation - Pain control -- Minimal PRNs required on previous admission, will start with scheduled Tylenol, flexeril and PRN MSIR first line -> improvement in pain with flexeril Assessment & Plan (08/29/2019 7:22 AM BISQUE CLEANER): Patient hx consistent with mechanical fall (walker wheel caught in jyoti causing a backwards fall). Notable pain s/p fall causing a prolonged process of return to the bed. Labs WNL. Imaging thus far negative (CT head and c-spine, L hip, L femur, L knee XRs). - PT/OT - Pain control -- no PRNs required, will d/c morphine PO and IV - Attempt ambulation 08/28 -> unable to walk for PT/OT, recommending SNF; however, patient is refusing. Want's to discharge to home with family and home health -- Plan for discharge 08/29-> discharging today - Patient and family c/f coccyx fracture -> sacrum/coccyx XR -- No findings of fracture Pain of left lower extremity 08/27/2019 Assessment & Plan (09/04/2019 11:18 AM BISQUE CLEANER): S/p fall at home. Patient unable to ambulate due to pain. Increased pain with movement of left leg, no TTP on examination - Tylenol 1g q6h scheduled - Flexeril (09/01) 2.5 -> 5 tid -> 10 tid - MSIR 15 mg q4h prn first line -- Holding in the setting of possible obstruction Assessment & Plan (08/28/2019 10:36 AM BISQUE CLEANER): S/p fall at home. Patient unable to ambulate due to pain. Increased pain with movement of left leg, no TTP on examination - Tylenol 1g q6h scheduled - MSIR 15 mg q4h prn first line, morphine 4 mg IV q4h prn second line -- No PRNs required overnight, will discontinue Relationship problem with family member 04/05/20 19 Persistent depressive disorder 04/05/2019 Assessment & Plan (09/04/2019 11:16 AM BISQUE CLEANER): Known history on home amitriptyline - Discussed with patient switching to duloxetine, she agrees -> duloxetine 30 mg every day started. Assessment & Plan (04/05/2019 11:57 AM CDT): Moderate - chronic, persistent symptoms including several of the following: depressed mood for most of the day, for more days than not, as indicated by either subjective account or observation by others for at least 2 years, and at least the presence, while depressed, of 2 or more of the following: poor appetite or overeating, insomnia or hypersomnia, low energy or fatigue, low self-esteem, poor concentration or difficulty making decisions, feelings of hopelessness. It is additionally noted that the patient has never been without the symptoms for more than 2 months at a time. Additionally, it is noted that there has never been a manic episode or a hypomanic episode, and criteria have never been met for cyclothymic disorder. The disturbance is not better explained by a persistent schizoaffective disorder, schizophrenia, delusional disorder, or other specified or unspecified schizophrenia spectrum and other psychotic disorder. The symptoms are not attributable to the physiological effects of a substance (e.g., a drug of abuse, a medication) or another medical condition (e.g., hypothyroidism). The patient does report that the symptoms cause clinically significant distress or impairment in social, occupational, or other important areas of functioning. The patient denies next feel denies current suicidal ideation. The patient denies current homicidal ideation. The patient does not report any symptoms of psychosis, maurice, or hypomania. Supportive, insight-oriented counseling provided in the office today I discussed the importance of lifestyle modification with the patient today. The patient will focus on lifestyle modification including changes to diet, incorporate regularly scheduled exercise, obtain sufficient sleep/maintaining proper sleep hygiene, and reduce overall level of stress. The patient will start the following medication (or medications): Zoloft 50 mg daily Amitriptyline 50 mg at bedtime Full informed consent provided by the patient to start the current medications. The patient verbalized an understanding of the reason for [initiating/continuing] including the diagnosis and target symptoms for the medication recommended, the possible benefits and/or intended outcome of treatment, and as applicable, all available procedures involved in the proposed treatment, the possible risks and side effects, [(including risk of medications to women and women who are )], the possible alternatives and complementary treatments, the possible results of not taking the recommended medications, (including but not limited to worsening symptoms, psychiatric instability, and even ), the possibility that this medication dose and/or frequency may need to be adjusted over time in consultation with Dr. Camacho. The patient verbalized an understanding of the need for ongoing medical and psychiatric monitoring on an interval basis. At this time, the patient verbalizes full consent to [initiating/continuing] [this medication or these medications] and understands the benefits and risks and wishes to proceed with full, informed consent. VALERY (generalized anxiety disorder) 04/05/2019 Assessment & Plan (04/05/2019 12:01 PM CDT): Chronic, persistent symptoms of Generalized Anxiety Disorder including restlessness or feeling of feeling keyed up or on edge, being easily fatigued, difficulty concentrating or mind going blank, irritability, muscle tension, and sleep disturbance. The patient reports that the anxiety, worry, or physical symptoms cause clinically significant distress or impairment in social, occupational, or other important areas of functioning. Initiate the following medications: Zoloft 50 mg daily Full informed consent provided by the patient to start the current medication (or medications). The patient verbalized an understanding of the reason for initiating/continuing including the diagnosis and target symptoms for the medication recommended, the possible benefits and/or intended outcome of treatment, and as applicable, all available procedures involved in the proposed treatment, the possible risks and side effects, (including risk of medications to women and women who are ), the possible alternatives and complementary treatments, the possible results of not taking the recommended medications, (including but not limited to worsening symptoms, psychiatric instability, and even ), the possibility that this medication dose and/or frequency may need to be adjusted over time in consultation with Dr. Camacho. The patient verbalized an understanding of the need for ongoing medical and psychiatric monitoring on an interval basis. At this time, the patient verbalizes full consent to initiate/continue and understands the benefits and risks and wishes to proceed with full, informed consent. - supportive, insight-oriented counseling provided in the office today. - the patient is not participating in therapy. Referral provided to therapist office today. 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 This was apparently of acute onset following a hernia repair, however has continued to exhibit progression over the last several years. She has already completed a fairly comprehensive workup looking for reversible causes of ataxia, which has been unrevealing to date, especially with a quite normal MRI of the brain. This raises 3 primary possibilities. The most likely is that she has a spinocerebellar ataxia, whic fits best with her current examination. However, her report that this started acutely would not fit well with an SCA. The second is that she may have a cerebellar subtype of multiple systems atrophy. This also would not be expected to start acutely, and she does not have any dysautonomia or parkinsonism to further suggest this. The other option is that she may have had an unusual reaction to anesthesia or a nutritional deficiency around the time of surgery, especially if she was not eating or drinking well following her procedure. However, she does not have any lingering nutritional deficiencies likely to cause these symptoms on her current labs despite the ongoing progression of her symptoms. In any event, reversible causes of her symptoms have essentially been ruled out at this point. The treatment of ataxia is supportive, with PT and OT being the mainstays to prevent injury due to ataxia and improve quality of life. I will order home health PT and OT to return and continue working with her. Given her family situation with multiple children and grandchildren, she is interested in genetic testing for SCA and so I will refer her to our genetics clinic to further discuss this possibility. She will plan to follow up with Dr. Pearson, though I will also be happy to follow along with her as much as is needed. 1. PT, OT through 2. Genetics referral 3. Return prn GERD (gastroesophageal reflux disease) 8 Assessment & Plan (03/30/2018 5:16 AM CDT): Cont home PPI Hypothyroidism 03/30/2018 Assessment & Plan (08/31/2019 4:34 PM BISQUE CLEANER): Known h/o on levothyroxine at home - Continue levothyroxine 75 mcg - Check TSH -- WNL Assessment & Plan (08/28/2019 10:36 AM BISQUE CLEANER): Known h/o on levothyroxine at home - Continue levothyroxine 75 mcg - Check TSH -- WNL Assessment & Plan (03/30/2018 5:25 AM CDT): Has not taken home levothyroxine in 1 week as ran out. Hx of noncompliance. TSH elevated to 31.75, however, Free T3 wnl at 1.5 - will continue levo 125 mcg. - can recheck TSH in 2-3 days to see if down trending Insomnia 03/30/2018 Assessment & Plan (04/05/2019 11:57 AM CDT): Chronic, persistent. Start amitriptyline 50 mg at bedtime. Monitor at interval. Malnutrition 03/30/2018 Assessment & Plan (03/30/2018 5:12 AM CDT): See plan as above. MDD (major depressive disord er), recurrent severe, without psychosis 03/29/2018 Assessment & Plan (03/30/2018 10:04 PM CDT): - Continue mirtazapine 15mg qHs. - Will consider admission to inpatient psychiatry vs outpatient follow up at cancer psychiatry. Assessment & Plan (03/30/2018 5:32 AM CDT): Current Major Depressive Episode. Patient has a recent diagnosis of MDD. Currently endorses >2 weeks of daily persistent low mood, anhedonia, anorexia and weight loss, daily insomnia, anergia, worthlessness/hopelessness, and poor concentration. Patient endorses fear of dying in the setting of her weight loss but denies SI and has no wish to . On exam patient is AOx4, has dysthymic affect, anixous distress and easy tearfulness/crying. Symptoms and signs at this time are most consistent with a major depressive episode in s/o MDD. Exam is not suggestive of delirum and patient does not report symptoms consistent wtih delirium, however, will need colateral information and more monitoring for fluctuations to rule out. Of note, TSH is elevated in the s/o of patient missing one week of her levothyroxine medication, however, her T3 remains wnl thus would not explain her ongoing depressive symptoms that have been occuring for more than 2 weeks. - gather colateral information from family in the AM - formal psychiatry consult in AM - delirum precautions and ramelton for delirum prophylaxis and sleep. will avoid sedating medications. - will continue patient's home mirtazpine for now until formal psychiatric assessment (was started during recent hospitlization). Have discontinued patient's xanax as she states that she does not take and has not found it useful (developed oversedated and n/v). Vitamin D deficiency 12/29/2017 Acute gastric ulcer without hemorrhage or perfor ation 12/19/2017 Lower esophageal ring ([place]) 12/19/2017 S/P hernia repair 12/15/2017 Intractable cyclical vomiting with nausea 2017 Hyponatremia 12/15/2017 Hypokalemia 12/15/2017 Severe protein-calorie malnutrition 12/15/2017 Functional diarrhea 12/06/2017 Generalized abdominal pain 12/06/2017 Diarrhea 12/06/2017 Epigastric pain 12/06/2017 Abdominal hernia 09/08/2017 Intestinal obstruction 08/16/2017 Malignant neoplasm of both b reasts in female, estrogen receptor negative 01/30/2014 Overview (03/30/2018): Left breast invasive ductal carcinoma, status post left modified radical mastectomy in 2010. ER positive at 1%, AL negative, HER-2/macy negative. T1c N1 M0. Maximum dimension 1.7 cm. One lymph node positive from left axilla May 2011 but 10 lymph nodes negative at time of axillary dissection in June 2011. Received adjuvant chemotherapy and radiation therapy. Was started on anastrozole in 2011 which was discontinued several months ago in 2017. CT chest without contrast 02/10/2018 showed no evidence of metastatic disease. Right breast cancer T2 N1 M0, status post lumpectomy in 1998. ER negative, AL negative. Adjuvant chemotherapy and radiation therapy. Positive BRCA1 mutation. S/p bilateral mastectomy and total abdominal hysterectomy and bilateral salpingo-oophorectomy. Assessment & Plan (03/30/2018 5:23 AM CDT): Currently in remission. Failure to thrive in adult Assessment & Plan (03/30/2018 5:44 AM CDT): Patient has had at two medical hospitalization in the last 2 months for malnutrition/anorexia: 1)[facility] from 02/20 - 03/01 during which an extensive work up was done but no organic cause were identified. Patient required tubes feeds for nurition. Etiology was thought to be 2/2 MDD. Patient was offered voluntary psychiatric admission but declined and did not meet involuntary criteria. Plan was for outpatient f/u through psych oncology clinic. 2) [facility] from 03/16- 03/21 for faliure to thrive. Evaluated by GI team who felt presentation was not consistent with organic pathology and felt most likely 2/2 depression. Was started on mirtazpine and marinol to stimular appetite. Patient reports a 75 lb weight loss since 11/2017. Within our system 60.5 kg January, now at 56.7. Continues to have decreased appetite, poor nutrition and generalized weakness, currently not ambulatory for last 2-3 weeks. Agree with previous providers that patient's malnutrition and FTT is most likely secondary to MDD as previously medical work ups have been negative for organic etiologies and patient meets criteria for MDE and best explain patient's malnutrition, anorexia, weakness and anergia. - continue home marinol for now - will r/o refeeding syndrome and any nutritional deficienes: Mg, Ph, Ravi, zinc, folate, b12 - supplementing meals with insure - speech and dietary consult - psychiatric consult in AM Generalized weakness Assessment & Plan (03/30/2018 5:15 AM CDT): Neurological exam nonfocal on presentation. This has been a chronic ongoing problem and previous neurological assessment/work up was negative. Has refused placement in the past. Likely occurring the setting of deconditioning, multiple hospitalization, poor nutrition and MDD. - PT/OT Failure to thrive (0-17) Pancytopenia Osteoporosis Hypocalcemia Hyperbilirubinemia Electrolyte abnormality Abnormal CT lung screening Resolved Problems Problem Noted Date Diagnosed Date Resolved Date UTI (urinary tract infection) 03/30/2018 03/30/2018 Assessment & Plan (03/30/2018 5:17 AM CDT): patient denies any infectious symptoms. UA notable for 3+ bacteria and wbcs 21- 50. afebrile in ED, VSS. S/p 1x doseof CTX. - urine cx pending - continue CTX for 3 day course. Delirium 03/30/2018 03/31/2018 Assessment & Plan (03/30/2018 10:01 PM CDT): 47 year old female w/ prior psychiatric history of major depressive disorder who was recently discharged from [facility] in February during which she developed delirium with visual hallucinations presents with self reported 4 month history of low mood, crying spells, anhedonia, anergia, insomnia, poor appetite with decreased intake, hopelessness, poor concentration, and psychomotor retardation concerning for major depressive episode. Given patient's history and collateral from chart review and her , it is likely patient continues to be in a major depressive episode. However, this cannot be fully evaluated currently as there is great concern for delirium currently given patient's poor memory with inability to remember prior psychiatric contact or medications and as assessed on mental status exam, poor concentration as assessed on mental status exam, and difficulty with calculations concerning for cognitive impairment. Her psychomotor slowing, withdrawal, disturbed sleep habits, irritability, and low mood may also be associated or exacerbated by delirium though these symptoms have previously been present in her major depressive episodes. She is high risk for delirium given poor intake, weight loss, electrolyte abnormalities, and suspected urinary tract infection. Plan: 1) Please initiate standard delirium precautions: - Continue to assess for and treat underlying causes/contributors to delirium. - Avoid/minimize deliriogenic medications, including benzodiazepines, opiates, anticholinergics, antihistamines - Attempt to maximally orient the patient via sunlight, clocks, family, staff, sign with date, etc. Attempt to decrease excess environmental stimuli 2) Continue mirtazapine 15mg qHs for major depressive disorder and appetite stimulation. 3) Continue Ramelteon 8mg qHs as needed for sleep. 4) Will consider admission to inpatient psychiatry vs outpatient follow up at cancer psychiatry. Patient and family are reluctant. Constipation 11/04/2011 12/06/2017 Overview (01/14/2017): CONSTIPATION NOS Immunizations Immunization Administration Dates Next Due Influenza, Quadrivalent, Spl it, Preservative Free, Intramuscular 07/10/2019,07/10/2019 Influenza, Trivalent, IM (MDV) 10/25/2013 Influenza, Unspecified 10/25/2013 Surgical History Surgery Date Site/Laterality Comments TUBAL LIGATION Bilateral tubal ligation HYSTERECTOMY Hysterectomy THYROIDECTOMY 10/10/2003 - 10/09/2004 Thyroidectomy CHOLECYSTECTOMY 10/10/1997 - 10/09/1998 Cholecystectomy HYSTERECTOMY 10/10/1998 - 10/09/1999 Hysterectomy MASTECTOMY Bilateral Mastectomy OTHER SURGICAL HISTORY Lap assisted subtotal colectomy w/ ileostomy, partial omentectomy 11/02/12 OTHER SURGICAL HISTORY breast reconstructions HERNIA REPAIR 10/10/2015 - 10/09/2016 ILEOSTOMY 10/10/2012 - 10/09/2013 Right for severe constipation 2/2 IBS Medical History Medical History Date Comments Hx Other Medical breast cancer s /p mastectomy and chemotherapy Hypothyroidism hypothyroidism Hx Other Medical BREAST CANCER S /P MASTECTOMY Tachycardia Colon immotility Cancer (HCC) breast Arthritis Hernia of abdominal cavity 11/15/2017 Pancytopenia (HCC) Anxiety Depression Skin cancer 05/21/2020 [place] Cell Can cer PONV (postoperative nausea a nd vomiting) last surgery 2013 Motion sickness BRCA1 gene mutation positive 12/25/2020 Family History Medical History Relation Name Comments Diabetes Brother 1 COPD Father Autism Grandchild 1 Autism Grandchild 2 nonverbal Lung disease Maternal Grandfather [place] Breast cancer Maternal Grandmother Breast cancer Mother of brain metastasis No Known Problems Paternal Grandfather Breast cancer Paternal Grandmother COPD Sister Ataxia Neg Hx Relation Name Status Comments Brother 1 Alive Brother 2 Alive Daughter Nasima Alive Father (Age 55) Grandchild 1 Alive Grandchild 2 Alive Maternal Grandfather Maternal Grandmother (Age 75) Mother (Age 42) Paternal Grandfather Paternal Grandmother (Age 75) Sister Alive Son Rg Alive Social History Tobacco Use Types Packs/Day Years Used Date Smoking Tobacco: Never Smokeless Tobacco: Never Alcohol Use Standard Drinks/Week Comments No 0 (1 standard drink = 0.6 oz pur e alcohol) Comments No Sex and Gender Information Value Date Recorded Sex Assigned at Not on file Legal Sex Female 2:52 PM BISQUE CLEANER Gender Identity Not on file Sexual Orientation Not on file 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 Not on file Not on file Not on file Obstetrics History Last Filed Vital Signs Vital Sign Reading Time Taken Comments Blood Pressure 132/84 11/16/2024 10:16 AM BISQUE CLEANER Pulse 86 11/16/2024 10:16 AM BISQUE CLEANER Temperature 36.6 C (97.9 F) 11/16/2024 10:16 AM BISQUE CLEANER Respiratory Rate 18 11/16/2024 10:16 AM BISQUE CLEANER Oxygen Saturation 98% 11/16/2024 10:16 AM BISQUE CLEANER Inhaled Oxygen Concentration - - Weight 68.9 kg (152 lb) 11/16/2024 10:16 AM BISQUE CLEANER Height 157.5 cm (5' 2) 11/16/2024 10:16 AM BISQUE CLEANER Body Mass Index 27.8 11/16/2024 10:16 AM BISQUE CLEANER Plan of Treatment Health Maintenance Due Date Last Done Comments Breast Cancer Screening-Mammogram 1969 Colon Cancer Screening-Colonoscopy 1969 DTaP/Tdap/Td Vaccine (1 - Tdap) 1980 Hepatitis B Screening 1987 Regular Well Visit/Exam 18-64 1987 Depression Screening 12/06/2018 12/06/2017 Zoster Vaccine (1 of 2) 2019 Influenza Vaccine (Season Ended) 2025 07/12/2020, 07/10/2019, 07/10/2019, Additional history exists Hepatitis C Screening Completed 03/24/2020 , 01/27/2016, 04/20/2013 Pneumococcal vaccine <65 Aged Out No longer eligible based on patient's age to complete this topic Medical Devices Implanted Type Area Armature Winder Repairer Device Identifier Shelf Expiration Date Model / Serial / Lot Graft Flexhd P Thk 9nee49fm X0.8-1.4mm - [id number] - [id number] Implanted:Qty: 1 on 11/14/2017 by Willem Padilla MD at [facility] Mesh N/A: Abdomen Musculoskeletal Transplant 06/08/2020 [id number] / [id number] / Description:128 total sq cm 96 sq cm / 8 x 12 cm parastomal hernia 32 sq cm / 4 x 8 cm incisional hernia Procedures Procedure Name Priority Date/Time Associated Diagnosis Comments HEPATITIS PANEL, ACUTE Routine 03/24/2020 12:04 PM CDT Elevated liver function tests Thrombocytopenia, unspecified from Last 3 Months or Most Recently Relevant to Health Maintenance Results * Hepatitis panel, acute (03/24/2020 12:04 PM CDT) Hep A IgM Nonreactive Nonreactive [facility] Comment: Interpretive Data: If Hep A IgM Ab is reported as Equivocal, a new sample should be drawn in two weeks for testing. Current interpretive data was last revised on 19. Hep B core IgM Nonreactive Nonreactive [facility] Comment: Interpretive Data If HepB Core IgM Ab is reported as Equivocal, a new sample should be drawn in two weeks for testing. Current interpretive data was last revised on 19. Hep C Ab Nonreactive Nonreactive [facility] Comment: Interpretive Data Nonreactive: Antibodies to HCV not detected. Does NOT exclude the possibility of recent exposure to HCV. Equivocal: Equivocal for HCV antibodies. Supplemental molecular testing will be automatically performed to determine infection status in accordance with current CDC screening recommendations. Reactive: Positive for HCV antibodies. This may represent current or past HCV infection. Supplemental molecular testing will be automatically performed to determine current infection status in accordance with current CDC screening recommendations. Interpretive data was last revised on 2019. HepBsAg Nonreactive Nonreactive [facility] Blood specimen (specimen) 03/24/2020 12:04 PM CDT 03/24/2020 1:58 PM CDT Angel Rogers MD LAB MICROBIOLOGY - GENERAL ORDERABLES Final Result [facility] [address] [address] Department of Laboratories [place], [place] [id number] from Last 3 Months or Most Recently Relevant to Health Maintenance Insurance [facility] MEDICARE ADVANTAGE IDPA MEDICARE [facility] MEDICARE ADVANTAGE IDPA [facility] MEDICARE ADVANTAGE Advance Directives For more information, please contact: [phone] Documents on File Type Date Recorded Patient Personal Computer Network Analyst Expl anation ADVANCE DIRECTIVE 03/22/2018 10:30 AM 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 * Full Code (Latest Code Status on File) Date Activated Date Inactivated Comments 08/31/2019 4:15 PM 09/05/2019 9:47 PM * Full Code Date Activated Date Inactivated Comments 08/27/2019 1:45 PM 08/29/2019 2:44 PM * Full Code Date Activated Date Inactivated Comments 03/30/2018 1:26 AM 04/01/2018 6:12 PM * Full Code Date Activated Date Inactivated Comments 03/16/2018 2:41 PM 03/21/2018 8:49 PM * Full Code Date Activated Date Inactivated Comments 03/16/2018 2:15 PM 03/16/2018 2:41 PM Care Teams Biological Chemist Relationship Specialty Start Date End Date Jaimie Smith MD [address] [facility] [address] [place] [address] PCP - General Internal Medicine 03/24/20 Kurtis Tyson MD Surgeon Ophthalmology 04/02/19 Helen Sweeney MD [address] [place] [address] Referring Physician Ophthalmology 04/02/19 Leroy Cotton MD 1224 [facility] [address] [place], [place] [address] Referring Physician Dermatology 12/06/19 [place] [address] [facility] [address] [place] [address] Consulting Physician Pulmonary Disease 03/24/20 Curt Layne MD [address] [facility] [address] [place] [address] Consulting Physician Gastroenterology 08/14/21 Brayden James MD [address] [facility] [address] [place] [address] Consulting Physician Medical Oncology 11/10/22
--- OUTSIDE RECORDS SUMMARY | 2025-04-16 16:26 | XMS_ITS | Encounter Summary ---
Author Organization [facility] Address [address] [place] [address] Phone Care Team Providers Care Metal Cleaner Name Role Phone Kurtis Tyson MD Unavailable [phone] Helen Sweeney MD Unavailable [phone] Leroy Cotton MD Unavailable [phone] Niles Valencia MD Unavailable Jaimie Smith MD Primary Care Provide r Дмитрий Pearson MD PhD Unavailable [phone] Curt Layne MD Unavailable Carolina Lutz RN Unavailable Brayden James MD Unavailable Encounter Details Date Type Department Care Team (Latest Contact Info) Description 06/03/2022 Orders Only [facility] Scanning, Provider Social History Tobacco Use Types Packs/Day Years Used Date Smoking Tobacco: Never Smokeless Tobacco: Never Alcohol Use Standard Drinks/Week Comments No 0 (1 standard drink = 0.6 oz pur e alcohol) Comments No Sex and Gender Information Value Date Recorded Sex Assigned at Not on file Legal Sex Female 2:52 PM ENTRY LEVEL 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 Gender Identity Not on file Sexual Orientation Not on file 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 Not on file Not on file Not on file documented as of this encounter Plan of Treatment Not on file documented as of this encounter Procedures Procedure Name Priority Date/Time Associated Diagnosis Comments SCAN - RADIOLOGY/IMAGING 06/03/2022 documented in this encounter Results * SCAN - RADIOLOGY/IMAGING (06/03/2022) Anatomical Region Laterality Modality Other us Provider Scanning Final Result documented in this encounter Visit Diagnoses Not on filedocumented in this encounter Care Teams Metal Cleaner Relationship Specialty Start Date End Date Jaimie Smith MD 2043 [facility] [address] [place] [address] PCP - General Internal Medicine 03/24/20 Kurtis Tyson MD Surgeon Ophthalmology 04/02/19 Helen Sweeney MD [address] [place] [address] Referring Physician Ophthalmology 04/02/19 Leroy Cotton MD 1224 [facility] [address] [place] [address] Referring Physician Dermatology 12/06/19 [place] [address] [facility] [address] [place] [address] Consulting Physician Pulmonary Disease 03/24/20 Дмитрий Pearson MD PhD 2043 [facility] [address] [place] [address] Consulting Physician Neurology 08/11/21 10/09/22 Curt Layne MD 2043 [facility] [address] [place] [address] Consulting Physician Gastroenterology 08/14/21 Carolina Lutz RN 4590 [facility] [address] [place] [address] Hadoop Analyst 06/25/22 Brayden James MD [address] [place] [address] Consulting Physician Medical Oncology 11/10/22 documented as of this encounter
--- OUTSIDE RECORDS SUMMARY | 2025-04-16 16:26 | XMS_ITS | Encounter Summary ---
Author Organization [facility] Address [address] [facility] [place] [address] Care Team Providers Care Scarrer Name Role Phone Everardo Cori Bravo SAFETY COUNSELOR-CASUALTY CLAIMS SUPERVISOR Primary Care Provider Skylar Kc MD Primary Care Provider Unavaila ble Cori Mcgee SAFETY COUNSELOR-CASUALTY CLAIMS SUPERVISOR Primary Care Provider Skylar Kc MD Unavailable Unavailable Marquita Umanzor RN Unavailable [phone] Monserrat Smith MD Primary Care Provider Encounter Details Date Type Department Care Team (Late st Contact Info) Description 05/15/2018 Ophth Exam [facility] [address] [place] [address] Fidelina Tran MD [address] [place] [address] Social History Tobacco Use Types Packs/Day Years Used Date Smoking Tobacco: Never Smokeless Tobacco: Never Alcohol Use Standard Drinks/Week Comments No 0 (1 standard drink = 0.6 oz pur e alcohol) Comments No Sex and Gender Information Value Date Recorded Sex Assigned at Not on file Legal Sex Female 7:51 AM COMPOSITION INSTRUCTOR Gender Identity Not on file Sexual Orientation [...] of Assessment Author Yes 05/10/2018 9:36 PM Rsahard Montiel RN * Does person have difficulty doing errands alone? Answer Date of Assessment Author Yes 05/10/2018 9:36 PM Rasahrd Montiel RN documented as of this encounter Mental Status * Does person have difficulty concentrating/remembering/making decisions? Answer Entry Date Author No 05/10/2018 8:50 PM Rashard Montiel RN documented in this encounter Plan of Treatment Not on file documented as of this encounter Visit Diagnoses Not on filedocumented in this encounter Care Teams Scarrer Relationship Specialty Start Date End Date Cori Mcgee APRN-CNP PCP - General Nurse Practitioner Family 05/10/1805/15 Skylar Kc MD PCP - General 05/16/18 06/13/18 Cori Mcgee APRN-CNP PCP - General 06/14/18 06/10/22 Monserrat Smith MD [address] [id number] PCP - General 06/11/22 Skylar Kc MD Internal Medicine 7/18/18 Marquita Umanzor RN Mailroom Associate 05/11/18 documented as of this encounter
--- OUTSIDE RECORDS SUMMARY | 2025-04-16 16:26 | XMS_ITS | Encounter Summary ---
Author Organization [facility] Address [address] [facility] [place] [address] Care Team Providers Care Chef Saucier Name Role Phone Skylar Kc MD Unavailable Unavailable Marquita Umanzor RN Unavailable [phone] Monserrat Smith MD Primary Care Provider Encounter Details Date Type Department Care Team (Late st Contact Info) Description 02/07/[address] [facility] - DermPath Lab [address] [facility], [place] [id number] Leroy Cotton MD [address] [address] Social History Tobacco Use Types Packs/Day Years Used Date Smoking Tobacco: Never Smokeless Tobacco: Never Alcohol Use Standard Drinks/Week Comments No 0 (1 standard drink = 0.6 oz pur e alcohol) Comments No Sex and Gender Information Value Date Recorded Sex Assigned at Not on file Legal Sex Female 7:51 AM CHIEF ENGINEER RESEARCH Gender Identity Not on file Sexual Orientation Not on file documented as of this encounter Functional Status * Is person deaf or have serious hearing difficulty? Answer Date of Assessment Author No 05/17/2018 11:39 AM CDT Benedict Stallings RN * Is person blind or have serious difficulty seeing? Answer Date of Assessment Author Yes 05/17/2018 11:39 AM CDT Benedict Stallings RN * Does person have serious difficulty walking/climbing stairs? Answer Date of Assessment Author Yes 05/17/2018 11:39 AM CDT Benedict Stallings RN * Does person have difficulty dressing/bathing? Answer Date of Assessment Author Yes 05/17/2018 11:39 AM ANIYAHT Benedict Stallings RN * Does person have difficulty doing errands alone? Answer Date of Assessment Author Yes 05/17/2018 11:39 AM ANIYAHT Benedict Stallings RN documented as of this encounter Mental Status * Does person have difficulty concentrating/remembering/making decisions? Answer Entry Date Author Yes 05/17/2018 11:39 AM ANIYAHT Benedict Stallings RN documented in this encounter Plan of Treatment Not on file documented as of this encounter Procedures Procedure Name Priority Date/Time Associated Diagnosis Comments DERMATOPATHOLOGY Routine 02/06/2025 12:0 0 AM CDT documented in this encounter Results * DERMATOPATHOLOGY (02/06/2025 12:00 AM CDT) Case Report Dermatopathology Report Case: [id number] Authorizing Provider: Leroy Cotton MD Collected: 02/06/2025 12:00 AM Ordering Location: [facility] - Received: 02/07/2025 12:03 PM DermPath Lab Pathologist: Digna Huff MD Specimen: Skin, upper chest-left of mid 2:24 PM CDT DERMATOPATHOLOGY LABORATORY Final Diagnosis Specimen A. 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 The specimen consists of a shave biopsy measuring 4x3x1 mm. Jar 0. 2:24 PM CDT DERMATOPATHOLOGY LABORATORY Microscopic Description Specimen A. SKIN, upper chest-left of mid: There is a proliferation of monotonous polyhedral cells containing small duct-like spaces. 2:24 PM CDT DERMATOPATHOLOGY LABORATORY Disclaimer An external and internal positive and negative controls are appropriate for the histochemical, immunohistochemical and immunofluorescence stain(s) in this case (if any), except where stated explicitly. The performance characteristics of the stain(s) cited in this report were developed and its performance characteristic determined by the Dermatopathology Laboratory at [facility], directed by Dr. Dima Shaver. These tests need not be, and therefore are not, approved by the [place] Food and Drug Administration. The tests are used for clinical purposes. Billing Codes Specimen Charges Stain Charges 68750 1 2:24 PM CDT DERMATOPATHOLOGY LABORATORY Embedded Images 2:24 PM CDT DERMATOPATHOLOGY LABORATORY Pathology/Cytolog y TISSUE SPECIMEN FROM SKIN / Unknown 02/06/2025 02/07/2025 12:03 PM CDT Leroy Cotton MD LAB - PATHOLOGY/CYTOLOGY ORDERAB LES Final Result DERMATOPATHOLOGY LABORATORY [facility] - Department of Dermatology [facility] Medicine [address] [place] [address], [address] [phone] documented in this encounter Visit Diagnoses Not on filedocumented in this encounter Care Teams Chef Saucier Relationship Specialty Start Date End Date Monserrat Smith MD [address] [phone] PCP - General 06/11/22 Skylar Kc MD Internal Medicine 04/26/18 Marquita Umanzor RN Costing Manager 05/11/18 documented as of this encounter
--- OUTSIDE RECORDS SUMMARY | 2025-04-16 16:26 | XMS_ITS | Encounter Summary ---
Author Organization [facility] Address [address] [place] [address] Phone Care Team Providers Care Potato Grader Name Role Phone Elke Perrin MD Unavailable [phone] [facility] MD Unavailable Cori Mcgee NP Primary Care Provider [phone] Dipak Ramsey MD Unavailable [phone] Kurtis Tyson MD Unavailable [phone] Helen Sweeney MD Unavailable James Reece MD Unavailable Daniella Elmore MD Unavailable [phone] Osorio Camacho MD Unavailable Cori Mcgee QUALITY NURSE Primary Care Provider [phone] Unknown, Notinfile Primary Care Provider Unavail able Unknown, Notinfile Primary Care Provider Unavail able Unknown, Notinfile Primary Care Provider Unavail able Leroy Cotton MD Unavailable [phone] Niles Valencia MD Unavailable [phone] Jaimie Smith MD Primary Care Provide r Дмитрий Pearson MD PhD Unavailable [phone] Osorio Munoz MD Unavailable [phone] Peewee Palma MD PhD Unavailable Curt Layne MD Unavailable Carolina Lutz RN Unavailable Brayden James MD Unavailable Encounter Details Date Type Department Care Team (Latest Contact Info) Description 03/19/2019 Orders Only [facility] Scanning, Provider Social History Tobacco Use Types Packs/Day Years Used Date Smoking Tobacco: Never Smokeless Tobacco: Never Alcohol Use Standard Drinks/Week Comments No 0 (1 standard drink = 0.6 oz pur e alcohol) Comments No Sex and Gender Information Value Date Recorded Sex Assigned at Not on file Legal Sex Female 2:52 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 Gender Identity Not on file Sexual Orientation Not on file 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 Not on file Not on file Not on file documented as of this encounter Plan of Treatment Not on file documented as of this encounter Procedures Procedure Name Priority Date/Time Associated Diagnosis Comments SCAN - RADIOLOGY/IMAGING 03/19/2019 documented in this encounter Results * SCAN - RADIOLOGY/IMAGING (03/19/2019) Anatomical Region Laterality Modality Other us Provider Scanning Final Result documented in this encounter Visit Diagnoses Not on filedocumented in this encounter Care Teams Potato Grader Relationship Specialty Start Date End Date Cori Mcgee NP PCP - General 07/18/18 04/22/19 Cori Mcgee NP PCP - General 04/24/19 07/24/19 Unknown, Notinfile PCP - General 07/25/19 08/27/19 Unknown, Notinfile PCP - General 08/29/19 03/23/20 Unknown, Notinfile PCP - General 08/28/19 08/28/19 Jaimie Smith MD [address] [place] [address] PCP - General Internal Medicine 03/24/20 Elke Perrin MD Consulting Physician Gastroenterology 03/21/18 08/13/21 Nafisa Son MD Consulting Physician Medical Oncology 03/21/18 04/01/19 Dipak Ramsey MD Referring Physician Otolaryngology 04/02/19 04/22/19 Kurtis Tyson MD Surgeon Ophthalmology 04/02/19 Helen Sweeney MD [address] [place] [address] Referring Physician Ophthalmology 04/02/19 James Reece MD [address] [place] [address] Consulting Physician Pulmonary Disease 04/02/19 0 Daniella Elmore MD [address] [place] [address] Referring Physician Family Medicine 04/23/19 03/23/20 Osorio Camacho MD [address] [place] [address] Consulting Physician Internal Medicine 04/23/19 0 Leroy Cotton MD [address] [address] Referring Physician Dermatology 12/06/19 [place] [address] [address] [facility] [address] [place] [address] Consulting Physician Pulmonary Disease 03/24/20 Дмитрий Pearson MD PhD [address] [facility] [address] [place], [place] [address] Consulting Physician Neurology 08/11/21 10/09/22 Osorio Munoz MD [address] [facility] [address] [place] [address] Consulting Physician Neurology 08/11/21 05/09/22 Peewee Palma MD PhD [address] [facility] [address] [place] [address] Medical Oncologist/Desk Manager Medical Oncology 08/14/21 05/31/22 Curt Layne MD [address] [facility] [address] [place] [address] Consulting Physician Gastroenterology 08/14/21 Carolina Lutz, RN [address] [place] [address] Tanker Serviceman 06/25/22 Brayden James MD [address] [place] [address] Consulting Physician Medical Oncology 11/10/22 documented as of this encounter
--- OUTSIDE RECORDS SUMMARY | 2025-04-16 16:26 | XMS_ITS | Encounter Summary ---
Author Organization [facility] Address [address] [facility] [address] Care Team Providers Care Felt Hat Flanging Operator Name Role Phone Cori Mcgee MEDICARE INTERVIEWER-COMPUTER LAB PARA PROFESSIONAL Primary Care Provider Skylar Kc MD Primary Care Provider Unavaila ble Cori Mcgee MEDICARE INTERVIEWER-COMPUTER LAB PARA PROFESSIONAL Primary Care Provider Skylar Kc MD Unavailable Unavailable Marquita Umanzor RN Unavailable [phone] Monserrat Smith MD Primary Care Provider Encounter Details Date Type Department Care Team (Late st Contact Info) Description 05/12/2018 Ophth Exam [facility] [address] [place] [address] Ciaran Keller MD [address] DEPT OF OPHTHALMOLOGY [place], [place] Social History Tobacco Use Types Packs/Day Years Used Date Smoking Tobacco: Never Smokeless Tobacco: Never Alcohol Use Standard Drinks/Week Comments No 0 (1 standard drink = 0.6 oz pur e alcohol) Comments No Sex and Gender Information Value Date Recorded Sex Assigned at Not on file Legal Sex Female 7:51 AM 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
--- OUTSIDE RECORDS SUMMARY | 2025-04-16 16:26 | XMS_ITS ---
Author Organization [facility] Address [address] [place] [address] Care Team Providers Care Experience Specialist Name Role Phone Kurtis Tyson MD Unavailable [phone] Helen Sweeney MD Unavailable [phone] Leroy Cotton MD Unavailable [phone] Niles Valencia MD Unavailable Jaimie Smith MD Primary Care Provide r Curt Layne MD [facility]available 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 [...] 08/27/2019 Assessment & Plan (08/27/2019 7:33 PM FRONT OFFICE SPECIALIST): Known history on home amitriptyline - Continue home amitriptyline 50 mg qd Postural instability 08/27/2019 Assessment & Plan (09/04/2019 11:15 AM FRONT OFFICE SPECIALIST): Patient with known history of postural instability [...] 09/04 Assessment & Plan (08/28/2019 10:37 AM FRONT OFFICE SPECIALIST): Patient with known history of postural instability [...] 08/27/2019 Assessment & Plan (09/02/2019 9:11 AM FRONT OFFICE SPECIALIST): Patient hx consistent with mechanical fall (walker [...] flexeril Assessment & Plan (08/29/2019 7:22 AM FRONT OFFICE SPECIALIST): Patient hx consistent with mechanical fall (walker [...] 08/27/2019 Assessment & Plan (09/04/2019 11:18 AM FRONT OFFICE SPECIALIST): S/p fall at home. Patient unable to ambulate due to pain. Increased pain with movement of left leg, no TTP on examination - Tylenol 1g q6h scheduled - Flexeril (09/01) 2.5 -> 5 tid -> 10 tid - MSIR 15 mg q4h prn first line -- Holding in the setting of possible obstruction Assessment & Plan (08/28/2019 10:36 AM FRONT OFFICE SPECIALIST): S/p fall at home. Patient unable to [...] 04/05/2019 Assessment & Plan (09/04/2019 11:16 AM FRONT OFFICE SPECIALIST): Known history on home amitriptyline - Discussed [...] 03/30/2018 Assessment & Plan (08/31/2019 4:34 PM FRONT OFFICE SPECIALIST): Known h/o on levothyroxine at home - Continue levothyroxine 75 mcg - Check TSH -- WNL Assessment & Plan (08/28/2019 10:36 AM FRONT OFFICE SPECIALIST): Known h/o on levothyroxine at home - [...] mastectomy in 2010. ER positive at 1%, MO negative, HER-2/macy negative. T1c N1 M0. Maximum [...] status post lumpectomy in 1998. ER negative, MO negative. Adjuvant chemotherapy and radiation therapy. Positive BRCA1 mutation. S/p bilateral mastectomy and total abdominal hysterectomy and bilateral salpingo-oophorectomy. Assessment & Plan (03/30/2018 5:23 AM CDT): Currently in remission. Failure to thrive in adult Assessment & Plan (03/30/2018 5:44 AM CDT): Patient has had at two medical hospitalization in the last 2 months for malnutrition/anorexia: 1)[facility] from 02/20 - 03/01 during which an extensive work up was done but no organic cause were identified. Patient required tubes feeds for nurition. Etiology was thought to be 2/2 MDD. Patient was offered voluntary psychiatric admission but declined and did not meet involuntary criteria. Plan was for outpatient f/u through psych oncology clinic. 2) [facility] from 03/16- 03/21 for faliure to [...] Hyperbilirubinemia Electrolyte abnormality Abnormal CT lung screening Current Treatment and Therapy Plans No current plan information found. Past Treatment and Therapy Plans No past plan information found. Lifetime Dose Tracking * Chemical Lifetime Dose Automatic Entry Manual Entr y DLP 1,144 mGycm 1,144 mGycm 0 mGycm Resolved Problems Problem Noted Date Diagnosed Date [...] depressive disorder who was recently discharged from [facility] in February during which she developed delirium [...]
--- OUTSIDE RECORDS SUMMARY | 2025-04-16 16:26 | XMS_ITS | Data Portability ---
Author Organization [place] - [facility], [employer] Address [address] [place] [address] Care Team Providers Care Apprentice Architect Name Role Phone PAYAL GARNER Medical Oncologist [phone] SANDY SKELTON Psychiatrist Assessment Encounter Date Assessment Date Assessment LastModified by Organization Details LastModified Time 12/19/2018 12/19/2018 Medication Changes D/C Mirtazapine Levothyroxine 50 mcg Has appointment with [facility] Department [phone] Will obtain labs next visit. F/U 2-4 weeks, sooner if needed. Not available 12/19/2018 11:08:20 01/16/2019 01/16/2019 Medication Changes Mirtazapine 7.5 mg labs obtained at visit. Patient has opted to stop taking medications and only taking what she wants even after being counseled on necessity and purpose of the medication. Signs and symptoms of when to seek further care reviewed with patient. Patient to follow up with primary care provider or return to clinic for any worsening signs and symptoms. Patient verbalized agreement and understanding of treatment plan. F/U 2-4 weeks, sooner if needed Not available 01/16/2019 12:15:49 02/13/2019 02/13/2019 Medication Changes Mirtazapine 15 mg q HS D/C Levothyroxine 50 mcg Levothyroxine 75 mcg Signs and symptoms of when to seek further care reviewed with patient. Patient to follow up with primary care provider or return to clinic for any worsening signs and symptoms. Patient verbalized agreement and understanding of treatment plan. F/U 4-6 weeks, sooner if needed [email or web address] Not available 02/13/2019 11:22:06 03/13/2019 03/13/2019 Medication Changes Signs and symptoms of when to seek further care reviewed with patient. Patient to follow up with primary care provider or return to clinic for any worsening signs and symptoms. Patient verbalized agreement and understanding of treatment plan. F/U 4-6 weeks, sooner if needed [email or web address] Not available 03/13/2019 11:40:24 04/10/2019 04/10/2019 Medication Changes Signs and symptoms of when to seek further care reviewed with patient. Patient to follow up with primary care provider or return to clinic for any worsening signs and symptoms. Patient verbalized agreement and understanding of treatment plan. F/U 4 weeks, sooner if needed [email or web address] Not available 04/10/2019 11:27:58 Plan of Treatment Reminders Order Date Submit Date Provider Last Modified By Organization Details Last Modified Time Details Appointments None recorded. Lab CMP, serum or plasma 2018 019 MICHAEL Not available 9 09:17:19 CBC w/ diff 2018 019 [email or web address] Not available 9 09:00:29 TSH + free T4, serum 2018 019 [email or web address] Not available 9 09:00:29 CMP, serum or plasma 2018 019 [email or web address] Not available 9 12:11:10 CBC w/ diff 2018 019 [email or web address] Not available 9 12:11:10 vitamin B1 (thiamine) , blood 2018 019 [email or web address] Not available 9 12:11:10 TSH + free T4, serum 2018 019 [email or web address] Not available 9 12:11:10 Referral None recorded. Procedures None recorded. Surgeries None recorded. Imaging CT, chest + abdomen + pelvis, w/o contrast 2018 019 [facility] (Radiology), [address] [place] [address], [address], 9 16:18:38 Medication Orders mirtazapin e 15 mg tablet 2018 019 INTERFACE Not available 9 11:21:58 levothyrox ine 75 mcg tablet 2018 019 INTERFACE Not available 9 11:21:58 mirtazapin e 7.5 mg tablet 2018 019 [email or web address] Not available 9 11:07:24 buspirone 7.5 mg tablet 2018 019 [email or web address] Not available 9 12:15:04 citalopram 20 mg tablet 2018 019 [email or web address] Not available 9 11:23:41 venlafaxin e 37.5 mg tablet 2018 019 [email or web address] Not available 9 12:14:16 thiamine HCl (vitamin B1) 100 mg tablet 2018 019 Not available 9 12:14:25 ranitidine 150 mg tablet 2018 019 INTERFACE Not available 9 11:02:53 levothyrox ine 50 mcg tablet 2018 019 [email or web address] Not available 9 11:10:40 potassium chloride ER 10 mEq tablet,ext ended release 2018 019 Not available 9 12:14:29 Patient TargetsNo targets recorded. Patient Instructions Encounter Date Encounter Id Patient Instructions Last Modified By Organization Details Last Modified Time 02/13/2019 [id number] recovering from depression: care instructions [email or web address] Not available 02/13/2019 11:26:17 Reason for Referral None Reported. Results Created Date Observation Date Name Description Value Unit Range Abnormal Flag Note LastModifiedBy Organization Detail LastModifiedTime 03/14/20 19 03/14/2019 CMP, serum or plasm a glucose 102 mg/dL 65-99 high Fasti ng refer ence inter zhane For someo ne witho ut known diabe alexi, a gluco se value betwe en 100 and 125 mg/dL is consi stent with predi abete s and shoul d be confi rmed with a follo w-up test. Not Available [address], [address], 03/14/2019 09:17:19 03/14/2003/14/2019 CMP, serum or plasm a urea nitrogen (BUN) 11 mg/dL 7-25 normal Not Available [address], [address], 03/14/2019 09:17:19 03/14/2003/14/2019 CMP, serum or plasm a creatinine 0.99 mg/dL 0.50-1 .10 normal Not Available [address], [address], 03/14/2019 09:17:19 03/14/2003/14/2019 CMP, serum or plasm a eGFR non-afr. iraqi 67 mL/mi n/1.7 3m2 > or = 60 normal Not Available [address], [address], 03/14/2019 09:17:19 03/14/2003/14/2019 CMP, serum or plasm a eGFR 78 mL/mi n/1.7 3m2 > or = 60 normal Not Available [address], [address], 03/14/2019 09:17:19 03/14/2003/14/2019 CMP, serum or plasm a BUN/creatini ne ratio NOT APPLIC ABLE (calc ) 6-22 Not Available [address], [address], 03/14/2019 09:17:19 03/14/2003/14/2019 CMP, serum or plasm a sodium 140 mmol/ L 135-14 6 normal Not Available [address], [address], 03/14/2019 09:17:19 03/14/2003/14/2019 CMP, serum or plasm a potassium 3.7 mmol/ L 3.5-5. 3 normal Not Available [address], [address], 03/14/2019 09:17:19 03/14/2003/14/2019 CMP, serum or plasm a chloride 102 mmol/ L 98-110 normal Not Available [address], [address], 03/14/2019 09:17:19 03/14/2003/14/2019 CMP, serum or plasm a carbon dioxide 28 mmol/ L 20-32 normal Not Available [address], [address], 03/14/2019 09:17:19 03/14/2003/14/2019 CMP, serum or plasm a calcium 9.5 mg/dL 8.6-10 .2 normal Not Available [address], [address], 03/14/2019 09:17:19 03/14/2003/14/2019 CMP, serum or plasm a protein, total 6.8 g/dL 6.1-8. 1 normal Not Available [address], [address], 03/14/2019 09:17:19 03/14/2003/14/2019 CMP, serum or plasm a albumin 4.5 g/dL 3.6-5. 1 normal Not Available [address], [address], 03/14/2019 09:17:19 03/14/2003/14/2019 CMP, serum or plasm a globulin 2.3 g/dL_ (calc ) 1.9-3. 7 normal Not Available [address], [address], 03/14/2019 09:17:19 03/14/2003/14/2019 CMP, serum or plasm a albumin/glob ulin ratio 2.0 (calc ) 1.0-2. 5 normal Not Available [address], [address], 03/14/2019 09:17:19 03/14/2003/14/2019 CMP, serum or plasm a bilirubin, total 2.5 mg/dL 0.2-1. 2 high Not Available [address], [address], 03/14/2019 09:17:19 03/14/2003/14/2019 CMP, serum or plasm a alkaline phosphatase 85 U/L 33-[address] [facility] [address], [address], 03/14/2019 09:17:19 03/14/2003/14/2019 CMP, serum or plasm a AST 18 U/L 10-35 normal Not Available [address], [address], 03/14/2019 09:17:19 03/14/2003/14/2019 CMP, serum or plasm a ALT 13 U/L 6-29 normal Not Available [address], [address], 03/14/2019 09:17:19 03/14/2003/14/2019 CBC w/ auto diff white blood cell count 3.1 thous and/u L 3.8-10 .8 low Not Available [address], [address], 03/14/2019 09:17:20 03/14/2003/14/2019 CBC w/ auto diff red blood cell count 4.59 marco on/uL 3.80-5 .10 normal Not Available [address], [address], 03/14/2019 09:17:20 03/14/2003/14/2019 CBC w/ auto diff hemoglobin 13.1 g/dL 11.7-1 5.5 normal Not Available [address], [address], 03/14/2019 09:17:20 03/14/2003/14/2019 CBC w/ auto diff hematocrit 41.3 % 35.0-4 5.0 normal Not Available [address], [address], 03/14/2019 09:17:20 03/14/2003/14/2019 CBC w/ auto diff MCV 90.0 fL 80.0-1 00.0 normal Not Available [address], [address], 03/14/2019 09:17:20 03/14/2003/14/2019 CBC w/ auto diff MCH 28.5 pg 27.0-3 3.0 normal Not Available [address], [address], 03/14/2019 09:17:20 03/14/2003/14/2019 CBC w/ auto diff MCHC 31.7 g/dL 32.0-3 6.0 low Not Available [address], [address], 03/14/2019 09:17:20 03/14/2003/14/2019 CBC w/ auto diff RDW 14.2 % 11.0-1 5.0 normal Not Available [address], [address], 03/14/2019 09:17:20 03/14/2003/14/2019 CBC w/ auto diff platelet count 136 thous and/u L 140-40 0 low Not Available [address], [address], 03/14/2019 09:17:20 03/14/2003/14/2019 CBC w/ auto diff MPV 9.9 fL 7.5-12 .5 normal Not Available [address], [address], 03/14/2019 09:17:20 03/14/2003/14/2019 CBC w/ auto diff absolute neutrophils 1727 cells /uL 1500-7 800 normal Not Available [address], [address], 03/14/2019 09:17:20 03/14/2003/14/2019 CBC w/ auto diff absolute lymphocytes 1029 cells /uL 850-39 00 normal Not Available [address], [address], 03/14/2019 09:17:20 03/14/2003/14/2019 CBC w/ auto diff absolute monocytes 273 cells /uL 200-95 0 normal Not Available [address], [address], 03/14/2019 09:17:20 03/14/2003/14/2019 CBC w/ auto diff absolute eosinophils 62 cells /uL 15-500 normal Not Available [address], [address], 03/14/2019 09:17:20 03/14/2003/14/2019 CBC w/ auto diff absolute basophils 9 cells /uL 0-200 normal Not Available [address], [address], 03/14/2019 09:17:20 03/14/2003/14/2019 CBC w/ auto diff neutrophils 55.7 % normal Not Available [address], [address], 03/14/2019 09:17:20 03/14/20 19 03/14/2019 CBC w/ auto diff lymphocytes 33.2 % normal Not Available [facility] [address], [address], 03/14/2019 09:17:20 03/14/2003/14/2019 CBC w/ auto diff monocytes 8.8 % normal Not Available [address], [address], 03/14/2019 09:17:20 03/14/2003/14/2019 CBC w/ auto diff eosinophils 2.0 % normal Not Available [address], [address], 03/14/2019 09:17:20 03/14/2003/14/2019 CBC w/ auto diff basophils 0.3 % normal Not Available [address], [address], 03/14/2019 09:17:20 03/14/2003/14/2019 T4, free, serum T4, free 1.5 NG/dL 0.8-1. 8 normal Not Available [address], [address], 03/14/2019 09:17:20 03/14/2003/14/2019 TSH, serum or plasm a TSH 0.65 mIU/L normal Refer ence Range > or = 20 Years 0.40- 4.50 Pregn kelsi Range s First trime ster 0.26- 2.66 Secon d trime ster 0.55- 2.73 Third trime ster 0.43- 2.91 NO COLLE CTION DATE RECEI BUNNY. WE HAVE USED THE DATE THE SPECI MEN WAS RECEI BUNNY BY THIS LABOR ATORY THE COLLE CTION DATE. IF THIS IS INCOR RECT, PLEAS E CONTA CT CLIEN T SERVI GEO. PHONE NUMBE R: [phone] Not Available [address], [address], 03/14/2019 09:17:21 01/17/2001/17/2019 CMP, serum or plasm a glucose 85 mg/dL 65-139 normal Non-f astin g refer ence inter zhane Not Available [address], [address], 01/17/2019 12:31:54 01/17/2001/17/2019 CMP, serum or plasm a urea nitrogen (BUN) 11 mg/dL 7-25 normal Not Available [address], [address], 01/17/2019 12:31:54 01/17/2001/17/2019 CMP, serum or plasm a creatinine 0.91 mg/dL 0.50-1 .10 normal Not Available [address], [address], 01/17/2019 12:31:54 01/17/2001/17/2019 CMP, serum or plasm a eGFR non-afr. iraqi 74 mL/mi n/1.7 3m2 > or = 60 normal Not Available [address] [address] [place], [address], 01/17/2019 12:31:54 01/17/2001/17/2019 CMP, serum or plasm a eGFR 86 mL/mi n/1.7 3m2 > or = 60 normal Not Available [address], [address], 01/17/2019 12:31:54 01/17/2001/17/2019 CMP, serum or plasm a BUN/creatini ne ratio NOT APPLIC ABLE (calc ) 6-22 Not Available [address], [address], 01/17/2019 12:31:54 01/17/2001/17/2019 CMP, serum or plasm a sodium 142 mmol/ L 135-14 6 normal Not Available [address], [address], 01/17/2019 12:31:54 01/17/20 19 01/17/2019 CMP, serum or plasm a potassium 3.9 mmol/ L 3.5-5. 3 normal Not Available [address], [address], 01/17/2019 12:31:54 01/17/20 19 01/17/2019 CMP, serum or plasm a chloride 104 mmol/ L 98-110 normal Not Available [address], [address], 01/17/2019 12:31:54 01/17/2001/17/2019 CMP, serum or plasm a carbon dioxide 25 mmol/ L 20-32 normal Not Available [address], [address], 01/17/2019 12:31:54 01/17/20 19 01/17/2019 CMP, serum or plasm a calcium 9.8 mg/dL 8.6-10 .2 normal Not Available [address], [address], 01/17/2019 12:31:54 01/17/2001/17/2019 CMP, serum or plasm a protein, total 7.3 g/dL 6.1-8. 1 normal Not Available [address], [address], 01/17/2019 12:31:54 01/17/2001/17/2019 CMP, serum or plasm a albumin 4.7 g/dL 3.6-5. 1 normal Not Available [address], [address], 01/17/2019 12:31:54 01/17/2001/17/2019 CMP, serum or plasm a globulin 2.6 g/dL_ (calc ) 1.9-3. 7 normal Not Available [address], [address], 01/17/2019 12:31:54 01/17/20 19 01/17/2019 CMP, serum or plasm a albumin/glob ulin ratio 1.8 (calc ) 1.0-2. 5 normal Not Available [address], [address], 01/17/2019 12:31:54 01/17/2001/17/2019 CMP, serum or plasm a bilirubin, total 1.5 mg/dL 0.2-1. 2 high Not Available [address], [address], 01/17/2019 12:31:54 01/17/2001/17/2019 CMP, serum or plasm a alkaline phosphatase 102 U/L 33-[address] [facility] [address], [address], 01/17/2019 12:31:54 01/17/2001/17/2019 CMP, serum or plasm a AST 17 U/L 10-35 normal Not Available [address], [address], 01/17/2019 12:31:54 01/17/2001/17/2019 CMP, serum or plasm a ALT 11 U/L 6-29 normal Not Available [address], [address], 01/17/2019 12:31:54 01/17/2001/17/2019 CBC w/ auto diff white blood cell count 3.7 thous and/u L 3.8-10 .8 low Not Available [address], [address], 01/17/2019 12:31:54 01/17/2001/17/2019 CBC w/ auto diff red blood cell count 4.83 marco on/uL 3.80-5 .10 normal Not Available [address], [address], 01/17/2019 12:31:54 01/17/20 19 01/17/2019 CBC w/ auto diff hemoglobin 14.2 g/dL 11.7-1 5.5 normal Not Available [address], [address], 01/17/2019 12:31:54 01/17/20 19 01/17/2019 CBC w/ auto diff hematocrit 42.9 % 35.0-4 5.0 normal Not Available [address], [address], 01/17/2019 12:31:54 01/17/20 19 01/17/2019 CBC w/ auto diff MCV 88.8 fL 80.0-1 00.0 normal Not Available [address], [address], 01/17/2019 12:31:54 01/17/20 19 01/17/2019 CBC w/ auto diff MCH 29.4 pg 27.0-3 3.0 normal Not Available [address], [address], 01/17/2019 12:31:54 01/17/20 19 01/17/2019 CBC w/ auto diff MCHC 33.1 g/dL 32.0-3 6.0 normal Not Available [address], [address], 01/17/2019 12:31:54 01/17/20 19 01/17/2019 CBC w/ auto diff RDW 13.7 % 11.0-1 5.0 normal Not Available [address], [address], 01/17/2019 12:31:54 01/17/20 19 01/17/2019 CBC w/ auto diff platelet count 176 thous and/u L 140-40 0 normal Not Available [address], [address], 01/17/2019 12:31:54 01/17/2001/17/2019 CBC w/ auto diff MPV 9.3 fL 7.5-12 .5 normal Not Available [address] [place], [address], 01/17/2019 12:31:54 01/17/2001/17/2019 CBC w/ auto diff absolute neutrophils 1820 cells /uL 1500-7 800 normal Not Available [address] [place], [address], 01/17/2019 12:31:54 01/17/2001/17/2019 CBC w/ auto diff absolute lymphocytes 1476 cells /uL 850-39 00 normal Not Available [address], [address], 01/17/2019 12:31:54 01/17/2001/17/2019 CBC w/ auto diff absolute monocytes 252 cells /uL 200-95 0 normal Not Available [address] [place], [address], 01/17/2019 12:31:54 01/17/2001/17/2019 CBC w/ auto diff absolute eosinophils 133 cells /uL 15-500 normal Not Available [address] [place], [address], 01/17/2019 12:31:54 01/17/2001/17/2019 CBC w/ auto diff absolute basophils 19 cells /uL 0-200 normal Not Available [address] [address] [place], [address], 01/17/2019 12:31:54 01/17/2001/17/2019 CBC w/ auto diff neutrophils 49.2 % normal Not Available [address], [address], 01/17/2019 12:31:54 01/17/2001/17/2019 CBC w/ auto diff lymphocytes 39.9 % normal Not Available [address], [address], 01/17/2019 12:31:54 01/17/20 19 01/17/2019 CBC w/ auto diff monocytes 6.8 % normal Not Available [address], [address], 01/17/2019 12:31:54 01/17/2001/17/2019 CBC w/ auto diff eosinophils 3.6 % normal Not Available [address], [address], 01/17/2019 12:31:54 01/17/2001/17/2019 CBC w/ auto diff basophils 0.5 % normal Not Available [address], [address], 01/17/2019 12:31:54 01/17/2001/17/2019 T4, free, serum T4, free 1.0 NG/dL 0.8-1. 8 normal Not Available [address], [address], 01/17/2019 12:31:55 01/17/2001/17/2019 TSH, serum or plasm a TSH 14.83 mIU/L high Refer ence Range > or = 20 Years 0.40- 4.50 Pregn kelsi Range s First trime ster 0.26- 2.66 Secon d trime ster 0.55- 2.73 Third trime ster 0.43- 2.91 Not Available [address], [address], 01/17/2019 12:31:55 01/17/2001/17/2019 vitam in B1 (thia mine) , blood vitamin B1 (thiamine), serum/plasma , lc/MS/MS TNP * Test not perfo rmed. * * No suita ble speci men recei bunny. * Not Available [facility] [address] [place], [address], 01/17/2019 12:31:56 11/21/19 19 MRI, brain , w/wo contr ast No observ ation record ed. [email or web address] [facility] (Mri, Ct Only) [address], [place], [address], 11/21/2018 17:22:13 11/21/19 19 MRI, lumba r spine , w/o contr ast No observ ation record ed. [email or web address] [facility] (Mri, Ct Only) [address], [place], [address], 11/21/2018 17:22:13 02/20/20 19 02/17/2019 CT, chest + abdom en + pelvi s, w/o contr ast No observ ation record ed. [email or web address] Not Available 2018 11:30:07 03/26/20 19 02/17/2019 CT, chest + abdom en + pelvi s, w/o contr ast No observ ation record ed. [email or web address] Not Available 2018 06:52:40 03/26/20 19 02/17/2019 CT, chest + abdom en + pelvi s, w/o contr ast No observ ation record ed. [email or web address] [facility] (Imaging) [address] [place], [address], 03/27/2019 09:13:25 Result Notes None recorded. Problems Name Problem SNOMED Code Status Onset Date Resolution Date Notes Provider Name and Address Organization Details Recorded Time Anxiety 50213311 Active 2017 Cori Mcgee, SENIOR CLINICAL DATA MANAGER-BC, PMHNP-BC [address] [facility] [place], [address], [place] [facility] 8 13:06:08 Severe recurrent major depression 820677027553 Active 2017 Cori Mcgee SENIOR CLINICAL DATA MANAGER-BC, PMHNP-BC [address] [place], [address], [place] [facility] 8 13:06:24 Hypothyroid ism 04227115 Active 2017 Cori Mcgee SENIOR CLINICAL DATA MANAGER-BC, PMHNP-BC [address] [place], [address], [place] [facility] 8 17:57:25 Hypotension NOS Active 2017 Cori Mcgee SENIOR CLINICAL DATA MANAGER-BC, PMHNP-BC [address] [place], [address], [facility] - [facility] 8 17:58:22 Dysphagia 52475046 Active 2017 KEM DoveP-BC, PMHNP-BC [address] [place], [address], [place] [facility] 8 18:52:23 Moderate recurrent major depression 10711565 Active 2017 KEM DoveP-BC, PMHNP-BC [address] [place], [address], [place] [facility] 8 18:54:04 Nystagmus 515999 Active 2017 Cori Mcgee SENIOR CLINICAL DATA MANAGER-BC, PMHNP-BC [address] [place], [address], [place] [facility] 8 12:17:55 Vitamin D deficiency 67182085 Active 2017 Cori Mcgee SENIOR CLINICAL DATA MANAGER-BC, PMHNP-BC [address] [place], [address], [place] [facility] 8 13:07:25 Pancytopeni a 292743543 Active 2017 Cori Mcgee SENIOR CLINICAL DATA MANAGER-BC, PMHNP-BC [address], [place], [address], [place] [facility] 8 13:13:38 Osteoporosi s 85915166 Active 2017 MADDI Dove-BC, PMHNP-BC [address], [place], [address], [place] [facility] 8 13:15:15 Thiamine deficiency 055814781 Active 2017 KEM DoveP-BC, PMHNP-BC [address], [place], [address], [place] [facility] 8 13:24:08 Loss of appetite 68469595 Active 2017 MADDI Dove-BC, PMHNP-BC [address], [place], [address], [place] [facility] 8 11:20:08 Hypokalemia 20985206 Active 2017 MADDI Dove-BC, PMHNP-BC [address], [place], [address], [facility] - [facility] 8 11:20:20 Gastroesoph ageal reflux disease without esophagitis 346664933 Active 2017 MADDI Dove-BC, PMHNP-BC [address], [place], [address], [place] [facility] 8 11:20:22 Dizziness and giddiness 877236159 Active 2017 KEM DoveP-BC, PMHNP-BC [address], [place], [address], [place] [facility] 8 12:56:37 Muscle weakness 54281513 Active 2017 MADDI Dove-BC, PMHNP-BC [address], [place], [address], [place] [facility] 8 12:47:03 Vertigo 132812701 Active 2018 KEM DoveP-BC, PMHNP-BC [address], [place], [address] [place] [address] 4, [facility] 9 19:24:18 Essential hypertensio n 29240486 Active 2018 KEM DoveP-BC, PMHNP-BC [address] [address], [facility] 9 11:55:50 Headache 84260148 Active 2018 KEM DoveP-BC, PMHNP-BC [address] [address] 4, [facility] 9 12:10:40 Osteoarthri tis 901359006 Active 2018 MADDI Dove-BC, PMHNP-BC [address] [address] 4, [facility] 9 07:23:25 Dyspnea 788617396 Active 2018 KEM DoveBRIDGER, PMHNP-BC [address] [address] 4, [facility] 9 11:30:20 Problem Notes None recorded. Procedures Surgical History Date Name Laterality Status Provider Name and Address Organization Details Recorded Time Tubal Ligation completed MADDI Dove-BC, PMHNP-BC [address] [address], [facility] 05/10/2018 09:13:43 Hysterectomy completed MADDI Dove-BRIDGER, PMHNP-BC [address] [address], [facility] 05/10/2018 09:13:48 Cholecystectomy completed MADDI [place]-BC, PMHNP-BC [address] [address], [facility] 05/10/2018 09:13:56 Removal of thyroid completed Janett sascha Mcgee [facility]-, PMHNP-BC [address], [place], [address] [place] [address], [facility] 05/10/2018 09:14:08 Ileostomy/jejunosto my completed [facility] [address], [place], [address] [place] [address], [facility] 05/10/2018 09:14:26 Bilateral Mastectomy completed Cori Mcgee [facility], PMHNP-BC [address], [place], [address] [place] [address], [facility] 05/10/2018 09:14:46 Hernia Repair completed Cori Mcgee [facility], PMHNP-BC [address], [place], [address] [place] [address], [facility] 05/10/2018 09:15:01 Colon Resection completed Cori Mcgee [facility], PMHNP-BC [address], [place], [address] [place] [address], [facility] 05/10/2018 09:15:47 Imaging Results None recorded. Procedure Notes None recorded. Medical Equipment None Reported. Allergies Allergen ID Allergen Name Allergen Category Reaction Reaction Severity Criticality Documentation Date Start Date Code Code System Note Provider Name and Address Organization Details Recorded Time 930 Dilaudid medicatio n other severe Not available 05/10/2018 07326 3 [facility] 10:26:19 Medications Name Sig Start Date Stop Date Status Note LastModified by Organization Details LastModified Time citalopra m 40 mg tablet TAKE 1 TABLET BY MOUTH EVERY DAY 09/05 completed Not Available Not Available Not Available azithromy cj 250 mg tablet 05/10 completed Not Available Not Available Not Available alprazola m 1 mg tablet Take 1 tablet 3 times a day by oral route as needed for 30 days. 07/11 completed Not Available Not Available Not Available hydrocodo ne 5 mg-acetam inophen 325 mg tablet Take 1 tablet every 8 hours by oral route as needed for 30 days. 11/21 completed Pain Manageme nt Not Available Not Available Not Available prochlorp erazine maleate 5 mg tablet 05/10 completed Not Available Not Available Not Available prednison e 20 mg tablet 05/10 completed Not Available Not Available Not Available thiamine HCl (vitamin B1) 100 mg tablet Take 1 tablet every day by oral route for 30 days. 01/16 completed Not Available Not Available Not Available diphenoxy late-atro pine 2.5 mg-0.025 mg tablet 05/10 completed Not Available Not Available Not Available Nexium 40 mg capsule,d elayed release 06/27 completed Not Available Not Available Not Available potassium chloride ER 10 mEq tablet,ex tended release Take 1 tablet every day by oral route for 30 days. 01/16 completed Not Available Not Available Not Available amitripty line 50 mg tablet Take 1 tablet every day by oral route at bedtime for 30 days. active Not Available Not Available No t Available potassium chloride 20 mEq/15 mL oral liquid 05/10 completed Not Available Not Available Not Available levothyro xine 75 mcg tablet Take 1 tablet every day by oral route before meals for 30 days. active Not Available Not Available No t Available levothyro xine 100 mcg tablet Take 1 tablet every day by oral route for 30 days. 11/27 completed Not Available Not Available Not Available levothyro xine 88 mcg tablet 05/10 completed Not Available Not Available Not Available citalopra m 20 mg tablet Take 1 tablet every day by oral route for 30 days. 04/10 completed Not Available Not Available Not Available lorazepam 0.5 mg tablet 05/10 completed Not Available Not Available Not Available oxycodone -acetamin ophen 10 mg-325 mg tablet 05/10 completed Not Available Not Available Not Available dicyclomi ne 20 mg tablet TAKE 1 TABLET BY MOUTH THREE TIMES DAILY active Not Available Not Available No t Available meclizine 25 mg tablet Take 1 tablet 3 times a day by oral route as needed for 30 days. 09/26 completed Not Available Not Available Not Available levothyro xine 50 mcg tablet Take 1 tablet every day by oral route for 30 days. 02/13 completed Not Available Not Available Not Available hydrocodo ne 7.5 mg-acetam inophen 325 mg tablet Take 1 tablet every 8 hours by oral route as needed for 30 days. active Not Available Not Available No t Available venlafaxi ne 37.5 mg tablet Take 1 tablet twice a day by oral route for 30 days. 01/16 completed Not Available Not Available Not Available mirtazapi ne 30 mg tablet TAKE ONE TABLET BY MOUTH EVERY DAY 10/24 completed Not Available Not Available Not Available levothyro xine 125 mcg tablet Take 1 tablet every day by oral route for 30 days. 06/05 completed Not Available Not Available Not Available ranitidin e 150 mg tablet TAKE ONE TABLET BY MOUTH TWICE DAILY active Not Available Not Available No t Available gabapenti n 300 mg capsule Take 1 capsule 3 times a day by oral route for 30 days. 11/21 completed Not Available Not Available Not Available buspirone 7.5 mg tablet Take 1 tablet twice a day by oral route for 30 days. 01/16 completed Not Available Not Available Not Available alprazola m 2 mg tablet Take 1 tablet twice a day by oral route as needed for 30 days. 10/24 completed Not Available Not Available Not Available mirtazapi ne 15 mg tablet Take 1 tablet every day by oral route at bedtime for 30 days. active Not Available Not Available No t Available gabapenti n 100 mg capsule Take 1 capsule 3 times a day by oral route for 30 days. 09/26 completed Not Available Not Available Not Available neomycin 500 mg tablet 05/10 completed Not Available Not Available Not Available Vitamin D2 1,250 mcg (50,000 unit) capsule Take 1 capsule every week by oral route for 30 days. 01/16 completed Not Available Not Available Not Available ondansetr on 4 mg disintegr ating tablet 05/10 completed Not Available Not Available Not Available sertralin e 50 mg tablet Take 1 tablet every day by oral route for 90 days. active Not Available Not Available No t Available diazepam 5 mg tablet 10/24 completed Not Available Not Available Not Available metoclopr amide 10 mg tablet 05/10 completed Not Available Not Available Not Available Ventolin HFA 90 mcg/actua tion aerosol inhaler 05/10 completed Not Available Not Available Not Available escitalop padilla 10 mg tablet 05/10 completed Not Available Not Available Not Available aripipraz ole 5 mg tablet TAKE 1 TABLET BY MOUTH EVERY NIGHT AT BEDTIME active Not Available Not Available No t Available mirtazapi ne 7.5 mg tablet Take 1 tablet every day by oral route for 30 days. 02/13 completed Not Available Not Available Not Available Lyrica 50 mg capsule Take 1 capsule 3 times a day by oral route for 30 days. 01/16 completed Pain Manageme nt Not Available Not Available Not Available Embeda 20 mg-0.8 mg capsule, extend release, oral only 10/24 completed Not Available Not Available Not Available Vitals Date Recorded Oxygen saturation Oxygen saturation in Arterial blood by Pulse oximetry Heart rate Respiratory rate Body temperature Body weight Systolic And Diastolic Provider Name and Address Organization Details Last Updated DateTime 9 99 % 99 % 111 /min 18 /min 98 [degF] 62146.4 5 g 124/90 mm[Hg] Elizabeth Sepulveda [facility] 9 10:53:07 Date Recorded Heart rate Respiratory rate Oxygen saturation Oxygen saturation in Arterial blood by Pulse oximetry Body temperature Systolic And Diastolic Provider Name and Address Organization Details Last Updated DateTime 9 101 /min 16 /min 100 % 100 % 97.8 [degF] 126/88 mm[Hg] Marely Huizar [facility] 9 11:57:12 Date Recorded Heart rate Respiratory rate Oxygen saturation Oxygen saturation in Arterial blood by Pulse oximetry Body temperature Systolic And Diastolic Provider Name and Address Organization Details Last Updated DateTime 9 99 /min 18 /min 98 % 98 % 98.2 [degF] 120/78 mm[Hg] Marely Gaye [facility] 9 11:09:07 Date Recorded Body height Heart rate Respiratory rate Oxygen saturation Oxygen saturation in Arterial blood by Pulse oximetry Body temperature Systolic And Diastolic Provider Name and Address Organization Details Last Updated DateTime 9 165.1 cm 122 /min 20 /min 99 % 99 % 99.6 [degF] 122/76 mm[Hg] Marely Palomino [facility] 9 11:30:34 Date Recorded Heart rate Respiratory rate Oxygen saturation Oxygen saturation in Arterial blood by Pulse oximetry Body temperature Systolic And Diastolic Provider Name and Address Organization Details Last Updated DateTime 9 124 /min 20 /min 99 % 99 % 98 [degF] 100/60 mm[Hg] Marely DONALD [facility] 9 11:21:10 Social History Question Answer Notes LastModified by Organizat ion Details LastModified Time Tobacco Smoking Status Never Smoker Not Available [employer] 08/05/2020 03:14:00 Do You Have An Advance Directive? No [id number] Information not available 08/05/2020 What Is Your Level Of Caffeine Consumption? None [id number] Information not available 08/05/2020 How Much Tobacco Do You Chew? None [id number] Information not available 08/05/2020 Which Illicit Or Recreational Drugs Have You Used? None [id number] Information not available 08/05/2020 Single Or Multi-level Home/work? Single Level Home Information not available 05/10/2018 Live Alone Or With Others? With Others [email or web address] Information not available 05/10/2018 Marital Status Informatio n not available 05/10/2018 What Was The Date Of Your Most Recent Tobacco Screening? 02/13/2019 [id number] Information not available 08/05/2020 How Many Years Have You Smoked Tobacco? 0 [id number] Information not available 08/05/2020 Sex: Unknown Functional Status Question Answer Note LastModified by Organization D etails LastModified Time What is your level of alcohol consumption? None [id number] Information not available 08/05/2020 Are you able to walk? YESLIMIT [id number] Information not available 08/05/2020 What is your occupation? Disabled [id number] Information not available 08/05/2020 What is your exercise level? None [id number] Information not available 08/05/2020 Mental Status None recorded. Family History Relationship Description Onset Age of this Age Resolved Age Notes LastModified by Organization Details LastModified Time Mother Malignant neoplasm of brain [email or web address] Not available 2017 09:08:31 Father Chronic obstructive pulmonary disease [email or web address] Not available 2017 09:08:42 Sister Chronic obstructive pulmonary disease [email or web address] Not available 2017 09:10:30 Maternal Aunt Family history of breast cancer [email or web address] Not available 2017 09:11:08 Maternal Grandmother Family history of breast cancer [email or web address] Not available 2017 09:11:18 Paternal Uncle Family history of malignant neoplasm [email or web address] Not available 2017 09:11:39 Medical History Condition Response Anxiety Disorder Y Hospitalizations Y Allergies/Hayfever Y Anemia Y Depression Y Chronic pain Y Gynecological HistoryNo gynecological history recorded. Obstetrics History GPAL:G 0 P 0 0 0 0 Past Encounters Encounter ID Performer Location Encounter Start Date Encounter Closed Date Diagnosis/Indication Diagnosis SNOMED-CT Code Diagnosis ICD10 Code Diagnosis Note [id number] FLORESITA Dove, [facility] Main Office [address] [place] [address] 05/10/2018 08:36:28 05/10/2018 18:56:22 Moderate recurrent major depression 01657459 F33.2 Stop Mirtazapin e. Start Citalopram and Abilify for severe depression . Hypothyroidism 27885187 E03.9 Labs ordered. Hypotension NOS 10186352 6 I95.9 Counseled on patient increasing fluid volume. Patient has been drinking minimal fluids and minimal eating. Patient spends most time on couch sleeping. Counseled on exploring other options if cannot get blood pressure to increase. Labs ordered. Anemia 434252078 D64.9 labs ordered Loss of appetite 4838163 6 R63.0 Counseled on necessity of eating. Has been taking Remeron which has not helped with appetite stimulatio n. Counseled on other options which will be explored at next visit after getting other testing done for neurology to eval and tx with MRI. Anxiety 48298946 F41.9 Counseled patient that the dosage of Xanax is far beyond the maximum amount. Maximum amount of Xanax daily is 4 mg. Patient had previously been receiving 2mg TID. Counseled that will add other medication s to help with anxiety, but will not continue the current dosage of Xanax. Dysphagia 06268894 R13.1 0 Counseled on possibly seeing GI for dysphagia after current eval and tx is done. Will look at having speech therapy evaluate also. [id number] FLORESITA Dove, [facility]- Main Office [address] [place] [address] 05/31/2018 14:18:55 06/01/2018 13:41:46 Moderate recurrent major depression 03936138 F33.2 [facility] d/c'd Abilify and Citalopram .Remeron for appetite stimulant and depression .Patient had restarted medication s upon checking self out AMA at [place]. Stopped medication as patient stated it was making her sick. Counseled patient to restart Abilify to see if it continued making her sick. Patient instructed to contact office should she get sick again from medication . Hypothyroidism 07014368 E03.9 Labs ordered. Hypotension NOS 12414084 6 I95.9 Counseled on patient increasing fluid volume. Patient has been drinking minimal fluids and minimal eating. Patient spends most time on couch sleeping. Counseled on exploring other options if cannot get blood pressure to increase. Labs ordered. Anemia 883825711 D64.9 labs ordered Loss of appetite 6658765 6 R63.0 Counseled on necessity of eating. Has been taking Remeron which has not helped with appetite stimulatio n. Counseled on other options which will be explored at next visit after getting other testing done for neurology to eval and tx with MRI. Counseled to drink Ensure TID and continue eating. Patient has serious malnutriti on. Anxiety 66624887 F41.9 Patient has severe anxiety. Was taking more than recommende d dosage of Xanax which was prescribed by previous provider. Decreased to appropriat e amount. 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 Continue with Citalopram . Helping with depression . Hypothyroidism 35114389 E03.9 Continue with regimen. Loss of appetite 8560301 6 R63.0 Continue with medication as patient is tolerating and doing well with increasing appetite. Anxiety 83420280 F41.9 Patient has severe anxiety. Was taking more than recommende d dosage of Xanax which was prescribed by previous provider. Decreased to appropriat e amount. Thiamine deficiency 3993 55647 E51.9 Wernicke-K orsakoff syndromeHa s significan t Thiamine deficiency . Nystagmus 953326 H55.00 Oscillopsi a - Gabapentin 300 mg TID Vitamin D deficiency 347 61426 E55.9 Continue regimen. Hypokalemia 45937622 E87 .6 Gastroesop hageal reflux disease without esophagitis 078353548 K21.9 Muscle weakness 22602614 M62.81 [id number] Cori Mcgee [facility]-, [facility] Main Office [address] [place] [address] 07/11/2018 10:38:05 07/11/2018 13:05:50 Moderate recurrent major depression 01661012 F33.2 Having significan t depression . Hypothyroidism 61478163 E03.9 Continue with regimen. Loss of appetite 5421817 6 R63.0 Continue with medication as patient is tolerating and doing well with increasing appetite. Anxiety 69598319 F41.9 Patient has severe anxiety. Was taking more than recommende d dosage of Xanax which was prescribed by previous provider. Decreased to appropriat e amount. Thiamine deficiency 3993 61966 E51.9 Wernicke-K orsakoff syndromeHa s significan t Thiamine deficiency . Nystagmus 955767 H55.00 Oscillopsi a - Gabapentin 300 mg TID Vitamin D deficiency 347 66517 E55.9 Continue regimen. Hypokalemia 50376910 E87 .6 Gastroesop hageal reflux disease without esophagitis 907129169 K21.9 Muscle weakness 37789717 M62.81 Working with PT and OT. Chronic fa tigue syndrome 90455824 R53.82 Rheumatoid arthritis 698 31015 M06.9 [id number] MADDI Dove-, [facility] Main Office [address] [place] [address] 08/08/2018 07:51:14 08/08/2018 14:28:01 Moderate recurrent major depression 72632206 F33.2 Continue Citalopram . Hypothyroidism 91241663 E03.9 Continue with regimen. Loss of appetite 8050656 6 R63.0 Continue with medication as patient is tolerating and doing well with increasing appetite. Is gaining weight. Anxiety 51572746 F41.9 Will start Buspirone. Thiamine deficiency 3993 56795 E51.9 Wernicke-K orsakoff syndromeHa s significan t Thiamine deficiency . Nystagmus 601682 H55.00 Oscillopsi a - Gabapentin 300 mg TID Vitamin D deficiency 347 67695 E55.9 Continue regimen. Hypokalemia 86586924 E87 .6 Gastroesop hageal reflux disease without esophagitis 220203550 K21.9 Muscle weakness 90887494 M62.81 Working with PT and OT. Counseled on safety. [id number] MADDI Dove-, [facility] Main Office [address] [place] [address] 09/05/2018 12:36:08 09/05/2018 13:56:51 Moderate recurrent major depression 16283748 F33.2 Couldn't tolerate 40mg. Take 20 mg daily. Hypothyroidism 17523767 E03.9 Continue with current regimen. Loss of appetite 2991806 6 R63.0 Continue with medication as patient is tolerating and doing well with increasing appetite. Is gaining weight. Anxiety 15791518 F41.9 Tolerating . Continue regimen. Thiamine deficiency 3993 46408 E51.9 Wernicke-K orsakoff syndromeHa s significan t Thiamine deficiency . Nystagmus 768414 H55.00 Oscillopsi a - Gabapentin 300 mg TID Vitamin D deficiency 347 59426 E55.9 Continue regimen. Hypokalemia 00991418 E87 .6 Continue regimen. Gastroesop hageal reflux disease without esophagitis 216299093 K21.9 Continue regimen. Muscle weakness 73329953 M62.81 Discharged from service. Dizziness and giddiness 940596405 R42 Having a lot of issues with dizziness. Will try Meclizine. [id number] MARTHA Dove, [facility] Main Office [address] [place] [address] 09/26/2018 12:24:56 09/26/2018 12:50:14 Moderate recurrent major depression 92407829 F33.2 Doing better. Has bouts of increased depression intermitte ntly. Hypothyroidism 21233831 E03.9 Continue with current regimen. Loss of appetite 4659826 6 R63.0 Continue with medication as patient is tolerating and doing well with increasing appetite. Is gaining weight. Anxiety 46715125 F41.9 Tolerating . Continue regimen. Thiamine deficiency 3993 37866 E51.9 Wernicke-K orsakoff syndromeHa s significan t Thiamine deficiency . Nystagmus 640974 H55.00 Oscillopsi a - Gabapentin 300 mg TID Vitamin D deficiency 347 44599 E55.9 Continue regimen. Hypokalemia 83997420 E87 .6 Continue regimen. Gastroesop hageal reflux disease without esophagitis 304200254 K21.9 Continue regimen. Muscle weakness 96882253 M62.81 Counseled on continued exercises. Dizziness and giddiness 153694000 R42 Stopped Meclizine as patient did not feel it was not helping. [id number] FLORESITA Dove, [facility] Main Office [address] [place] [address] 10/24/2018 10:15:41 11/05/2018 11:26:23 Moderate recurrent major depression 79664745 F33.2 Started Venlafaxin e to help with depression and also helping with anxiety. Hypothyroidism 14399865 E03.9 Continue with current regimen. Loss of appetite 1138334 6 R63.0 Continue with medication as patient is tolerating and doing well with increasing appetite. Is gaining weight. Anxiety 72583665 F41.9 Tolerating . Continue regimen. Thiamine deficiency 3993 25338 E51.9 Wernicke-K orsakoff syndromeHa s significan t Thiamine deficiency . Nystagmus 416617 H55.00 Oscillopsi a - Gabapentin 300 mg TID Vitamin D deficiency 347 44094 E55.9 Continue regimen. Hypokalemia 77559226 E87 .6 Continue regimen. Gastroesop hageal reflux disease without esophagitis 100166239 K21.9 Continue regimen. Muscle weakness 88678337 M62.81 Counseled on continued exercises. Vertigo 940338223 R42 Will send to Vestibular specialist at [facility] for further evaluation . [id number] FLORES[address] Dove, [facility] Main Office [address] [place] [address] 11/21/2018 07:45:54 11/21/2018 11:01:45 Moderate recurrent major depression 38160335 F33.2 Doing well. Continue regimen. Hypothyroidism 90712816 E03.9 Labs ordered Loss of appetite 7481578 6 R63.0 Continue with medication as patient is tolerating and doing well with increasing appetite. Is gaining weight. Anxiety 77230873 F41.9 Tolerating . Continue regimen. Thiamine deficiency 3993 03701 E51.9 Wernicke-K orsakoff syndromeHa s significan t Thiamine deficiency . Nystagmus 590047 H55.00 Gabapentin d/c Vitamin D deficiency 347 43387 E55.9 Labs ordered Hypokalemia 14042671 E87 .6 Labs ordered. Gastroesop hageal reflux disease without esophagitis 303947171 K21.9 Continue regimen. Muscle weakness 74751965 M62.81 Counseled on continued exercises. Vertigo 629546601 R42 Has appointmen t with the clinic at the end of Nov. Essential hypertension 02469522 I10 Labs ordered Anemia 392417478 D64.9 labs ordered [id number] MADDI Dove-BRIDGER, [facility] Main Office [address] [place] [address] 12/19/2018 07:45:22 12/19/2018 19:31:39 Moderate recurrent major depression 68364669 F33.2 Doing well. Continue regimen. Hypothyroidism 24999144 E03.9 Loss of appetite 4065507 6 R63.0 Resolved. Continue the Mirtazapin e Anxiety 57137225 F41.9 Tolerating . Continue regimen. Thiamine deficiency 3993 77125 E51.9 Wernicke-K orsakoff syndromeHa s significan t Thiamine deficiency . Vitamin D deficiency 347 93391 E55.9 Continue regimen Hypokalemia 35879674 E87 .6 Gastroesop hageal reflux disease without esophagitis 384579029 K21.9 Continue regimen. Muscle weakness 04323118 M62.81 Counseled on continued exercises. Essential hypertension 82262089 I10 Slightly elevated due to increased stress. [id number] FLORESITA Dove, [facility] Main Office [address] [place] [address] 01/16/2019 08:56:41 01/16/2019 13:10:35 Moderate recurrent major depression 90587534 F33.2 Continue regimen. Hypothyroidism 15770932 E03.9 Labs obtained at visit.Has had some level changes. Loss of appetite 9775278 6 R63.0 Restart Mirtazapin e as patient has lost appetite eating maybe once daily. Anxiety 64518618 F41.9 Tolerating . Continue regimen. Thiamine deficiency 3993 09330 E51.9 Wernicke-K orsakoff syndromeHa s significan t Thiamine deficiency . Hypokalemia 44639113 E87 .6 Labs obtained at visit. Muscle weakness 85709667 M62.81 Counseled on continued exercises. Essential hypertension 72205970 I10 Labs obtained at visit. Headache 97069232 R51 NSAIDs has been helping with ROSS. Has appointmen t with specialist tomorrow. [id number] Cori Mcgee [facility], [facility] Main Office [address] [place] [address] 02/13/2019 10:05:03 02/13/2019 12:11:14 Moderate recurrent major depression 94935372 F33.2 Having exacerbati ons.Increa sed Mirtazapin e for appetite and depression . Hypothyroidism 52619394 E03.9 Increase Levothyrox ine 75 mcg Loss of appetite 4036734 6 R63.0 Increase Mirtazapin e to help with decreased appetite. Thiamine deficiency 3993 44406 E51.9 Wernicke-K orsakoff syndromeHa s significan t Thiamine deficiency . Muscle weakness 55439930 M62.81 Counseled on continued exercises. Essential hypertension 97994581 I10 Stable. Continue. Regimen. Dyspnea at rest 14305091 7 R06.00 [id number] Cori Mcgee [facility], [facility] Main Office [address] [place] [address] 03/13/2019 10:43:39 03/13/2019 11:42:02 Moderate recurrent major depression 58887406 F33.2 Doing much better, but could benefit from counseling . Patient is in process of moving into own apartment. Hypothyroidism 13867149 E03.9 labs obtained Loss of appetite 4485948 6 R63.0 Doing better with appetite. Continue medication . Thiamine deficiency 3993 33430 E51.9 Wernicke-K orsakoff syndromeHa s significan t Thiamine deficiency . Muscle weakness 13511642 M62.81 Counseled on continued exercises. Essential hypertension 86867774 I10 Labs obtained at visit. [id number] MARTHA Dove, [facility] Main Office [address] [place] [address] 04/10/2019 10:21:32 04/10/2019 11:34:52 Moderate recurrent major depression 00554292 F33.[address] Hypothyroidism 12328284 E03.9 Continue medication and will draw labs at next visit to check levels. Thiamine deficiency 3993 95364 E51.9 Wernicke-K orsakoff syndromeHa s significan t Thiamine deficiency .Will obtain labs at next visit. Muscle weakness 56019848 M62.81 Counseled on continued exercises to improve weakness. Working with outpatient physical therapy. Essential hypertension 84688225 I10 Doing well, controlled . Will monitor. Counseled on sodium reduction. Dyspnea 211358883 R06.02 Has appointmen t with pulmonary later this month. Health Concerns Section Related Observation LastModified by Organization Detai ls LastModified Time None Recorded Concern Status LastModified by Organization Details LastModified Time None Recorded Advance Directives Directive N: Payers Insurance Date Sequence Insurance Name Policy Number Policy Merchant Covered Member ID Merchant Member ID Guarantor Name 04/09/2019 1 [place] Hermila Wall [id number] Hermila Wall 04/09/2019 2 [place] [employer] [place] [employer] Hermila Wall [id number] Hermila Wall Notes Date Note Type Note Provider Name and Address Organization Details Recorded Time 12/19/2018 text/html 48 y/o female he re for follow up visit. Movement specialist sending to Neurology at [facility] for further evaluation and treatment and vertigo ruled out. Patient has been having increased anxiety and depression because previous of Dr. Sweeney's office was irritated that patient wanted to f/u with another neurologist after seeing movement disorder clinic. Abnormal lab results. Patient reports of having intermittent breast pain. Patient is unable to ambulate on uneven surfaces, is high fall risk, weak, and requires use of a four-wheel walker and often requires usage of wheelchair due to weakness. FLORESITA Dove, [facility] [address] [place], [address], [facility] 12/19/2018 11:08:24 01/16/2019 text/html 48 y/o female he re for follow up visit. Has had daily headaches and has been taking Ibuprofen BID which has helped. Has appointment with specialist tomorrow. Patient has reported that she has lost appetite and has not been eating since stopping Mirtazapine. Patient continues to report of having intermittent breast pain. Cori Mcgee FLORESITA, AMARIVLAD-BRIDGER [address] [place], [address], [facility] 01/16/2019 12:15:53 02/13/2019 text/html 48 y/o female he re for follow up visit. Patient has been following up with specialists. Patient reports that she has had a decline with depression. Has been having increasing depression spells. Has appointment with [facility] on Tuesday for evaluation vestibular. Patient reports having increased SOB, abdominal pain. Has significant history of cancer. Cori McgeeFLORESITA, AMARIVLAD- [address] [place], [address], [facility] 02/13/2019 11:28:22 03/13/2019 text/html 48 y/o female he re for follow up visit. Patient is doing better with appetite. Blood pressure doing stable. Thyroid medication changes last visit and patient tolerating well. Recheck at visit. Cori McgeeFLORESITA, AMARIVLAD- [address] [place], [address], [facility] 03/13/2019 11:40:31 04/10/2019 text/html 48 y/o female he re for follow up visit. Patient recently moved from brother's house into her own place. Patient has established care with another oncologist over at [facility] [place] who is further evaluating and sending to pulmonary. Patient seeing psychiatrist now. Patient is tolerating changes in medication last visit. Appetite is better. Cori Palomo FLORESITA Mcgee, PMHNP-BC [address] [place], [address], [facility] 04/10/2019 11:32:43 OBGyn Episode No OBEpisode recorded.
--- OUTSIDE RECORDS SUMMARY | 2025-04-16 16:26 | XMS_ITS | Data Portability ---
Author Organization [facility] Dermato [facility], Main Office Address [address] [facility] [address] [place] [address] Assessment No assessment recorded. Plan of Treatment Reminders Order Date Submit Date Provider Last Modified By Organization Details Last Modified Time Details Appointments None record ed. Lab None record ed. Referral None record ed. Procedures biopsy , skin (PROC) 025 02/07/20 25 [email or web address] Not available 5 09:57:42 biopsy , skin (PROC) 020 05/21/20 20 [email or web address] Not available 0 10:21:40 Surgeries None record ed. Imaging None record ed. Medication Orders None record ed. Patient TargetsNo targets recorded. Patient Instructions Encounter Date Encounter Id Patient Instructions Last Modified By Organization Details Last Modified Time 02/06/2025 [id number] Informed consent . EtOH prep. 1% lidocaine with epinephrine. Shave biopsy from: above location AlCL3 and cautery hemostasis. Aquaphor, bandage and wound care given. Will call pt with path. To Dr Villanueva if a CA. Pt has seen him before. [email or web address] Not available 02/06/2025 09:57:40 Reason for Referral None Reported. Results Created Date Observation Date Name Description Value Unit Range Abnormal Flag Note LastModifiedBy Organization Detail LastModifiedTime Result Notes None recorded. Problems Name Problem SNOMED Code Status Onset Date Resolution Date Notes Provider Name and Address Organization Details Recorded Time Neoplasm of uncertain behavior of skin 99594971 Active 025 Leroy Cotton MD [address] [facility] [address], [place], [phone] [place] [address] Dermatology 5 18:17:46 Skin changes due to chronic exposure to non-ionizin g radiation 580658189 Active 025 Leroy Cotton MD [address], [place], [phone], [facility] Dermatology 5 18:18:22 Problem Notes None recorded. Procedures Surgical History Date Name Laterality Status Provider Name and Address Organization Details Recorded Time 05/21/2020 Shave Biopsy completed Leroy Cotton MD [address], [place], [address], [facility] 05/21/2020 10:20:21 Imaging Results None recorded. Procedure Notes None recorded. Medical Equipment None Reported. Medications Name Sig Start Date Stop Date Status Note LastModified by Organization Details LastModified Time quetiapine 25 mg tablet active Not Available Not Available No t Available atorvastatin 40 mg tablet active Not Available Not Available Not Available buspirone 5 mg tablet TAKE 1 TABLET BY MOUTH TWICE DAILY active Not Available Not Available No t Available trazodone 50 mg tablet TAKE 1 TABLET BY MOUTH EVERY DAY NEEDED active Not Available Not Available No t Available clonazepam 0.5 mg tablet active Not Available Not Availabl e Not Available hydroxyzine pamoate 50 mg capsule active Not Available Not Available Not Available hydrocodone 10 mg-acetaminop hen 325 mg tablet TAKE 1 TABLET BY MOUTH EVERY 6 HOURS NEEDED active Not Available Not Available No t Available amitriptyline 50 mg tablet active Not Available Not Available Not Available levothyroxine 75 mcg tablet active Not Available Not Availabl e Not Available amoxicillin 400 mg-potassium clavulanate 57 mg/5 mL oral suspension TAKE 10 ML BY MOUTH TWICE DAILY FOR 7 DAYS. DISCARD REMAINDER active Not Available Not Available No t Available alprazolam 0.5 mg tablet TAKE 1-2 TABLETS BY MOUTH 30 MINUTES PRIOR TO PROCEDURE active Not Available Not Available No t Available thiamine HCl (vitamin B1) 100 mg/mL injection solution ADM 1 ML IM D FOR 3 DAYS THEN START THE TS PO active Not Available Not Available No t Available propranolol 40 mg tablet active Not Available Not Available Not Available citalopram 20 mg tablet active Not Available Not Available No t Available levothyroxine 50 mcg tablet TAKE 1 TABLET BY MOUTH DAILY ON AN EMPTY STOMACH active Not Available Not Available No t Available hydrocodone 7.5 mg-acetaminop hen 325 mg tablet active Not Available Not Available Not Available pantoprazole 40 mg tablet,delaye d release TAKE 1 TABLET BY MOUTH EVERY DAY active Not Available Not Available No t Available ranitidine 150 mg tablet active Not Available Not Availabl e Not Available hydroxyzine HCl 25 mg tablet active Not Available Not Available Not Available mupirocin 2 % topical ointment APPLY A SMALL AMOUNT TO THE AFFECTED AREA BY TOPICAL ROUTE 3 TIMES PER DAY for 10 days. active Not Available Not Available No t Available mirtazapine 15 mg tablet active Not Available Not Available Not Available ergocalcifero l (vitamin D2) 1,250 mcg (50,000 unit) capsule TAKE 1 CAPSULE BY MOUTH WEEKLY active Not Available Not Available No t Available diazepam 10 mg tablet active Not Available Not Available No t Available morphine 15 mg immediate release tablet active Not Available Not Available Not Available dicyclomine 10 mg capsule active Not Available Not Availabl e Not Available escitalopram 10 mg tablet active Not Available Not Available Not Available ezetimibe 10 mg tablet active Not Available Not Available No t Available rosuvastatin 40 mg tablet TAKE 1 TABLET BY MOUTH EVERY DAY IN THE EVENING active Not Available Not Available No t Available bupropion HCl XL 150 mg 24 hr tablet, extended release active Not Available Not Available Not Available mirtazapine 7.5 mg tablet active Not Available Not Availabl e Not Available duloxetine 30 mg capsule,delay ed release active Not Available Not Available N ot Available Livalo 2 mg tablet TAKE 1 TABLET BY MOUTH EVERY DAY active Not Available Not Available No t Available Prolia 60 mg/mL subcutaneous syringe INJECT 1ML UNDER THE SKIN ONCE active Not Available Not Available No t Available Narcan 4 mg/actuation nasal spray active Not Available Not Available Not Available Vitals None Recorded Social History None recorded. Functional Status None recorded. Mental Status None recorded. Family History Nothing Reported. Medical History No medical history recorded. Gynecological HistoryNo gynecological history recorded. Obstetrics History GPAL:G 0 P 0 0 0 0 Past Encounters Encounter ID Performer Location Encounter Start Date Encounter Closed Date Diagnosis/Indication Diagnosis SNOMED-CT Code Diagnosis ICD10 Code Diagnosis Note [id number] Leroy Cotton MD Main Office [address] [facility] [address] [place] [id number] 05/21/2020 09:40:31 05/21/2020 10:22:15 Neoplasm of uncertain behavior of skin 83216107 D48.5 r upper arm outer [id number] Leroy Cotton MD Main Office [address] [facility] [address] [place] [phone] 02/06/2025 09:38:35 02/06/2025 09:59:04 Neoplasm of uncertain behavior of skin 28816107 D48.5 Health Concerns Section Related Observation LastModified by Organization Detai ls LastModified Time None Recorded Concern Status LastModified by Organization Details LastModified Time None Recorded Advance Directives Directive None Recorded Payers Insurance Date Sequence Insurance Name Policy Number Policy Merchant Covered Member ID Merchant Member ID Guarantor Name 02/27/2025 1 MEDICARE B-[place]: WPS Hermila Wall [id number] Hermila Wall 02/27/2025 1 [facility] (MEDICARE REPLACEMENT/A DVANTAGE - HMO) [id number] Hermila Wall [id number] Hermila Wall Notes Date Note Type Note Provider Name and Address Organization Details Recorded Time 05/21/2020 text/html Biopsy of r upper arm. Leroy Cotton MD [address], [place], [address], [facility] 05/21/2020 10:22:06 02/06/2025 text/html Bx upper chest, left of mid, r/o BCC Leroy Cotton MD [address], [place], [address], [facility] 02/06/2025 09:58:54 OBGyn Episode No OBEpisode recorded.
--- OUTSIDE RECORDS SUMMARY | 2025-04-16 16:26 | XMS_ITS | Clinical Summary ---
Author Organization [facility] Sellf Address [address] [facility] [place] [address] Care Team Providers Care Cryptanalyst Name Role Phone Skylar Kc MD Unavailable Unavailable Marquita Umanzor RN Unavailable [phone] Monserrat Smith MD Primary Care Provider Source Comments [facility],non-owned Affiliates and Associated Physician Practices is amultiple site organization consisting of ambulatory clinics and hospital sitesin [place], [place], [place] and [place]. This disclosure is being madepursuant to the Care Everywhere program and may not contain all information available regarding this patient. Last updated 18.[facility] Allergies Active Allergy Reactions Criticality Noted Date Comments Adhesive Sensitivity 06/11/2009 blisters Hydromorphone Hcl Rash 06/11/2009 Hydromorphone 07/18/2016 Hydromorphone Anaphylaxis High Reaction: ANAPHYLAXIS, , [place] Anaphylaxis High Medications * Be aware that medications may not be up to date on this document. Alwaysverify current medications with the patient. 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 This has been a chronic ongoing problem and previous neurological assessment/work up was negative. Has refused placement in the past. Likely occurring the setting of deconditioning, multiple hospitalization, poor nutrition and MDD. - PT/OT Central scotoma, bilateral 04/17/2019 VALERY (generalized anxiety disorder) 04/05/2019 Overview (10/18/2022): Last Assessment & Plan: Chronic, persistent symptoms of Generalized Anxiety Disorder [...] therapy. Referral provided to therapist office today. Headache 01/16/2019 Thiamine deficiency 07/25/2018 Visual loss, bilateral 07/25/2018 Nutritional amblyopia of both eyes 07/25/2018 Vertical nystagmus 05/10/2018 Gait disturbance 05/10/2018 Abnormal weight loss 03/29/2018 Intractable vomiting with nausea 03/16/2018 Acute gastric ulcer without hemorrhage or perfor ation 12/19/2017 Epigastric pain 12/06/2017 Abdominal hernia 09/08/2017 Malignant neoplasm of both b reasts in female, estrogen receptor negative 01/30/2014 Overview (10/18/2022): Left breast invasive ductal carcinoma, status post left modified radical mastectomy in 2010. ER positive at 1%, MA negative, HER-2/macy negative. T1c N1 M0. Maximum [...] status post lumpectomy in 1998. ER negative, MA negative. Adjuvant chemotherapy and radiation therapy. Positive BRCA1 mutation. S/p bilateral mastectomy and total abdominal hysterectomy and bilateral salpingo-oophorectomy. Last Assessment & Plan: Currently in remission. S/P lumpectomy of breast 06/11/2009 Resolved Problems Problem Noted Date Diagnosed Date Resolved Date Diarrhea 12/06/2017 11/15/2022 Encounters Date Type Department Care Team Description 02/07/2025 Lab Requisition [facility] D[facility] Lab [address] [facility] [place] [address] Leroy Cotton MD from Last 3 Months Family History Medical History Relation Name Comments Cancer - Breast Maternal Grandmother Brain Tumor Mother at 44 Glaucoma Neg Hx Relation Name Status Comments Maternal Grandmother Mother Social History Tobacco Use Types Packs/Day Years Used Date Smoking Tobacco: Never Smokeless Tobacco: Never Tobacco Cessation:Counseling Given: Not Answered Alcohol Use Standard Drinks/Week Comments No 0 (1 standard drink = 0.6 oz pur e alcohol) Comments No Sex and Gender Information Value Date Recorded Sex Assigned at Not on file Legal Sex 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 Gender Identity Not on file Sexual Orientation Not on file Last Filed Vital Signs Vital Sign Reading Time Taken Comments Blood Pressure 140/96 10/18/2022 10:39 AM SKIP LOAD DRIVER Pulse 84 10/18/2022 10:39 AM SKIP LOAD DRIVER Temperature 36.8 C (98.2 F) 10/18/2022 10:39 AM SKIP LOAD DRIVER Respiratory Rate 18 10/18/2022 10:39 AM SKIP LOAD DRIVER Oxygen Saturation 98% 06/30/2018 2:29 PM CDT Inhaled Oxygen Concentration - - Weight 62.4 kg (137 lb 9.6 oz) 10/18/2022 10:39 AM SKIP LOAD DRIVER Height 160 cm (5' 3) 10/18/2022 10:39 AM SKIP LOAD DRIVER Body Mass Index 24.37 10/18/2022 10:39 AM SKIP LOAD DRIVER Plan of Treatment Health Maintenance Due Date Last Done Comments COLOGUARD (AGES 45-75) - COL ON CA SCREENING 1969 COLON MONITORING 1969 COLONOSCOPY - COLON CA SCREENING 1969 CT COLONOGRAPHY - COLON CA SCREENING 1969 Colorectal Cancer Screening 1969 FIT - COLON CA SCREENING 1969 FLEX SIG - COLON CA SCREENING 1969 LIPID TESTING 1969 MAMMOGRAM 1969 DTAP/TDAP/TD VACCINES (1 - Tdap) 1988 HEPATITIS B VACCINE (1 of 3 - 19+ 3-dose series) 1988 PNEUMOCOCCAL VACCINE 50+ (1 of 1 - PCV) 2019 ZOSTER VACCINE (1 of 2) 2019 COVID-19 VACCINE (1 - 2023-2 5 season) 2024 DEPRESSION SCREENING 10/10/2024 MEDICARE AWV CALENDAR YEAR 2024 INFLUENZA VACCINE (Season Ended) 2025 07/10/2019, 10/25/2013 HEPATITIS C SCREENING Completed 05/10/2018 HIV SCREENING Completed 05/10/2018 HIB VACCINE Aged Out No longer eligi ble based on patient's age to complete this topic HPV VACCINE Aged Out No longer eligi ble based on patient's age to complete this topic MENINGOCOCCAL (Group B) VACCINE SHARED DECISION-MAKING Aged Out No longer eligible based on patient's age to complete this topic MENINGOCOCCAL GROUPS A/C/Y/W VACCINE Aged Out No longer eligible b ased on patient's age to complete this topic Procedures Procedure Name Priority Date/Time Associated Diagnosis Comments DERMATOPATHOLOGY Routine 02/06/2025 12:0 0 AM CDT HEPATITIS C AB SCREEN RFLX NAAT QUANT STAT 05/10/2018 1:18 PM CDT HIV-1 HIV-2 ANTIGEN/ANTIBODY STAT 05/10/2018 1:18 PM CDT from Last 3 Months or Most Recently Relevant to Health Maintenance Results * DERMATOPATHOLOGY (02/06/2025 12:00 AM CDT) Case Report Dermatopathology Report Case: [id number] Authorizing Provider: Leroy Cotton MD Collected: 02/06/2025 12:00 AM Ordering Location: [facility] - Received: 02/07/2025 12:03 PM DermPath Lab Pathologist: Digna Huff MD Specimen: Skin, upper chest-left of mid 2:24 PM CDT DERMATOPATHOLOGY LABORATORY Final Diagnosis Specimen A. SKIN, upper chest-left of mid: ECCRINE POROMA, SUPERFICIAL PORTIONS OF (D23.9) (see microscopic description) 2:24 PM CDT DERMATOPATHOLOGY LABORATORY at 1424 CDT Clinical History R/O BCC 2:24 PM CDT DERMATOPATHOLOGY LABORATORY Gross Description Specimen A: Received is one formalin filled container labeled with the patient's name and designated upper chest-left of mid. The specimen consists of a shave biopsy measuring 4x3x1 mm. Jar 0. 5 2:24 PM CDT DERMATOPATHOLOGY LABORATORY Microscopic Description Specimen A. SKIN, upper chest-left of mid: There is a proliferation of monotonous polyhedral cells containing small duct-like spaces. 5 2:24 PM CDT DERMATOPATHOLOGY LABORATORY Disclaimer An external and internal positive and negative controls are appropriate for the histochemical, immunohistochemical and immunofluorescence stain(s) in this case (if any), except where stated explicitly. The performance characteristics of the stain(s) cited in this report were developed and its performance characteristic determined by the Dermatopathology Laboratory at [facility], directed by Dr. Dima Shaver. These tests need not be, and therefore are not, approved by the [place] Food and Drug Administration. The tests are used for clinical purposes. Billing Codes Specimen Charges Stain Charges 32922 1 5 2:24 PM CDT DERMATOPATHOLOGY LABORATORY Embedded Images 5 2:24 PM CDT DERMATOPATHOLOGY LABORATORY Pathology/Cytolog y TISSUE SPECIMEN FROM SKIN / Unknown 02/06/2025 02/07/2025 12:03 PM CDT Leroy Cotton MD LAB - PATHOLOGY/CYTOLOGY ORDERAB LES Final Result DERMATOPATHOLOGY LABORATORY [facility] Department of Dermatology [address], [address] [phone] * HIV-1 HIV-2 ANTIGEN/ANTIBODY (05/10/2018 1:18 PM CDT) HIV Antigen/Antibod y 1 & 2 Non-reacti ve Non-react sharee 05/10/2018 2:[address] [facility] Comment: Neither HIV-1 p24 Antigen nor HIV-1/HIV-2 Antibodies are detected. Blood BLOOD SPECIMEN / Unknown Venipuncture / Unknown 05/10/2018 1:18 PM CDT 05/10/2018 1:21 PM CDT Chilango Henson MD LAB - HEMATOLOGY ORDERAB LES Final Result [address] [phone] * HEPATITIS C AB SCREEN RFLX PCR QUANT (05/10/2018 1:18 PM CDT) Hepatitis C Antibody Non-react sharee Non-reac tive 05/10/2018 2:41 PM CDT [facility] Comment: Hepatitis C Antibody screen indicates no serologic evidence of past or current infection with Hepatitis C Virus. Patients with unexplained liver disease who are immunocompromised or suspected of having acute Hepatitis C infection may benefit from Nucleic Acid Test (APARNA) for Hepatitis C Viral RNA to confirm Hepatitis C status. Blood BLOOD SPECIMEN / Unknown Venipuncture / Unknown 05/10/2018 1:18 PM CDT 05/10/2018 1:21 PM CDT Chilango Henson MD LAB - CHEMISTRY ORDERABL ES Final Result Performing Organization Address City/[facility]/ZIP Co de Phone Number [address] [phone] from Last 3 Months or Most Recently Relevant to Health Maintenance Insurance UHC MANAGED MEDICARE ADV MEDICARE [place] UHC MANAGED MEDICARE ADV MEDICARE [place] MEDICARE Advance Directives Documents on File Type Date Recorded Patient Photography Intern Expl anation Adv Directive/Living Will/POA 05/20/2018 5:09 PM * Full Code (Latest Code Status on File) Date Activated Date Inactivated Comments 05/10/2018 3:15 PM 05/17/2018 2:00 PM * Full Code Date Activated Date Inactivated Comments 05/10/2018 2:59 PM 05/10/2018 3:15 PM * Full Code Date Activated Date Inactivated Comments 06/12/2009 3:12 PM 06/13/2009 10:48 PM Care Teams Cryptanalyst Relationship Specialty Start Date End Date Monserrat Smith MD [address] [phone] PCP - General 06/11/22 Skylar Kc MD Internal Medicine 04/26/18 Marquita Umanzor RN Plastics Process Hand 8/2/18
--- OUTSIDE RECORDS SUMMARY | 2025-04-16 16:26 | XMS_ITS | Referral Summary ---
Author Organization [facility] Address [address] [place] [address] Care Team Providers Care Data Warehouse Analyst Name Role Phone Kurtis Tyson MD Unavailable [phone] Helen Sweeney MD Unavailable [phone] Leroy Cotton MD Unavailable [phone] Niles Valencia MD Unavailable [phone] Jaimie Smith MD Primary Care Provide r Curt Layne MD Unavailable Brayden James MD Unavailable Allergies Active Allergy Reactions Criticality Noted Date Comments Adhesive Hives Medium 01/01/2014 Adhesive Tape-Silicones Blisters High 03/26/2020 Hydromorphone Anaphylaxis,Other (See comments) High 03/26/2020 Reaction: ANAPHYLAXIS, , [place] Bark Extract (Pycnogenols) Unknown 03/26/2020 [place] Needle Oil Anaphylaxis High [place] Oil Anaphylaxis High 03/26/2020 [place] Tar Anaphylaxis High Medications levothyroxine (SYNTHROID, LEVOTHROID) 75 mcg tabletIndicatio ns:hypothyroidi sm Take 1 tablet (75 mcg total) 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 [...] 08/27/2019 Assessment & Plan (08/27/2019 7:33 PM BEEKEEPER FARMER): Known history on home amitriptyline - Continue home amitriptyline 50 mg qd Postural instability 08/27/2019 Assessment & Plan (09/04/2019 11:15 AM BEEKEEPER FARMER): Patient with known history of postural instability [...] 09/04 Assessment & Plan (08/28/2019 10:37 AM BEEKEEPER FARMER): Patient with known history of postural instability [...] 08/27/2019 Assessment & Plan (09/02/2019 9:11 AM BEEKEEPER FARMER): Patient hx consistent with mechanical fall (walker [...] flexeril Assessment & Plan (08/29/2019 7:22 AM BEEKEEPER FARMER): Patient hx consistent with mechanical fall (walker [...] 08/27/2019 Assessment & Plan (09/04/2019 11:18 AM BEEKEEPER FARMER): S/p fall at home. Patient unable to ambulate due to pain. Increased pain with movement of left leg, no TTP on examination - Tylenol 1g q6h scheduled - Flexeril (09/01) 2.5 -> 5 tid -> 10 tid - MSIR 15 mg q4h prn first line -- Holding in the setting of possible obstruction Assessment & Plan (08/28/2019 10:36 AM BEEKEEPER FARMER): S/p fall at home. Patient unable to [...] 04/05/2019 Assessment & Plan (09/04/2019 11:16 AM BEEKEEPER FARMER): Known history on home amitriptyline - Discussed [...] 03/30/2018 Assessment & Plan (08/31/2019 4:34 PM BEEKEEPER FARMER): Known h/o on levothyroxine at home - Continue levothyroxine 75 mcg - Check TSH -- WNL Assessment & Plan (08/28/2019 10:36 AM BEEKEEPER FARMER): Known h/o on levothyroxine at home - [...] mastectomy in 2010. ER positive at 1%, VT negative, HER-2/macy negative. T1c N1 M0. Maximum [...] status post lumpectomy in 1998. ER negative, VT negative. Adjuvant chemotherapy and radiation therapy. Positive BRCA1 mutation. S/p bilateral mastectomy and total abdominal hysterectomy and bilateral salpingo-oophorectomy. Assessment & Plan (03/30/2018 5:23 AM CDT): Currently in remission. Failure to thrive in adult Assessment & Plan (03/30/2018 5:44 AM CDT): Patient has had at two medical hospitalization in the last 2 months for malnutrition/anorexia: 1)[facility] from 02/20 - 03/01 during which an extensive work up was done but no organic cause were identified. Patient required tubes feeds for nurition. Etiology was thought to be 2/2 MDD. Patient was offered voluntary psychiatric admission but declined and did not meet involuntary criteria. Plan was for outpatient f/u through psych oncology clinic. 2) [facility] from 03/16- 03/21 for faliure to thrive. 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 Not on file Not on file Not on file Last Filed Vital Signs Vital Sign Reading Time Taken Comments Blood Pressure 132/84 11/16/2024 10:16 AM BEEKEEPER FARMER Pulse 86 11/16/2024 10:16 AM BEEKEEPER FARMER Temperature 36.6 C (97.9 F) 11/16/2024 10:16 AM BEEKEEPER FARMER Respiratory Rate 18 11/16/2024 10:16 AM BEEKEEPER FARMER Oxygen Saturation 98% 11/16/2024 10:16 AM BEEKEEPER FARMER Inhaled Oxygen Concentration - - Weight 68.9 kg (152 lb) 11/16/2024 10:16 AM BEEKEEPER FARMER Height 157.5 cm (5' 2) 11/16/2024 10:16 AM BEEKEEPER FARMER Body Mass Index 27.8 11/16/2024 10:16 AM BEEKEEPER FARMER Plan of Treatment Not on file Medical Devices Implanted Type Area Tobacco Farmworker Device Identifier Shelf Expiration Date Model / Serial / Lot Graft Flexhd P Thk [id number] X0.8-1.4mm - [id number] - [id number] Implanted:Qty: 1 on 11/14/2017 by Willem Padilla MD at [facility] Mesh N/A: Abdomen Musculoskeletal Transplant 06/08/2020 [id number] / [id number] / Description:128 total sq cm 96 sq [...] PM CDT) Hep A IgM Nonreactive Nonreactive [facility] Comment: Interpretive Data: If Hep A IgM Ab is reported as Equivocal, a new sample should be drawn in two weeks for testing. Current interpretive data was last revised on 19. Hep B core IgM Nonreactive Nonreactive [facility] Comment: Interpretive Data If HepB Core IgM Ab is reported as Equivocal, a new sample should be drawn in two weeks for testing. Current interpretive data was last revised on 19. Hep C Ab Nonreactive Nonreactive [facility] Comment: Interpretive Data Nonreactive: Antibodies to HCV [...] last revised on 2019. HepBsAg Nonreactive Nonreactive [facility] Blood specimen (specimen) 03/24/2020 12:04 PM CDT 03/24/2020 1:58 PM CDT Angel Rogers MD LAB MICROBIOLOGY - GENERAL ORDERABLES Final Result [facility] [id number] [address] [place] [address] from Last 3 Months or Most Recently Relevant to Health Maintenance Insurance [facility] MEDICARE ADVANTAGE [facility] Address: [address] [address] [place] [address] [facility] MEDICARE UHC MEDICARE ADVANTAGE [facility] Address: [address] [address] [place] [address] [employer] [facility] MEDICARE ADVANTAGE [facility] Address: [address] [address] [place] [address] Advance Directives For more information, please contact: [phone] Documents on File Type Date Recorded 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 ADVANCE DIRECTIVE 03/22/2018 10:30 AM 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 * Full Code (Latest Code Status on [...] 2:15 PM 03/16/2018 2:41 PM Care Teams Data Warehouse Analyst Relationship Specialty Start Date End Date Jaimie Smith MD [address] [facility] [address] [place] [address] PCP - General Internal Medicine 03/24/20 Kurtis Tyson MD Surgeon Ophthalmology 04/02/19 [place] [address] [place] [address] Referring Physician Ophthalmology 04/02/19 Leroy Cotton MD [address] [facility] [address] [place] [address] Referring Physician Dermatology 12/06/19 [place] [address] [facility] [address] [place] [address] Consulting Physician Pulmonary Disease 03/24/20 Curt Layne MD [address] [facility] [address] [place] [address] Consulting Physician Gastroenterology 08/14/21 Brayden James MD [address] [facility] [address] [place] [address] Consulting Physician Medical Oncology 11/10/22
--- OUTSIDE RECORDS SUMMARY | 2025-04-16 16:27 | XMS_ITS | Encounter Summary ---
Author Organization [facility] Address [address] [place] [address] Phone Care Team Providers Care Fiberglass Container Winding Operator Name Role Phone Kurtis Tyson MD Unavailable [phone] Helen Sweeney MD Unavailable [phone] Leroy Cotton MD Unavailable [phone] Niles Valencia MD Unavailable [phone] Jaimie Smith MD Primary Care Provide r Curt Layne MD Unavailable Brayden James MD Unavailable [phone] Encounter Details Date Type Department Care Team (Latest Contact Info) Description 04/13/2023 Orders Only [facility] Scanning, Provider Social History Tobacco Use Types Packs/Day Years Used Date Smoking Tobacco: Never Smokeless Tobacco: Never Alcohol Use Standard Drinks/Week Comments No 0 (1 standard drink = 0.6 oz pur e alcohol) Comments No Sex and Gender Information Value Date Recorded Sex Assigned at Not on file Legal Sex Female 2:52 PM 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 KIER 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 Gender Identity Not on file Sexual Orientation Not on file 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 Not on file Not on file Not on file documented as of this encounter Plan of Treatment Not on file documented as of this encounter Procedures Procedure Name Priority Date/Time Associated Diagnosis Comments SCAN - LABS 04/13/2023 documented in this encounter Results * SCAN - LABS (04/13/2023) us Provider Scanning Final Result documented in this encounter Visit Diagnoses Not on filedocumented in this encounter Care Teams Fiberglass Container Winding Operator Relationship Specialty Start Date End Date Jaimie Smith MD [address] [facility] [address] [place] [address] PCP - General Internal Medicine 03/24/20 Kurtis Tyson MD Surgeon Ophthalmology 04/02/19 Helen Sweeney MD [address] [place] [address] Referring Physician Ophthalmology 04/02/19 Leroy Cotton MD [address] [facility] [address] [place], [place] [id number] Referring Physician Dermatology 12/06/19 [place] [address] [facility] [address] [place] [address] Consulting Physician Pulmonary Disease 03/24/20 Curt Layne MD [address] [facility] [address] [place] [address] Consulting Physician Gastroenterology 08/14/21 Brayden James MD [address] [facility] [address] [place] [address] Consulting Physician Medical Oncology 11/10/22 documented as of this encounter
== END 2025-04-16 16:22 | disposition home or self-care (01) ==
PROVIDERS: PCP Internal Medicine; Visit Provider Internal Medicine
DX: M79.604 Pain in right leg (principal)
CPT/HCPCS: 93971